=== PATIENT | male | born 1960 | race Caucasian/White ===

== ENCOUNTER → 2017-01-06 | Outpatient (CLI) | payer BC | END | disposition home or self-care (01) | LOC: LABWHC1 11:00 | PROVIDERS: ATTEND Surgery | DX: Z76.82 Awaiting organ transplant status (principal) | CPT/HCPCS: 36415 ==

== ENCOUNTER → 2017-01-25 | Outpatient (CLI) | payer BC ==
[2017-01-25 11:13] LABS: Prostate Specific Antigen 1.65 ng/mL (0.00-4.00)
[2017-01-25 11:25] LABS: Hemoglobin A1C 7.1 % (4.2-6.1)
== END | disposition home or self-care (01) ==
LOC: LABWHC1 08:17
PROVIDERS: ATTEND Surgery
DX: R94.4 Abnormal results of kidney function studies (principal); E78.4 Other hyperlipidemia; N40.0 Benign prostatic hyperplasia without lower urinary tract symptoms; E11.69 Type 2 diabetes mellitus with other specified complication; E03.4 Atrophy of thyroid (acquired)
CPT/HCPCS: 36415; 80061; 82565; 83036; 84153; 84443

== ENCOUNTER → 2017-02-08 | Outpatient (CLI) | payer BC | END | disposition home or self-care (01) | LOC: LABWHC1 09:19 | PROVIDERS: ATTEND Surgery | DX: Z48.22 Encounter for aftercare following kidney transplant (principal) | CPT/HCPCS: 36415 ==

== ENCOUNTER → 2017-03-08 | Outpatient (CLI) | payer BC ==
[2017-03-08 11:55] LABS: Anion Gap 13 mmol/L; Blood Urea Nitrogen 76 mg/dL (9-20); Carbon Dioxide 18 mmol/L (22-30); Chloride 111 mmol/L (98-107); Glucose 111 mg/dL (74-99); Non-African American GFR(MDRD) 16 (>60 ml/min/1.73 sqM); Potassium 5.4 mmol/L (3.5-5.1); Sodium 142 mmol/L (137-145)
== END ==
LOC: LABWHC1 11:19
PROVIDERS: ATTEND Internal Medicine Nephrology
DX: N18.4 Chronic kidney disease, stage 4 (severe) (principal)
CPT/HCPCS: 36415; 80048

== ENCOUNTER → 2017-04-19 | Outpatient (CLI) | payer BC ==
[2017-04-19 08:54] LABS: Basophils % (A) 1 %; CH 30.6; CHCM 35.6; Eosinophils # (A) 0.2 k/uL (0-0.7); Eosinophils % (A) 6 %; HCT 30.1 % (39.0-53.0); HDW 3.15; HGB 10.9 gm/dL (13.0-17.5); Luc # (Auto) 0.13; Luc % (Auto) 4; Lymphocytes # (A) 0.8 k/uL (1.0-4.8); Lymphocytes % (A) 22 %; MCH 31.4 pg (25.0-35.0); MCHC 36.4 g/dL (31.0-37.0); MCV 86.3 fL (80.0-100.0); Mean Platelet Volume 7.5; Monocytes # (A) 0.3 k/uL (0-1.0); Monocytes % (A) 8 %; Neutrophils # (A) 2.2 k/uL (1.3-7.7); Neutrophils % (A) 60 %; RBC 3.48 m/uL (4.30-5.90); WBC 3.7 k/uL (3.8-10.6); WBC (Perox) 3.72
[2017-04-19 08:57] LABS: Appearance,Urine Clear (Clear); Bacteria,Urine Rare /hpf; Bilirubin,Urine Negative (Negative); Glucose,Urine (UA) Trace (Negative); Ketones,Urine Negative (Negative); Leukocyte Esterase,Urine Negative (Negative); Nitrite,Urine Negative (Negative); Particle Count 640; Protein,Urine 2+ (Negative); RBC,Urine <1 /hpf (0-5); Specific Gravity,Urine 1.009 (1.001-1.035); UA Billing (MACRO vs. MICRO) MICRO; Urobilinogen,Urine <2.0 mg/dL (<2.0); WBC,Urine 1 /hpf (0-5)
[2017-04-19 09:44] LABS: Calcium 9.2 mg/dL (8.4-10.2); Phosphorous 4.5 mg/dL (2.5-4.5); Potassium 4.8 mmol/L (3.5-5.1); Uric Acid 7.5 mg/dL (3.5-8.5)
[2017-04-19 09:53] LABS: % Iron Saturation 28.1 % (20-50)
== END | disposition home or self-care (01) ==
LOC: LABWHC1 08:33
PROVIDERS: ATTEND Internal Medicine Nephrology
DX: D64.9 Anemia, unspecified (principal); N18.4 Chronic kidney disease, stage 4 (severe); E55.9 Vitamin D deficiency, unspecified; E21.3 Hyperparathyroidism, unspecified; M10.9 Gout, unspecified; N39.0 Urinary tract infection, site not specified
CPT/HCPCS: 36415; 80048; 81001; 82306; 82728; 83540; 83550; 83735; 83970; 84100; 84550; 85025

== ENCOUNTER → 2017-06-20 | Outpatient (CLI) | payer BC ==
[2017-06-20 10:28] LABS: Basophils % (A) 1 %; CHCM 36.5; Eosinophils # (A) 0.2 k/uL (0-0.7); Eosinophils % (A) 4 %; HCT 32.5 % (39.0-53.0); HDW 3.08; HGB 11.5 gm/dL (13.0-17.5); Luc # (Auto) 0.12; Luc % (Auto) 3; Lymphocytes # (A) 0.8 k/uL (1.0-4.8); Lymphocytes % (A) 18 %; MCH 31.1 pg (25.0-35.0); MCHC 35.3 g/dL (31.0-37.0); MCV 88.1 fL (80.0-100.0); Mean Platelet Volume 8.6; Monocytes # (A) 0.2 k/uL (0-1.0); Monocytes % (A) 5 %; Neutrophils # (A) 3.1 k/uL (1.3-7.7); Neutrophils % (A) 69 %; RBC 3.69 m/uL (4.30-5.90); RDW 14.9 % (11.5-15.5); WBC 4.5 k/uL (3.8-10.6); WBC (Perox) 4.64
[2017-06-20 10:40] LABS: Appearance,Urine Clear (Clear); Bilirubin,Urine Negative (Negative); Glucose,Urine (UA) Negative (Negative); Ketones,Urine Negative (Negative); Leukocyte Esterase,Urine Negative (Negative); Nitrite,Urine Negative (Negative); PH, Urine 5.5 (5.0-8.0); Particle Count 457; Protein,Urine 1+ (Negative); Specific Gravity,Urine 1.006 (1.001-1.035); UA Billing (MACRO vs. MICRO) MICRO; Urobilinogen,Urine <2.0 mg/dL (<2.0); WBC,Urine <1 /hpf (0-5)
[2017-06-20 12:09] LABS: Calcium 9.4 mg/dL (8.4-10.2); Magnesium 1.6 mg/dL (1.6-2.3); Potassium 5.7 mmol/L (3.5-5.1); Uric Acid 7.6 mg/dL (3.5-8.5)
[2017-06-20 12:22] LABS: % Iron Saturation 31.1 % (20-50)
[2017-06-20 14:23] LABS: Hemoglobin A1C 7.8 % (4.2-6.1)
== END | disposition home or self-care (01) ==
LOC: LABWHC1 09:55
PROVIDERS: ATTEND Internal Medicine
DX: N18.4 Chronic kidney disease, stage 4 (severe) (principal); M10.9 Gout, unspecified; N39.0 Urinary tract infection, site not specified; E78.4 Other hyperlipidemia; E11.69 Type 2 diabetes mellitus with other specified complication; R53.83 Other fatigue; E87.8 Other disorders of electrolyte and fluid balance, not elsewhere classified
CPT/HCPCS: 36415; 80048; 80061; 81001; 82306; 83036; 83540; 83550; 83735; 83970; 84100; 84443; 84550; 85025

== ENCOUNTER → 2017-07-08 | Outpatient (CLI) | payer BC ==
--- NOTE | 2017-07-08 13:25 | US ---
EXAMINATION TYPE: US abdomen comp/pelvis limited DATE OF EXAM: 07/08/2017 COMPARISON: NONE CLINICAL HISTORY: N18.4 Chronic kidney disease stage 4. EXAM MEASUREMENTS: Liver Length: 15.6 cm Gallbladder Wall: 0.4 cm CBD: 0.4 cm Spleen: 14.0 cm Right Kidney: 8.8 x 3.7 x 3.3 cm Left Kidney: 12.0 x 5.5 x 5.3 cm Large body habitus, extensive overlying bowel gas. Pancreas: Obscured by bowel gas Liver: left lobe obscured by bowel gas Gallbladder:JASON sign, cholelithiases Evidence for sonographic Roblero's sign: No CBD: wnl Spleen: enlarged Right Kidney: atrophied, cyst measuring 1.4 x 1.5 x 1.2cm, inferior pole obscure by bowel gas Left Kidney: cyst measuring 1.0 x 0.7 x 1.1cm Upper IVC: wnl Abd Aorta: portions obscured by overlying bowel gas Bladder: wall measures 5mm The liver is homogenous. The intrahepatic portion of the IVC and proximal abdominal aorta are within normal limits. There is evidence of cholelithiasis. Common bile duct is unremarkable. The visualize d portions of the pancreas are homogenous. The spleen is unremarkable. IMPRESSION: 1. There is evidence of cholelithiasis. 2. Renal cysts. 3. Atrophic changes right kidney.
== END | disposition home or self-care (01) ==
LOC: RADUSWWP 12:08
PROVIDERS: ATTEND Internal Medicine Nephrology
DX: N28.1 Cyst of kidney, acquired (principal); N26.1 Atrophy of kidney (terminal); N18.4 Chronic kidney disease, stage 4 (severe)
CPT/HCPCS: 76700; 76857

== ENCOUNTER 2017-10-29 18:52 | Inpatient (IN) | payer BC, MEDICARE ==
[2017-10-29] MEDS ORDERED: SODIUM CHLORIDE 0.9% 1,000 ML IV STA (19:13)
--- NOTE | 2017-10-29 19:16 | ED ---
General Adult HPI - General Chief complaint: Recheck/Abnormal Lab/Rx Stated complaint: catheter problem/infection Time Seen by Provider: 10/29/17 19:06 Source: patient, RN notes reviewed Mode of arrival: ambulatory Limitations: no limitations - History of Present Illness Initial comments: 57-year-old male who presents emergency room today with chief complaint of infection to peritoneal dialysis catheter. Patient does admit that he had a catheter placed on 10/06/2017. States he follow back up to surgery today was advised coming here to the emergency room for admission. He states that the catheter does need to be removed. Patient does not that is currently on Keflex. He states that he noticed redness across the lower abdomen starting 3 days ago. Patient doesn't some pain locally. he does admit to some drainage locally to the incision site and around the tubing. Patient denies any other complaints or symptoms. Patient denies any recent fever, chills, shortness of breath, chest pain, back pain, nausea or vomiting, numbness or tingling, dysuria or hematuria, constipation or diarrhea, headaches or visual changes, or any other complaints. - Related Data Home Medications Medication Instructions Recorded Confirmed Aspirin 81 mg PO DAILY 03/01/14 10/29/17 Gemfibrozil [Lopid] 600 mg PO BID 03/01/14 10/29/17 Iron 45 mg PO DAILY 03/01/14 10/29/17 amLODIPine [Norvasc] 10 mg PO W/SUPPER 03/01/14 10/29/17 Atorvastatin [Lipitor] 40 mg PO HS 02/06/16 10/29/17 Cholecalciferol [Vitamin D3] 2,000 unit PO DAILY 02/06/16 10/29/17 Clotrimazole Cream [Clotrim 1 applic TOPICAL DIRECTED PRN 02/06/16 10/29/17 Antifungal Cream] Levothyroxine Sodium [Synthroid] 125 mcg PO W/SUPPER 02/06/16 10/29/17 cloNIDine HCL [Catapres] 0.1 mg PO BID 02/06/16 10/29/17 Allopurinol [Zyloprim] 1 tab PO DAILY 09/22/17 10/29/17 Furosemide [Lasix] 1 tab PO TID 09/22/17 10/29/17 Insulin Lispro [humaLOG Kwikpen] See Protocol SQ DAILY 09/22/17 10/29/17 Sodium Bicarbonate Tab 1 tab PO TID 09/22/17 10/29/17 Hydrocodone/Acetaminophen [[place] 1 - 2 tab PO Q4HR PRN 10/29/17 10/29/17 5-325] Allergies Allergy/AdvReac Type Severity Reaction Status Date / Time No Known Allergies Allergy Verified 10/29/17 19:31 Review of Systems ROS Statement: Those systems with pertinent positive or pertinent negative responses have been documented in the HPI. ROS Other: All systems not noted in ROS Statement are negative. Past Medical History Past Medical History: Diabetes Mellitus, GERD/Reflux, Hyperlipidemia, Hypertension, Renal Disease, Sleep Apnea/CPAP/BIPAP, Thyroid Disorder Additional Past Medical History / Comment(s): varicose veins, fatty liver, states one kidney not functioning properly, rash that comes and goes, History of Any Multi-Drug Resistant Organisms: None Reported Past Surgical History: Orthopedic Surgery, Tonsillectomy Additional Past Surgical History / Comment(s): ORIF- left hip, ancelmo shoulder rotator cuff, uvula removed Past Anesthesia/Blood Transfusion Reactions: No Reported Reaction Past Psychological History: No Psychological Hx Reported Smoking Status: Never smoker Past Alcohol Use History: None Reported Past Drug Use History: None Reported - Past Family History Father Family Medical History: Cancer, Deep Vein Thrombosis (DVT) General Exam - General Exam Comments Initial Comments: General: The patient is awake and alert, in no distress, and does not appear acutely ill. Eye: Pupils are equal, round and reactive to light, extra-ocular movements are intact. No nystagmus. There is normal conjunctiva bilaterally. No signs of icterus. Ears, nose, mouth and throat: There are moist mucous membranes and no oral lesions. Neck: The neck is supple, there is no tenderness or JVD. Cardiovascular: There is a regular rate and rhythm. No murmur, rub or gallop is appreciated. Respiratory: Lungs are clear to auscultation, respirations are non-labored, breath sounds are equal. No wheezes, stridor, rales, or rhonchi. Gastrointestinal: There is redness to the lower abdomen. There is some drainage purulent in color around the incision site and tubing. Lower abdomen area of Firmness that is locally tender. Musculoskeletal: Normal ROM, no tenderness. Strength 5/5. Sensation intact. Pulses equal bilaterally 2+. Neurological: A&O x 3. CN II-XII intact, There are no obvious motor or sensory deficits. Coordination appears grossly intact. Speech is normal. Psychiatric: Cooperative, appropriate mood & affect, normal judgment. Limitations: no limitations Course Vital Signs 10/29/17 19:02 Temperature 98.7 F Pulse Rate 93 Respiratory 17 Rate Blood Pressure 141/70 O2 Sat by Pulse 97 Oximetry Medical Decision Making - Medical Decision Making Case discussed with attending Dr Peraza who discussed case with Dr Guerrero who will admit the patient with consults to Dr Pineda, Dr Harrell, and Dr Uriostegui. Patient will be started on antibiotic of Rocephin and vancomycin. Patient is aware the plan - Lab Data Result diagrams: 10/29/17 19:30 10/29/17 19:30 Lab Results 10/29/17 10/29/17 10/29/17 Range/Units 19:30 19:30 19:30 WBC 7.3 (3.8-10.6) k/uL RBC 3.52 L (4.30-5.90) m/uL Hgb 10.3 L (13.0-17.5) gm/dL Hct 30.0 L (39.0-53.0) % MCV 85.2 (80.0-100.0) fL MCH 29.3 (25.0-35.0) pg MCHC 34.4 (31.0-37.0) g/dL RDW 13.7 (11.5-15.5) % Plt Count 221 (150-450) k/uL Neutrophils % 79 % Lymphocytes % 9 % Monocytes % 7 % Eosinophils % 4 % Basophils % 1 % Neutrophils # 5.7 (1.3-7.7) k/uL Lymphocytes # 0.6 L (1.0-4.8) k/uL Monocytes # 0.5 (0-1.0) k/uL Eosinophils # 0.3 (0-0.7) k/uL Basophils # 0.1 (0-0.2) k/uL PT (9.0-12.0) sec INR (<1.2) APTT (22.0-30.0) sec Sodium 137 (137-145) mmol/L Potassium 3.5 (3.5-5.1) mmol/L Chloride 95 L (98-107) mmol/L Carbon Dioxide 25 (22-30) mmol/L Anion Gap 17 mmol/L BUN 95 H* (9-20) mg/dL Creatinine 4.52 H (0.66-1.25) mg/dL Est GFR (MDRD) Af Amer 16 (>60 ml/min/1.73 sqM) Est GFR (MDRD) Non-Af 14 (>60 ml/min/1.73 sqM) Glucose 265 H (74-99) mg/dL Plasma Lactic Acid Johnny 1.0 (0.7-2.0) mmol/L Calcium 9.4 (8.4-10.2) mg/dL Total Bilirubin 0.3 (0.2-1.3) mg/dL AST 13 L (17-59) U/L ALT 25 (21-72) U/L Alkaline Phosphatase 85 (38-126) U/L Total Protein 6.2 L (6.3-8.2) g/dL Albumin 3.8 (3.5-5.0) g/dL 10/29/17 Range/Units 19:30 WBC (3.8-10.6) k/uL RBC (4.30-5.90) m/uL Hgb (13.0-17.5) gm/dL Hct (39.0-53.0) % MCV (80.0-100.0) fL MCH (25.0-35.0) pg MCHC (31.0-37.0) g/dL RDW (11.5-15.5) % Plt Count (150-450) k/uL Neutrophils % % Lymphocytes % % Monocytes % % Eosinophils % % Basophils % % Neutrophils # (1.3-7.7) k/uL Lymphocytes # (1.0-4.8) k/uL Monocytes # (0-1.0) k/uL Eosinophils # (0-0.7) k/uL Basophils # (0-0.2) k/uL PT 9.9 (9.0-12.0) sec INR 1.0 (<1.2) APTT 22.8 (22.0-30.0) sec Sodium (137-145) mmol/L Potassium (3.5-5.1) mmol/L Chloride (98-107) mmol/L Carbon Dioxide (22-30) mmol/L Anion Gap mmol/L BUN (9-20) mg/dL Creatinine (0.66-1.25) mg/dL Est GFR (MDRD) Af Amer (>60 ml/min/1.73 sqM) Est GFR (MDRD) Non-Af (>60 ml/min/1.73 sqM) Glucose (74-99) mg/dL Plasma Lactic Acid Johnny (0.7-2.0) mmol/L Calcium (8.4-10.2) mg/dL Total Bilirubin (0.2-1.3) mg/dL AST (17-59) U/L ALT (21-72) U/L Alkaline Phosphatase (38-126) U/L Total Protein (6.3-8.2) g/dL Albumin (3.5-5.0) g/dL Disposition Clinical Impression: Abdominal wall cellulitis, Postoperative wound infection Disposition: ADMITTED IP TO THIS [facility] Condition: Stable Referrals: Manoj Flores MD [Primary Care Provider] - 1-2 days Time of Disposition: 19:36
[2017-10-29] MEDS ORDERED: VANCOMYCIN IV PER PHARMACY 1 EACH MISC MISCELLANE PRN (19:32)
[2017-10-29] MEDS ORDERED: cefTRIAXone IN SWFI 1,000 MG/10 ML SYRINGE IVP STA (19:32)
[2017-10-29] MEDS ORDERED: VANCOMYCIN 1,000 MG in SODIUM CHLORIDE 0.9% 250 ML IVPB STA (19:32)
[2017-10-29] MEDS ORDERED: VANCOMYCIN 2,000 MG in SODIUM CHLORIDE 0.9% 500 ML IVPB ONE (19:45)
[2017-10-29 19:49] LABS: Basophils # (A) 0.1 k/uL (0-0.2); Basophils % (A) 1 %; Eosinophils # (A) 0.3 k/uL (0-0.7); Eosinophils % (A) 4 %; HGB 10.3 gm/dL (13.0-17.5); Lymphocytes # (A) 0.6 k/uL (1.0-4.8); Lymphocytes % (A) 9 %; MCH 29.3 pg (25.0-35.0); MCHC 34.4 g/dL (31.0-37.0); MCV 85.2 fL (80.0-100.0); Mean Platelet Volume 7.7; Monocytes # (A) 0.5 k/uL (0-1.0); Monocytes % (A) 7 %; Neutrophils # (A) 5.7 k/uL (1.3-7.7); Neutrophils % (A) 79 %; Platelet Count 221 k/uL (150-450); RBC 3.52 m/uL (4.30-5.90); RDW 13.7 % (11.5-15.5); WBC 7.3 k/uL (3.8-10.6)
[2017-10-29 20:03] LABS: Partial Thromboplastin Time 22.8 sec (22.0-30.0); Prothrombin Time 9.9 sec (9.0-12.0)
[2017-10-29 20:05] LABS: Albumin 3.8 g/dL (3.5-5.0); Calcium 9.4 mg/dL (8.4-10.2); Potassium 3.5 mmol/L (3.5-5.1); Total Bilirubin 0.3 mg/dL (0.2-1.3); Total Protein 6.2 g/dL (6.3-8.2)
[2017-10-29] MEDS ORDERED: NALOXONE 0.4 MG/ML 1 ML VIAL IV PRN (20:09)
[2017-10-29] MEDS ORDERED: ONDANSETRON 4 MG/2 ML VIAL IVP PRN (20:09)
[2017-10-29 20:17] LABS: Appearance,Urine Clear (Clear); Bilirubin,Urine Negative (Negative); Blood,Urine Small (Negative); Color,Urine Light Yellow; Glucose,Urine (UA) 2+ (Negative); Ketones,Urine Negative (Negative); Leukocyte Esterase,Urine Negative (Negative); Mucus,Urine Rare /hpf; Nitrite,Urine Negative (Negative); PH, Urine 5.5 (5.0-8.0); Protein,Urine 1+ (Negative); RBC,Urine 1 /hpf (0-5); Urobilinogen,Urine <2.0 mg/dL (<2.0); WBC,Urine 2 /hpf (0-5)
[2017-10-29 21:58] VITALS: BMI 34.2
[2017-10-29 22:04] LABS: Glucose,Whole Blood 272 mg/dL (75-99)
[2017-10-29] MEDS ORDERED: INSULIN ASPART 100 UNIT/ML 1 ML 10 ML VIAL SQ ONE (23:25)
[2017-10-29] MEDS: ATORVASTATIN 40 MG TAB PO SCH (23:43)
[2017-10-29] MEDS: amLODIPine 10 MG TAB PO SCH (23:43)
[2017-10-29] MEDS: cloNIDine HCL 0.1 MG TAB PO SCH (23:43)
[2017-10-29] MEDS: SODIUM CHLORIDE 0.9% 1,000 ML IV SCH (23:51)
[2017-10-29] MEDS: ACETAMINOPHEN TAB 325 MG TAB PO PRN (23:54)
[2017-10-30 07:33] LABS: Glucose,Whole Blood 182 mg/dL (75-99)
--- NOTE | 2017-10-30 08:20 | P.CONS ---
History of Present Illness - History of Present Illness Chief complaint Pain and erythema and swelling of the abdominal wall. History of present illness The patient is a 57-year-old gentleman who has chronic kidney disease and underwent peritoneal dialysis catheter placement on 10/06/2017. Apparently last week he had some chills. When patient was at the dialysis center 4 days ago it was found that he had some erythema near the catheter apparently and was placed on Keflex. Symptoms continued to progress with increasing erythema and discomfort. Patient was told to come to the emergency room yesterday and has been admitted under surgery Dr. Guerrero and I have been consulted for medicine. The patient this morning states he feels somewhat better. Past medical history Patient does have chronic kidney disease. This has likely been related to hypertensive nephrosclerosis along with diabetic nephropathy apparently type II since he has been about 42 years old. 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 History of hyperlipidemia Hypothyroidism Obesity History of sleep apnea. No history of myocardial infarction or stroke. Past surgical history Patient also had an elective cholecystectomy last month. He has had previous left eye surgery. He has had right rotator cuff surgery in 2013 and left rotator cuff surgery in 2005 Previous fissurectomy and sphincterotomy Left hip surgery with screw placement. Previous tonsillectomy with removal of uvula and soft palate. No known medical ALLERGIES Home medications Atorvastatin 40 mg at at bedtime Clonidine 0.1 mg twice a day Amlodipine 10 mg with supper Sodium bicarb 1 tablet 3 times a day Synthroid 125 g with supper Iron, 45 mg daily Insulin per Accu-Cheks daily [place] 5-325 one to 2 every 4 hours when necessary pain Lopid 600 mg twice a day Lasix up to 3 times daily. Clotrimazole antifungal cream applied as needed Vitamin D3 2000 units daily Aspirin 81 mg daily Allopurinol 100 mg, 1 daily Review of systems Basically as in the history of present illness. Patient denies any unusual headaches. No visual disturbances. No cough or phlegm production. Denies chest pain or shortness of breath. No nausea or vomiting. Denies any urinary or bowel symptoms at this time. No unusual edema. Family history positive for diabetes apparently with siblings and his mother Thyroid disease also Father with lung cancer Social history No history of smoking or illicit drug usage. Lives locally with his . Physical examination This morning temperature 97.5 with a pulse of 93 and respirations 16. Blood pressure 141/80 and he is 95% saturated on room air. Head and neck exam unremarkable. Extraocular movements intact. Neck supple. No adenopathy, thyromegaly or bruits detected. Lungs were clear to auscultation. Heart tones were regular without murmurs or rubs appreciated. Abdomen with erythema across the lower abdomen, worse around the site of the peritoneal catheter on the right lower region. There is some swelling of the abdominal wall and tenderness noted. No unusual distal leg edema. Neurologically he is alert and oriented. No cranial nerve deficits. No focal weakness noted. Laboratory White count 7.3 with hemoglobin 10.3 and MCV of 85. platelet count of 221 INR 1.0 Sodium 137 with a potassium of 3.5. CO2 content 25. BUN 95 with a creatinine 4.52 a GFR of 14. Initial blood sugar of 265, down to 182. Lactic acid level 1.0 Calcium 9.4, liver function tests were generally unremarkable with a albumin of 3.8. Urinalysis showed negative leukocyte esterase. And only 2 white cells present. Impressions 1. Cellulitis of the abdominal wall after placement of a peritoneal dialysis catheter. Not responding to outpatient antibiotics. 2. Chronic kidney disease stage V also apparently on the transplant list 3. Hypertension 4. Type 2 diabetes 5. Hyperlipidemia 6. Hypothyroidism 7. Obesity 8. Sleep apnea 9. Past surgical history as stated above. Plan Antibiotics in the form of Rocephin and vancomycin have been started. Home medications to be continued. Consultations with infectious disease have been placed. Surgery will evaluate today. He will be continued on Accu-Cheks and coverage. Medications for hypertension and his thyroid to be continued. Further recommendations pending clinical response and results of above. Discussed with patient and nursing staff this morning. Past Medical History Past Medical History: Diabetes Mellitus, GERD/Reflux, Hyperlipidemia, Hypertension, Renal Disease, Sleep Apnea/CPAP/BIPAP, Thyroid Disorder Additional Past Medical History / Comment(s): varicose veins, fatty liver, states one kidney not functioning properly, rash that comes and goes, History of Any Multi-Drug Resistant Organisms: None Reported Past Surgical History: Orthopedic Surgery, Tonsillectomy Additional Past Surgical History / Comment(s): ORIF- left hip, ancelmo shoulder rotator cuff, uvula removed Past Anesthesia/Blood Transfusion Reactions: No Reported Reaction Past Psychological History: No Psychological Hx Reported Smoking Status: Never smoker Past Alcohol Use History: None Reported Past Drug Use History: None Reported - Past Family History Father Family Medical History: Cancer, Deep Vein Thrombosis (DVT) Medications and Allergies Home Medications Medication Instructions Recorded Confirmed Type Aspirin 81 mg PO DAILY 03/01/14 10/29/17 History Gemfibrozil [Lopid] 600 mg PO BID 03/01/14 10/29/17 History Iron 45 mg PO DAILY 03/01/14 10/29/17 History amLODIPine [Norvasc] 10 mg PO W/SUPPER 03/01/14 10/29/17 History Atorvastatin [Lipitor] 40 mg PO HS 02/06/16 10/29/17 History Cholecalciferol [Vitamin D3] 2,000 unit PO DAILY 02/06/16 10/29/17 History Clotrimazole Cream [Clotrim 1 applic TOPICAL DIRECTED PRN 02/06/16 10/29/17 History Antifungal Cream] Levothyroxine Sodium [Synthroid] 125 mcg PO W/SUPPER 02/06/16 10/29/17 History cloNIDine HCL [Catapres] 0.1 mg PO BID 02/06/16 10/29/17 History Allopurinol [Zyloprim] 1 tab PO DAILY 09/22/17 10/29/17 History Furosemide [Lasix] 1 tab PO TID 09/22/17 10/29/17 History Insulin Lispro [humaLOG Kwikpen] See Protocol SQ DAILY 09/22/17 10/29/17 History Sodium Bicarbonate Tab 1 tab PO TID 09/22/17 10/29/17 History Hydrocodone/Acetaminophen [[place] 1 - 2 tab PO Q4HR PRN 10/29/17 10/29/17 History 5-325] Allergies Allergy/AdvReac Type Severity Reaction Status Date / Time No Known Allergies Allergy Verified 10/29/17 19:31 Physical Exam Vitals: Vital Signs Temp Pulse Pulse Resp BP BP Pulse Ox 10/30/17 07:00 97.5 F L 93 16 141/80 95 10/29/17 21:45 99.1 F 93 18 161/77 95 10/29/17 21:23 99.1 F 93 18 164/78 94 L 10/29/17 19:02 98.7 F 93 17 141/70 97 Intake and Output 10/29/17 10/30/17 10/30/17 22:59 06:59 14:59 Other: # Voids 1 Weight 102 kg Results CBC & Chem 7: 10/29/17 19:30 10/29/17 19:30 Labs: Abnormal Lab Results - Last 24 Hours (Table) 10/29/17 10/29/17 10/29/17 Range/Units 19:30 19:30 19:50 RBC 3.52 L (4.30-5.90) m/uL Hgb 10.3 L (13.0-17.5) gm/dL Hct 30.0 L (39.0-53.0) % Lymphocytes # 0.6 L (1.0-4.8) k/uL Chloride 95 L (98-107) mmol/L BUN 95 H* (9-20) mg/dL Creatinine 4.52 H (0.66-1.25) mg/dL Glucose 265 H (74-99) mg/dL POC Glucose (mg/dL) (75-99) mg/dL AST 13 L (17-59) U/L Total Protein 6.2 L (6.3-8.2) g/dL Urine Protein 1+ H (Negative) Urine Glucose (UA) 2+ H (Negative) Urine Blood Small H (Negative) Urine Mucus Rare H (None) /hpf 10/29/17 10/30/17 Range/Units 22:01 06:59 RBC (4.30-5.90) m/uL Hgb (13.0-17.5) gm/dL Hct (39.0-53.0) % Lymphocytes # (1.0-4.8) k/uL Chloride (98-107) mmol/L BUN (9-20) mg/dL Creatinine (0.66-1.25) mg/dL Glucose (74-99) mg/dL POC Glucose (mg/dL) 272 H 182 H (75-99) mg/dL AST (17-59) U/L Total Protein (6.3-8.2) g/dL Urine Protein (Negative) Urine Glucose (UA) (Negative) Urine Blood (Negative) Urine Mucus (None) /hpf Microbiology - Last 24 Hours (Table) 10/29/17 19:50 Gram Stain - Preliminary Abdomen Wound Culture - Preliminary
[2017-10-30 09:26] LABS: Basophils % (A) 1 %; Eosinophils # (A) 0.3 k/uL (0-0.7); Eosinophils % (A) 5 %; HCT 29.1 % (39.0-53.0); Lymphocytes # (A) 0.7 k/uL (1.0-4.8); Lymphocytes % (A) 13 %; MCH 29.3 pg (25.0-35.0); MCHC 34.3 g/dL (31.0-37.0); MCV 85.4 fL (80.0-100.0); Mean Platelet Volume 7.6; Monocytes # (A) 0.4 k/uL (0-1.0); Monocytes % (A) 8 %; Neutrophils % (A) 72 %; Platelet Count 190 k/uL (150-450); RBC 3.41 m/uL (4.30-5.90); RDW 12.8 % (11.5-15.5); WBC 5.5 k/uL (3.8-10.6)
[2017-10-30 09:44] LABS: Albumin 3.3 g/dL (3.5-5.0); Calcium 9.1 mg/dL (8.4-10.2); Potassium 3.6 mmol/L (3.5-5.1); Total Bilirubin 0.2 mg/dL (0.2-1.3); Total Protein 5.6 g/dL (6.3-8.2)
[2017-10-30] MEDS: INSULIN ASPART 100 UNIT/ML 1 ML 10 ML VIAL SQ SCH ×4 (09:46→23:03)
[2017-10-30] MEDS: cefTRIAXone IN SWFI 1,000 MG/10 ML SYRINGE IVP SCH (09:47)
[2017-10-30] MEDS: cloNIDine HCL 0.1 MG TAB PO SCH ×2 (10:22→21:03)
[2017-10-30] MEDS ORDERED: IV FLUID CONTINUATION 1,000 ML IV ONE (11:40)
[2017-10-30 11:49] LABS: Glucose,Whole Blood 186 mg/dL (75-99)
[2017-10-30] MEDS ORDERED: VANCOMYCIN 2,000 MG in SODIUM CHLORIDE 0.9% 500 ML IVPB ONE (12:00)
--- NOTE | 2017-10-30 12:02 | P.CONS ---
History of Present Illness - Reason for Consult Consult date: 10/30/17 Abdominal wall cellulitis - History of Present Illness This is a 57-year-old male patient gives history that on September 22 he underwent cholecystectomy with Dr. Guerrero and following that on October 06 he had a CAPD catheter placed. 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 He has had diabetes for more than 20 years. His last hemoglobin A1c was 9.2 done last week as an outpatient. He does have an appointment with Dr. Vickie Siddiqi on November 10. Patient states that he has been going to the dialysis Center to learn how to do CAPD and on Friday he was therefore training and he noticed there was increased redness and swelling. He was sent to [facility] an ultrasound was done which he reports as negative. Patient was also placed on Keflex and initially the redness seemed to be a little bit better but she he continued to have hardness and swelling to the area. He denies having any nausea or vomiting. He did have 2 loose stools yesterday. Patient states the redness continued to worsen and then he developed drainage from around the catheter and felt fevers and chills but temperature was never over 100. Patient does make urine and denies any dysuria, flank pain. He denies any lower extremity edema. Patient was found to be afebrile with a white count of 7.3. BUN 95 and creatinine 4.52. Wound culture was obtained and in process with gram-positive cocci. Blood cultures as received. Patient was started on Rocephin and vancomycin and admitted to the hospital in the care of Dr. Guerrero. Review of Systems All systems: negative Constitutional: Reports anorexia, Reports chills, Reports fatigue, Reports fever , Reports poor appetite Eyes: denies blurred vision, denies pain Ears, nose, mouth and throat: Denies dental pain, Denies headache, Denies mouth pain, Denies sore throat Cardiovascular: Denies chest pain, Denies decreased exercise tolerance, Denies dyspnea on exertion, Denies edema, Denies leg edema, Denies lightheadedness, Denies shortness of breath, Denies syncope Respiratory: Reports cough, Denies cough with sputum, Denies dyspnea, Denies excessive sputum, Denies hemoptysis, Denies home oxygen, Denies wheezing Gastrointestinal: Reports abdominal pain, Denies diarrhea, Denies nausea, Denies vomiting Genitourinary: Denies dysuria Musculoskeletal: Denies myalgias Integumentary: Reports wounds, Denies pruritus, Denies rash Neurological: Denies numbness, Denies weakness Psychiatric: Denies anxiety, Denies depression Endocrine: Denies fatigue, Denies weight change Past Medical History Past Medical History: Diabetes Mellitus, GERD/Reflux, Hyperlipidemia, Hypertension, Renal Disease, Sleep Apnea/CPAP/BIPAP, Thyroid Disorder Additional Past Medical History / Comment(s): varicose veins, fatty liver, states one kidney not functioning properly, rash that comes and goes, end-stage renal disease started on CAPD History of Any Multi-Drug Resistant Organisms: None Reported Past Surgical History: Cholecystectomy, Orthopedic Surgery, Tonsillectomy Additional Past Surgical History / Comment(s): ORIF- left hip, ancelmo shoulder rotator cuff, uvula removed, CAPD catheter placement Past Anesthesia/Blood Transfusion Reactions: No Reported Reaction Past Psychological History: No Psychological Hx Reported Smoking Status: Never smoker Past Alcohol Use History: None Reported Additional Past Alcohol Use History / Comment(s): She is a lifelong nonsmoker. He denies any medical marijuana, marijuana, street drug or alcohol use. He lives at home with his , son and granddaughter. There is a cat in the home. He denies any service. 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 Past Drug Use History: None Reported - Past Family History Father Family Medical History: Cancer, Deep Vein Thrombosis (DVT) Medications and Allergies Home Medications Medication Instructions Recorded Confirmed Type Aspirin 81 mg PO DAILY 03/01/14 10/29/17 History Gemfibrozil [Lopid] 600 mg PO BID 03/01/14 10/29/17 History Iron 45 mg PO DAILY 03/01/14 10/29/17 History amLODIPine [Norvasc] 10 mg PO W/SUPPER 03/01/14 10/29/17 History Atorvastatin [Lipitor] 40 mg PO HS 02/06/16 10/29/17 History Cholecalciferol [Vitamin D3] 2,000 unit PO DAILY 02/06/16 10/29/17 History Clotrimazole Cream [Clotrim 1 applic TOPICAL DIRECTED PRN 02/06/16 10/29/17 History Antifungal Cream] Levothyroxine Sodium [Synthroid] 125 mcg PO W/SUPPER 02/06/16 10/29/17 History cloNIDine HCL [Catapres] 0.1 mg PO BID 02/06/16 10/29/17 History Allopurinol [Zyloprim] 1 tab PO DAILY 09/22/17 10/29/17 History Furosemide [Lasix] 1 tab PO TID 09/22/17 10/29/17 History Insulin Lispro [humaLOG Kwikpen] See Protocol SQ DAILY 09/22/17 10/29/17 History Sodium Bicarbonate Tab 1 tab PO TID 09/22/17 10/29/17 History Hydrocodone/Acetaminophen [[place] 1 - 2 tab PO Q4HR PRN 10/29/17 10/29/17 History 5-325] Allergies Allergy/AdvReac Type Severity Reaction Status Date / Time No Known Allergies Allergy Verified 10/29/17 19:31 Physical Exam Vitals: Vital Signs Temp Pulse Pulse Resp BP BP Pulse Ox 10/30/17 07:00 97.5 F L 93 16 141/80 95 10/29/17 21:45 99.1 F 93 18 161/77 95 10/29/17 21:23 99.1 F 93 18 164/78 94 L 10/29/17 19:02 98.7 F 93 17 141/70 97 Intake and Output 10/29/17 10/30/17 10/30/17 22:59 06:59 14:59 Other: # Voids 1 Weight 102 kg Gen: This is a 57-year-old obese male. He is sitting up in bed and appears to be in no acute distress. HEENT: Head is atraumatic, normocephalic. Pupils equal, round. Sclerae is anicteric. Conjunctiva pink. Mucous members of the mouth are somewhat dry. Dentition is in fair order. No thrush noted. NECK: Short and thick. Supple. No JVD. No lymphadenopathy. No thyromegaly. LUNGS: Clear to auscultation. No wheezes or rhonchi. No intercostal retractions. HEART: Irregular rate and rhythm. No murmur. ABDOMEN: Soft. Bowel sounds are present. There is redness, edema across lower abdomen. CAPD catheter right of umbilicus with puncture wound between the CAPD catheter and umbilicus that is draining serosanguineous fluid. Minimal pressure exerted to express significant drainage. EXTREMITIES: No pedal edema. No calf tenderness. Dorsalis pedis +2 bilaterally. NEUROLOGICAL: Patient is awake, alert and oriented x3. Cranial nerves 2 through 12 are grossly intact. Results CBC & Chem 7: 10/30/17 08:56 10/30/17 08:56 Labs: Abnormal Lab Results - Last 24 Hours (Table) 10/29/17 10/29/17 10/29/17 Range/Units 19:30 19:30 19:50 RBC 3.52 L (4.30-5.90) m/uL Hgb 10.3 L (13.0-17.5) gm/dL Hct 30.0 L (39.0-53.0) % Lymphocytes # 0.6 L (1.0-4.8) k/uL Chloride 95 L (98-107) mmol/L BUN 95 H* (9-20) mg/dL Creatinine 4.52 H (0.66-1.25) mg/dL Glucose 265 H (74-99) mg/dL POC Glucose (mg/dL) (75-99) mg/dL AST 13 L (17-59) U/L Total Protein 6.2 L (6.3-8.2) g/dL Urine Protein 1+ H (Negative) Urine Glucose (UA) 2+ H (Negative) Urine Blood Small H (Negative) Urine Mucus Rare H (None) /hpf 10/29/17 10/30/17 Range/Units 22:01 06:59 RBC (4.30-5.90) m/uL Hgb (13.0-17.5) gm/dL Hct (39.0-53.0) % Lymphocytes # (1.0-4.8) k/uL Chloride (98-107) mmol/L BUN (9-20) mg/dL Creatinine (0.66-1.25) mg/dL Glucose (74-99) mg/dL POC Glucose (mg/dL) 272 H 182 H (75-99) mg/dL AST (17-59) U/L Total Protein (6.3-8.2) g/dL Urine Protein (Negative) Urine Glucose (UA) (Negative) Urine Blood (Negative) Urine Mucus (None) /hpf Microbiology - Last 24 Hours (Table) 10/29/17 19:50 Gram Stain - Preliminary Abdomen Wound Culture - Preliminary Assessment and Plan Plan: This is a 57-year-old male who presents to the hospital with CAPD catheter infection and cellulitis. Patient is currently on Rocephin and vancomycin which will be continued. Initial wound culture is showing gram- positive cocci and blood cultures status received. Await further evaluation by Dr. Guerrero. Patient is noted to have uncontrolled diabetes but fortunately has an appointment with Dr. Siddiqi on November 10 and hopefully blood sugars will improve. Continue supportive care. Further recommendations as patient progresses. The above dictated assessment and findings were discussed with Dr. Pineda. The impression and plan of care have been directed as dictated. Katya Gardner nurse practitioner acting as scribe for Dr. Pineda.
--- NOTE | 2017-10-30 12:23 | P.GSHP ---
History of Present Illness H&P Date: 10/30/17 Chief Complaint: Peritoneal dialysis catheter infection Patient seen in the office yesterday please refer to that office note for details regarding that encounter. He was sent to the hospital for admission. He was started on IV antibiotics. He did have drainage of purulent fluid from the incision site after he was seen in the office yesterday. Still with some drainage around the catheter exit site as well. T-max 99.5. White blood cell count is 5.5. Pain is somewhat improved. Erythema slightly improved. He has been seen by infectious disease and nephrology this morning. Gram stain showing gram-positive cocci. Past Medical History Past Medical History: Diabetes Mellitus, GERD/Reflux, Hyperlipidemia, Hypertension, Renal Disease, Sleep Apnea/CPAP/BIPAP, Thyroid Disorder Additional Past Medical History / Comment(s): varicose veins, fatty liver, states one kidney not functioning properly, rash that comes and goes, end-stage renal disease started on CAPD History of Any Multi-Drug Resistant Organisms: None Reported Past Surgical History: Cholecystectomy, Orthopedic Surgery, Tonsillectomy Additional Past Surgical History / Comment(s): ORIF- left hip, ancelmo shoulder rotator cuff, uvula removed, CAPD catheter placement Past Anesthesia/Blood Transfusion Reactions: No Reported Reaction Past Psychological History: No Psychological Hx Reported Smoking Status: Never smoker Past Alcohol Use History: None Reported Additional Past Alcohol Use History / Comment(s): She is a lifelong nonsmoker. He denies any medical marijuana, marijuana, street drug or alcohol use. He lives at home with his , son and granddaughter. There is a cat in the home. He denies any service. 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 Past Drug Use History: None Reported - Past Family History Father Family Medical History: Cancer, Deep Vein Thrombosis (DVT) Medications and Allergies Home Medications Medication Instructions Recorded Confirmed Type Aspirin 81 mg PO DAILY 03/01/14 10/29/17 History Gemfibrozil [Lopid] 600 mg PO BID 03/01/14 10/29/17 History Iron 45 mg PO DAILY 03/01/14 10/29/17 History amLODIPine [Norvasc] 10 mg PO W/SUPPER 03/01/14 10/29/17 History Atorvastatin [Lipitor] 40 mg PO HS 02/06/16 10/29/17 History Cholecalciferol [Vitamin D3] 2,000 unit PO DAILY 02/06/16 10/29/17 History Clotrimazole Cream [Clotrim 1 applic TOPICAL DIRECTED PRN 02/06/16 10/29/17 History Antifungal Cream] Levothyroxine Sodium [Synthroid] 125 mcg PO W/SUPPER 02/06/16 10/29/17 History cloNIDine HCL [Catapres] 0.1 mg PO BID 02/06/16 10/29/17 History Allopurinol [Zyloprim] 1 tab PO DAILY 09/22/17 10/29/17 History Furosemide [Lasix] 1 tab PO TID 09/22/17 10/29/17 History Insulin Lispro [humaLOG Kwikpen] See Protocol SQ DAILY 09/22/17 10/29/17 History Sodium Bicarbonate Tab 1 tab PO TID 09/22/17 10/29/17 History Hydrocodone/Acetaminophen [[place] 1 - 2 tab PO Q4HR PRN 10/29/17 10/29/17 History 5-325] Allergies Allergy/AdvReac Type Severity Reaction Status Date / Time No Known Allergies Allergy Verified 10/29/17 19:31 Surgical - Exam Vital Signs Temp Pulse Resp BP Pulse Ox 98.7 F 93 17 141/70 97 10/29/17 19:02 10/29/17 19:02 10/29/17 19:02 10/29/17 19:02 10/29/17 19:02 Physical exam: General: Well-developed, well-nourished HEENT: Normocephalic, sclerae nonicteric Abdomen: Erythema involving the right mid abdomen, slightly improved from yesterday, induration and warmth persist, tenderness persists, small opening at the superior aspect of his incision with no active drainage currently Extremities: No edema Neuro: Alert and oriented Results - Labs 10/30/17 08:56 10/30/17 08:56 Abnormal Lab Results - Last 24 Hours (Table) 10/29/17 10/29/17 10/29/17 Range/Units 19:30 19:30 19:50 RBC 3.52 L (4.30-5.90) m/uL Hgb 10.3 L (13.0-17.5) gm/dL Hct 30.0 L (39.0-53.0) % Lymphocytes # 0.6 L (1.0-4.8) k/uL Chloride 95 L (98-107) mmol/L BUN 95 H* (9-20) mg/dL Creatinine 4.52 H (0.66-1.25) mg/dL Glucose 265 H (74-99) mg/dL POC Glucose (mg/dL) (75-99) mg/dL AST 13 L (17-59) U/L Total Protein 6.2 L (6.3-8.2) g/dL Albumin (3.5-5.0) g/dL Urine Protein 1+ H (Negative) Urine Glucose (UA) 2+ H (Negative) Urine Blood Small H (Negative) Urine Mucus Rare H (None) /[facility] 10/29/17 10/30/17 10/30/17 Range/Units 22:01 06:59 08:56 RBC 3.41 L (4.30-5.90) m/uL Hgb 10.0 L (13.0-17.5) gm/dL Hct 29.1 L (39.0-53.0) % Lymphocytes # 0.7 L (1.0-4.8) k/uL Chloride (98-107) mmol/L BUN (9-20) mg/dL Creatinine (0.66-1.25) mg/dL Glucose (74-99) mg/dL POC Glucose (mg/dL) 272 H 182 H (75-99) mg/dL AST (17-59) U/L Total Protein (6.3-8.2) g/dL Albumin (3.5-5.0) g/dL Urine Protein (Negative) Urine Glucose (UA) (Negative) Urine Blood (Negative) Urine Mucus (None) /[facility] 10/30/17 10/30/17 Range/Units 08:56 11:47 RBC (4.30-5.90) m/uL Hgb (13.0-17.5) gm/dL Hct (39.0-53.0) % Lymphocytes # (1.0-4.8) k/uL Chloride (98-107) mmol/L BUN 86 H* (9-20) mg/dL Creatinine 3.95 H (0.66-1.25) mg/dL Glucose 180 H (74-99) mg/dL POC Glucose (mg/dL) 186 H (75-99) mg/dL AST 13 L (17-59) U/L Total Protein 5.6 L (6.3-8.2) g/dL Albumin 3.3 L (3.5-5.0) g/dL Urine Protein (Negative) Urine Glucose (UA) (Negative) Urine Blood (Negative) Urine Mucus (None) /hpf Microbiology - Last 24 Hours (Table) 10/29/17 19:50 Gram Stain - Preliminary Abdomen Wound Culture - Preliminary Diabetes panel 10/29/17 10/30/17 Range/Units 19:30 08:56 Sodium 137 141 (137-145) mmol/L Potassium 3.5 3.6 (3.5-5.1) mmol/L Chloride 95 L 103 (98-107) mmol/L Carbon Dioxide 25 24 (22-30) mmol/L BUN 95 H* 86 H* (9-20) mg/dL Creatinine 4.52 H 3.95 H (0.66-1.25) mg/dL Glucose 265 H 180 H (74-99) mg/dL Calcium 9.4 9.1 (8.4-10.2) mg/dL AST 13 L 13 L (17-59) U/L ALT 25 27 (21-72) U/L Alkaline Phosphatase 85 76 (38-126) U/L Total Protein 6.2 L 5.6 L (6.3-8.2) g/dL Albumin 3.8 3.3 L (3.5-5.0) g/dL Calcium panel 10/29/17 10/30/17 Range/Units 19:30 08:56 Calcium 9.4 9.1 (8.4-10.2) mg/dL Albumin 3.8 3.3 L (3.5-5.0) g/dL Pituitary panel 10/29/17 10/30/17 Range/Units 19:30 08:56 Sodium 137 141 (137-145) mmol/L Potassium 3.5 3.6 (3.5-5.1) mmol/L Chloride 95 L 103 (98-107) mmol/L Carbon Dioxide 25 24 (22-30) mmol/L BUN 95 H* 86 H* (9-20) mg/dL Creatinine 4.52 H 3.95 H (0.66-1.25) mg/dL Glucose 265 H 180 H (74-99) mg/dL Calcium 9.4 9.1 (8.4-10.2) mg/dL Adrenal panel 10/29/17 10/30/17 Range/Units 19:30 08:56 Sodium 137 141 (137-145) mmol/L Potassium 3.5 3.6 (3.5-5.1) mmol/L Chloride 95 L 103 (98-107) mmol/L Carbon Dioxide 25 24 (22-30) mmol/L BUN 95 H* 86 H* (9-20) mg/dL Creatinine 4.52 H 3.95 H (0.66-1.25) mg/dL Glucose 265 H 180 H (74-99) mg/dL Calcium 9.4 9.1 (8.4-10.2) mg/dL Total Bilirubin 0.3 0.2 (0.2-1.3) mg/dL AST 13 L 13 L (17-59) U/L ALT 25 27 (21-72) U/L Alkaline Phosphatase 85 76 (38-126) U/L Total Protein 6.2 L 5.6 L (6.3-8.2) g/dL Albumin 3.8 3.3 L (3.5-5.0) g/dL Assessment and Plan (1) Abdominal wall cellulitis Narrative/Plan: Will proceed with removal of the infected dialysis catheter. Continue broad- spectrum antibiotics. Risks of bleeding, infection, bone formation were discussed. He understands and wishes to proceed. I did make a phone call to nephrology to discuss this further and left a message on the voicemail. Current Visit: Yes Status: Acute Code(s): L03.311 - CELLULITIS OF ABDOMINAL WALL SNOMED Code(s): 37576312
[2017-10-30] MEDS ORDERED: fentaNYL (PF) 50 MCG/ML 2 ML AMP ONE (12:26)
[2017-10-30] MEDS ORDERED: MIDAZOLAM 2 MG/2 ML VIAL ONE (12:26)
[2017-10-30] MEDS ORDERED: PROPOFOL 10 MG/ML 20 ML VIAL IV ONE (12:26)
[2017-10-30] MEDS ORDERED: BUPIVACAINE (PF) 0.25% 30 ML VIAL SQ ONE (12:51)
--- NOTE | 2017-10-30 13:11 | P.OP ---
Date of Procedure: 10/30/17 Procedure(s) Performed: PREOPERATIVE DIAGNOSIS: Infected PD cath POSTOPERATIVE DIAGNOSIS: Same PROCEDURE: PD cath removal SURGEON: Cesar EBL: 2 mL ANESTHESIA: Sedation and local COMPLICATIONS: None OPERATIVE PROCEDURE: Patient was placed in the supine position. The abdomen was prepped and draped in usual sterile fashion. The previous paramedian incision was re-incised after localizing the skin. The subcutaneous tissues were divided using blunt dissection. Purulence was identified around the catheter extending down to the level of the fascia. I was able to remove the suture at the level of the fascia holding the catheter in place without difficulty. The catheter was then removed without difficulty. The wound was irrigated with saline. No further purulence was seen at that time. I did take a deep culture during the procedure. The incision was packed with curling moistened with saline and the catheter exit site was packed with a 1/2 inch iodophor gauze. Sterile dressings were applied. DISPOSITION: Stable to recovery room
[2017-10-30] MEDS: HYDROmorphone 2 MG/ML 1 ML SYRINGE IVP PRN ×2 (13:48→16:05)
--- NOTE | 2017-10-30 14:58 | CONS ---
CONSULTATION REASON FOR CONSULTATION: Renal failure. HISTORY OF PRESENT ILLNESS: The patient is a 67-year-old male with history of CKD stage IV to V secondary to diabetic nephropathy and nephrosclerosis. The patient is status post PD catheter placement by Dr. Guerrero. He was admitted to the hospital and is noticed to have significant edema in his abdomen 2 days ago as outpatient. He was started on Keflex and was scheduled to see Dr. Guerrero as outpatient yesterday. The patient was eventually admitted as there was evidence of pus from the exit site. An ultrasound done showed a collection at the exit site. There was no other abscesses or any other collections noted on the ultrasound. I discussed with Dr. Guerrero this morning and plan is to remove the PD catheter. The patient is maintained on antibiotics. He states the redness and pain has improved. However, he continues to have significant drainage from the exit site. The patient denied any fevers or chills. PAST MEDICAL HISTORY: CKD stage 5, type 2 diabetes, hypertension, hyperlipidemia, hypothyroidism, obstructive sleep apnea and gout. PAST SURGICAL HISTORY: Recent PD catheter placement. MEDICATIONS OUTPATIENT: Include amlodipine, clonidine, Allopurinol, Coreg, sodium bicarb, Lasix, Vitamin D, Synthroid, iron, Gemfibrozil, and aspirin, atorvastatin. PAST SURGICAL HISTORY: Left hip surgery, left hip and shoulder surgery, cholecystectomy. EXAMINATION: Patient is currently comfortable, awake. He is not in any acute distress. Blood pressure is 120/75, heart rate 87 per minute. He is afebrile. Examination of the heart S1, S2. Examination of the lungs bilateral breath sounds are heard. Abdomen is soft, nontender. ABDOMEN: Soft. No tenderness noted near the exit site and drainage noted from the exit site as well. Erythema was noted which seems to have decreased from 3 days ago. Examination of lower extremity shows no evidence of edema. PURIFICATION DIRECTOR exam is grossly intact. LAB: Shows sodium 141, potassium 3.6, hemoglobin 10.0. UA shows 1+ protein, glucose 2+, . ASSESSMENT: 1. Chronic kidney disease NKF Stage IV to V with the vague urinary symptoms as outpatient and therefore patient was started on dialysis. 2. Previous cellulitis and abscess formation near the exit site, maintained on antibiotics. The PD catheter will be discontinued. 3. Acute kidney injury secondary to infection, currently improved. 4. Chronic kidney disease, mineral bone disorder. 5. Hypertension currently controlled. 6. Diabetes maintained on insulin. PLAN: We will continue to avoid nephrotoxic agents. Continue current medications. Continue the antibiotics and we will be assessed regarding modality for renal replacement therapy down the road, we will need his abdomen a break and hopefully once he heals, we can plan for another PD catheter insertion versus hemodialysis. At this time, patient does not need urgent renal replacement therapy. I will discuss this further with him tomorrow. Thank you for this consultation. We will continue to follow the patient with you during his hospitalization. [id number] / IJN: [id number] /
[2017-10-30 16:24] LABS: Hemoglobin A1C 9.4 % (4.0-6.0)
[2017-10-30] MEDS: SODIUM CHLORIDE 0.9% 1,000 ML IV SCH (17:09)
[2017-10-30 17:10] LABS: Glucose,Whole Blood 161 mg/dL (75-99)
[2017-10-30] MEDS: amLODIPine 10 MG TAB PO SCH (17:39)
[2017-10-30] MEDS: ATORVASTATIN 40 MG TAB PO SCH (21:03)
[2017-10-30] MEDS: SENNOSIDES-DOCUSATE SODIUM 1 EACH TAB PO PRN (21:41)
[2017-10-30] MEDS: HYDROcodone/APAP 5-325MG 1 EACH TAB PO PRN (21:44)
[2017-10-30 23:00] LABS: Glucose,Whole Blood 319 mg/dL (75-99)
--- NOTE | 2017-10-30 23:27 | P.CON ---
Consult Note - . Consult date: 10/30/17 Assessment/Plan:: This is a 57-year-old male patient gives history that on September 22 he underwent cholecystectomy with Dr. Guerrero and following that on October 06 he had a CAPD catheter placed. 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 He has had diabetes for more than 20 years. His last hemoglobin A1c was 9.2 done last week as an outpatient. He does have an appointment with Dr. Vickie Siddiqi on November 10. Patient states that he has been going to the dialysis Center to learn how to do CAPD and on Friday he was therefore training and he noticed there was increased redness and swelling. He was sent to [facility] an ultrasound was done which he reports as negative. Patient was also placed on Keflex and initially the redness seemed to be a little bit better but she he continued to have hardness and swelling to the area. He denies having any nausea or vomiting. He did have 2 loose stools yesterday. Patient states the redness continued to worsen and then he developed drainage from around the catheter and felt fevers and chills but temperature was never over 100. Patient does make urine and denies any dysuria, flank pain. He denies any lower extremity edema. Patient was found to be afebrile with a white count of 7.3. BUN 95 and creatinine 4.52. Wound culture was obtained and in process with gram-positive cocci. Blood cultures as received. Patient was started on Rocephin and vancomycin and admitted to the hospital in the care of Dr. Guerrero. Please see the consult note is dictated by nurse practitioner Mrs. Katya Gardner. Patient to the operating today for incision and drainage of the significant abscess and likely removal of the CAPD catheter. The patient relates to his technique of caring for the catheter at home. He needs to discuss this protocol with the relay operator and the dialysis center. Unclear if he will need to transition to hemodialysis or we'll be able to have treatment for significant infection and then again have attempt for CAPD in the future. The evaluation, assessment and plan is dictated by nurse practitioner Mrs. Ktaya Gardner.
[2017-10-31] MEDS: SODIUM CHLORIDE 0.9% 1,000 ML IV SCH ×2 (05:33→17:27)
--- NOTE | 2017-10-31 07:21 | P.PN ---
Progress Note - Text The patient is a 57-year-old gentleman who has chronic kidney disease and last month had a peritoneal dialysis catheter placed. The patient presented to yesterday with the abdominal wall pain and swelling and erythema consistent with cellulitis. Apparently there was also some drainage around the catheter. The patient was admitted by surgery Dr. Guerrero and had the peritoneal catheter removed yesterday. The patient also has been seen by infectious disease Dr. Pineda and nephrology Dr. Uriostegui. This morning he is resting. Vital signs reveal temperature of 99.5 with a pulse around the 100 and respirations 18. Blood pressure was 151/81 and he was 94% saturated on room air. Discussed with nursing staff at bedside. Labs pending although blood sugar last evening was up to 319. Impressions and plans A wound culture from the showing presumptive staph aureus. Negative blood culture from that time. Cultures from the catheter tip are pending. Continue the present antibiotics as per infectious disease with vancomycin and ceftriaxone. Further recommendations pending final results and further clinical response. Continue with Accu-Cheks and coverage
[2017-10-31 07:34] LABS: Glucose,Whole Blood 190 mg/dL (75-99)
[2017-10-31] MEDS: INSULIN ASPART 100 UNIT/ML 1 ML 10 ML VIAL SQ SCH ×4 (07:54→21:49)
[2017-10-31] MEDS: cloNIDine HCL 0.1 MG TAB PO SCH ×2 (07:54→21:53)
[2017-10-31] MEDS: cefTRIAXone IN SWFI 1,000 MG/10 ML SYRINGE IVP SCH (07:54)
[2017-10-31 08:46] LABS: Calcium 9.1 mg/dL (8.4-10.2); Potassium 3.8 mmol/L (3.5-5.1)
[2017-10-31 12:39] LABS: Glucose,Whole Blood 278 mg/dL (75-99)
[2017-10-31] MEDS ORDERED: HYDROmorphone 0.5 MG/0.5 ML SYRINGE IVP PRN (16:13)
[2017-10-31] MEDS: amLODIPine 10 MG TAB PO SCH (17:26)
[2017-10-31 17:29] LABS: Glucose,Whole Blood 321 mg/dL (75-99)
[2017-10-31] MEDS: HYDROcodone/APAP 5-325MG 1 EACH TAB PO PRN (17:29)
--- NOTE | 2017-10-31 17:41 | PN ---
PROGRESS NOTE Patient is seen for followup for CKD, stage 5. Patient was admitted to the hospital with cellulitis and infection of his abdomen and cellulitis and exit site infection after placement of PD catheter. The PD catheter was removed yesterday. Fluid culture is growing gram-positive cocci resembling Staph. At this time he is stable from his renal function standpoint. Serum creatinine was 4.5 on initial admission. It is at 3.4 now. There is no evidence of volume overload, severe hyperkalemia, or acidosis, and the plan is to continue to monitor without renal replacement therapy for now. EXAMINATION: Blood pressure is 146/78, heart rate 83 per minute. He is afebrile. Examination of the heart S1, S2. Examination of the lungs bilateral breath sounds are heard. ABDOMEN: Soft. The exit site is currently dressed. The edema seems to have decreased. The tenderness is still present. Examination of lower extremities still shows no evidence of edema. LABS SHOW: Sodium 143, potassium 3.8, chloride 107, BUN 65, serum creatinine 3.43. ASSESSMENT: 1. 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 We will continue to monitor renal function for now. Decrease IV fluids. 2. Severe cellulitis and exit site infection status post removal of PD catheter which was placed on October 06. The fluid culture is growing presumptive Staph aureus. The patient is being followed by ID. He had received 1 dose of vancomycin. Currently, he remains on vancomycin, pharmacy to dose. 3. Hypertension, currently controlled. 4. Type 2 diabetes, maintained on insulin. 5. Metabolic acidosis. Maintained on oral sodium bicarb as outpatient, currently stable without sodium bicarb. PLAN: Decrease IV fluids. Continue antibiotics. No need for renal replacement therapy at this time. Patient will be closely followed as outpatient. MMODL / IJN: [id number] /
--- NOTE | 2017-10-31 18:11 | P.PN ---
Subjective Progress Note Date: 10/31/17 Principal diagnosis: Infected peritoneal dialysis catheter Patient says his pain is improved. No dressing change has been performed thus far. T-max 99.5. Creatinine today 3.43. Making good urine. Objective - Vital Signs Vital signs: Vital Signs Temp 99.0 F 10/31/17 15:00 Pulse 87 10/31/17 15:00 Resp 17 10/31/17 15:00 BP 170/82 10/31/17 15:00 Pulse Ox 96 10/31/17 15:00 Intake & Output 10/30/17 10/31/17 10/31/17 18:59 06:59 18:59 Intake Total 250 240 Output Total 5 Balance 245 240 Weight 102 kg Intake: IV 250 Oral 240 Output: Estimated Blood Loss 5 Other: # Voids 2 2 2 # Bowel Movements 0 - Exam Abdomen: Soft, nondistended, mild tenderness, erythema decreased, wound clean - Labs CBC & Chem 7: 10/30/17 08:56 10/31/17 07:59 Labs: Abnormal Lab Results - Last 24 Hours (Table) 10/30/17 10/30/17 10/31/17 Range/Units 08:56 22:57 07:21 BUN (9-20) mg/dL Creatinine (0.66-1.25) mg/dL Glucose (74-99) mg/dL POC Glucose (mg/dL) 319 H 190 H (75-99) mg/dL Hemoglobin A1c 9.4 H (4.0-6.0) % 10/31/17 10/31/17 10/31/17 Range/Units 07:59 12:33 17:09 BUN 65 H (9-20) mg/dL Creatinine 3.43 H (0.66-1.25) mg/dL Glucose 202 H (74-99) mg/dL POC Glucose (mg/dL) 278 H 321 H (75-99) mg/dL Hemoglobin A1c (4.0-6.0) % Microbiology - Last 24 Hours (Table) 10/29/17 19:50 Gram Stain - Final Abdomen Wound Culture - Final Staphylococcus aureus 10/30/17 12:57 Gram Stain - Preliminary Catheter Tip Wound Culture - Preliminary 10/30/17 12:57 Anaerobic Culture - Preliminary Catheter Tip 10/29/17 19:30 Blood Culture - Preliminary Blood No Growth after 24 hours Assessment and Plan (1) Abdominal wall cellulitis Narrative/Plan: (Dressing changes this evening after showering. Monitor urine output. Repeat labs tomorrow. Continue IV antibiotics. Possible discharge tomorrow or Friday with outpatient wound care. Current Visit: Yes Status: Acute Code(s): L03.311 - CELLULITIS OF ABDOMINAL WALL SNOMED Code(s): 71478241
[2017-10-31] MEDS: SENNOSIDES-DOCUSATE SODIUM 1 EACH TAB PO PRN (18:47)
[2017-10-31 20:48] LABS: Glucose,Whole Blood 262 mg/dL (75-99)
[2017-10-31] MEDS ORDERED: INSULIN DETEMIR 100 UNIT/ML 10 ML VIAL SQ SCH (21:00)
[2017-10-31] MEDS: ATORVASTATIN 40 MG TAB PO SCH (21:53)
[2017-10-31] MEDS: ACETAMINOPHEN TAB 325 MG TAB PO PRN (22:00)
--- NOTE | 2017-10-31 22:47 | P.PN ---
Subjective Progress Note Date: 10/31/17 Principal diagnosis: Abdominal wall abscess This is a 57-year-old male patient gives history that on September 22 he underwent cholecystectomy with Dr. Guerrero and following that on October 06 he had a CAPD catheter placed. 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 He has had diabetes for more than 20 years. His last hemoglobin A1c was 9.2 done last week as an outpatient. He does have an appointment with Dr. Vickie Siddiqi on November 10. Patient states that he has been going to the dialysis Center to learn how to do CAPD and on Friday he was therefore training and he noticed there was increased redness and swelling. He was sent to [facility] an ultrasound was done which he reports as negative. Patient was also placed on Keflex and initially the redness seemed to be a little bit better but she he continued to have hardness and swelling to the area. He denies having any nausea or vomiting. He did have 2 loose stools yesterday. Patient states the redness continued to worsen and then he developed drainage from around the catheter and felt fevers and chills but temperature was never over 100. Patient does make urine and denies any dysuria, flank pain. He denies any lower extremity edema. Patient was found to be afebrile with a white count of 7.3. BUN 95 and creatinine 4.52. Wound culture was obtained and in process with gram-positive cocci. Blood cultures as received. Patient was started on Rocephin and vancomycin and cultures are now showing evidence of staph aureus. Objective - Vital Signs Vital signs: Vital Signs Temp 99.0 F 10/31/17 15:00 Pulse 87 10/31/17 15:00 Resp 17 10/31/17 15:00 BP 170/82 10/31/17 15:00 Pulse Ox 96 10/31/17 15:00 Intake & Output 10/31/17 10/31/17 11/01/17 06:59 18:59 06:59 Intake Total 240 Balance 240 Weight 102 kg Intake: Oral 240 Other: # Voids 2 2 1 # Bowel Movements 0 - Exam Gen: This is a 57-year-old obese male. He is sitting up in bed and appears to be in no acute distress. HEENT: Head is atraumatic, normocephalic. Pupils equal, round. Sclerae is anicteric. Conjunctiva pink. Mucous members of the mouth are somewhat dry. Dentition is in fair order. No thrush noted. NECK: Short and thick. Supple. No JVD. No lymphadenopathy. No thyromegaly. LUNGS: Clear to auscultation. No wheezes or rhonchi. No intercostal retractions. HEART: Irregular rate and rhythm. No murmur. ABDOMEN: Soft. Bowel sounds are present. There is redness, edema across lower abdomen. CAPD catheter right of umbilicus with puncture wound between the CAPD catheter has been removed in the abscess has been drained. It is packed with Aquacel Silver. Large moderately bloody serous drainage at this time. The redness of the abdominal wall is improved. It is less tender. EXTREMITIES: No pedal edema. No calf tenderness. Dorsalis pedis +2 bilaterally. NEUROLOGICAL: Patient is awake, alert and oriented x3. - Labs CBC & Chem 7: 10/30/17 08:56 10/31/17 07:59 Labs: Abnormal Lab Results - Last 24 Hours (Table) 10/30/17 10/30/17 10/31/17 Range/Units 08:56 22:57 07:21 BUN (9-20) mg/dL Creatinine (0.66-1.25) mg/dL Glucose (74-99) mg/dL POC Glucose (mg/dL) 319 H 190 H (75-99) mg/dL Hemoglobin A1c 9.4 H (4.0-6.0) % 10/31/17 10/31/17 10/31/17 Range/Units 07:59 12:33 17:09 BUN 65 H (9-20) mg/dL Creatinine 3.43 H (0.66-1.25) mg/dL Glucose 202 H (74-99) mg/dL POC Glucose (mg/dL) 278 H 321 H (75-99) mg/dL Hemoglobin A1c (4.0-6.0) % 10/31/17 Range/Units 20:46 BUN (9-20) mg/dL Creatinine (0.66-1.25) mg/dL Glucose (74-99) mg/dL POC Glucose (mg/dL) 262 H (75-99) mg/dL Hemoglobin A1c (4.0-6.0) % Microbiology - Last 24 Hours (Table) 10/29/17 19:30 Blood Culture - Preliminary Blood No Growth after 48 hours 10/30/17 12:57 Gram Stain - Preliminary Catheter Tip Wound Culture - Preliminary Presumptive Staph aureus 10/29/17 19:50 Gram Stain - Final Abdomen Wound Culture - Final Staphylococcus aureus 10/30/17 12:57 Anaerobic Culture - Preliminary Catheter Tip Laboratory Results WBC 5.5 k/uL (3.8-10.6) 10/30/17 08:56 RBC 3.41 m/uL (4.30-5.90) L 10/30/17 08:56 Hgb 10.0 gm/dL (13.0-17.5) L 10/30/17 08:56 Hct 29.1 % (39.0-53.0) L 10/30/17 08:56 MCV 85.4 fL (80.0-100.0) 10/30/17 08:56 MCH 29.3 pg (25.0-35.0) 10/30/17 08:56 MCHC 34.3 g/dL (31.0-37.0) 10/30/17 08:56 RDW 12.8 % (11.5-15.5) 10/30/17 08:56 Plt Count 190 k/uL (150-450) 10/30/17 08:56 Neutrophils % 72 % 10/30/17 08:56 Lymphocytes % 13 % 10/30/17 08:56 Monocytes % 8 % 10/30/17 08:56 Eosinophils % 5 % 10/30/17 08:56 Basophils % 1 % 10/30/17 08:56 Neutrophils # 4.0 k/uL (1.3-7.7) 10/30/17 08:56 Lymphocytes # 0.7 k/uL (1.0-4.8) L 10/30/17 08:56 Monocytes # 0.4 k/uL (0-1.0) 10/30/17 08:56 Eosinophils # 0.3 k/uL (0-0.7) 10/30/17 08:56 Basophils # 0.0 k/uL (0-0.2) 10/30/17 08:56 PT 9.9 sec (9.0-12.0) 10/29/17 19:30 INR 1.0 (<1.2) 10/29/17 19:30 APTT 22.8 sec (22.0-30.0) 10/29/17 19:30 Sodium 143 mmol/L (137-145) 10/31/17 07:59 Potassium 3.8 mmol/L (3.5-5.1) 10/31/17 07:59 Chloride 107 mmol/L (98-107) 10/31/17 07:59 Carbon Dioxide 22 mmol/L (22-30) 10/31/17 07:59 Anion Gap 14 mmol/L 10/31/17 07:59 BUN 65 mg/dL (9-20) H 10/31/17 07:59 Creatinine 3.43 mg/dL (0.66-1.25) H 10/31/17 07:59 Est GFR (MDRD) Af Amer 23 (>60 ml/min/1.73 sqM) 10/31/17 07:59 Est GFR (MDRD) Non-Af 19 (>60 ml/min/1.73 sqM) 10/31/17 07:59 Glucose 202 mg/dL (74-99) H 10/31/17 07:59 POC Glucose (mg/dL) 262 mg/dL (75-99) H 10/31/17 20:46 POC Glu [employer] Viola Kyle 10/31/17 20:[address] Glu mg/dL 223 10/30/17 08:56 Hemoglobin A1c 9.4 % (4.0-6.0) H 10/30/17 08:56 Plasma Lactic Acid Johnny 1.0 mmol/L (0.7-2.0) 10/29/17 19:30 Calcium 9.1 mg/dL (8.4-10.2) 10/31/17 07:59 Total Bilirubin 0.2 mg/dL (0.2-1.3) 10/30/17 08:56 AST 13 U/L (17-59) L 10/30/17 08:56 ALT 27 U/L (21-72) 10/30/17 08:56 Alkaline Phosphatase 76 U/L (38-126) 10/30/17 08:56 Total Protein 5.6 g/dL (6.3-8.2) L 10/30/17 08:56 Albumin 3.3 g/dL (3.5-5.0) L 10/30/17 08:56 Urine Color Light Yellow 10/29/17 19:50 Urine Appearance Clear (Clear) 10/29/17 19:50 Urine pH 5.5 (5.0-8.0) 10/29/17 19:50 Ur Specific [place] 1.010 (1.001-1.035) 10/29/17 19:50 Urine Protein 1+ (Negative) H 10/29/17 19:50 Urine Glucose (UA) 2+ (Negative) H 10/29/17 19:50 Urine Ketones Negative (Negative) 10/29/17 19:50 Urine Blood Small (Negative) H 10/29/17 19:50 Urine Nitrite Negative (Negative) 10/29/17 19:50 Urine Bilirubin Negative (Negative) 10/29/17 19:50 Urine Urobilinogen <2.0 mg/dL (<2.0) 10/29/17 19:50 Ur Leukocyte Esterase Negative (Negative) 10/29/17 19:50 Urine RBC 1 /hpf (0-5) 10/29/17 19:50 Urine WBC 2 /hpf (0-5) 10/29/17 19:50 Urine Mucus Rare /hpf (None) H 10/29/17 19:50 Microbiology 10/29/17 19:30 Blood Blood Culture - Preliminary No Growth after 48 hours 10/30/17 12:57 Catheter Tip Gram Stain - Preliminary 10/30/17 12:57 Catheter Tip Wound Culture - Preliminary Presumptive Staph aureus 10/29/17 19:50 Abdomen Gram Stain - Final 10/29/17 19:50 Abdomen Wound Culture - Final Staphylococcus aureus 10/30/17 12:57 Catheter Tip Anaerobic Culture - Preliminary Assessment and Plan (1) End-stage renal disease on peritoneal dialysis Current Visit: Yes Status: Acute Code(s): N18.6 - END STAGE RENAL DISEASE; Z99.2 - DEPENDENCE ON RENAL DIALYSIS SNOMED Code(s): 46155605 (2) Abdominal wall abscess at site of surgical wound Narrative/Plan: 57-year-old male presents to Hospital with significant pain and swelling of his abdominal wall. He is status post the CAPD catheter placement. He will discuss with the brass pourer the care of the site. The patient developed a significant abscess is is now been incised and drained in the CAPD catheter is been removed. Culture this time is showing evidence of MSSA. He is doing relatively well. He will follow the brass pourer as far as the plan for dialysis. There is a potential for transitioning to a oral cephalosporin to complete the treatment for the MSSA infection given there is evidence of negative blood cultures. Patient is feeling better. Eating quite well. We'll need to have a dialysis plan in place at his discharge. Current Visit: Yes Status: Acute Code(s): T81.4XXA - INFECTION FOLLOWING A PROCEDURE, INITIAL ENCOUNTER SNOMED Code(s): 36155066
[2017-11-01 07:33] LABS: Glucose,Whole Blood 177 mg/dL (75-99)
[2017-11-01] MEDS: cloNIDine HCL 0.1 MG TAB PO SCH (07:46)
[2017-11-01] MEDS: cefTRIAXone IN SWFI 1,000 MG/10 ML SYRINGE IVP SCH (07:46)
[2017-11-01] MEDS: INSULIN ASPART 100 UNIT/ML 1 ML 10 ML VIAL SQ SCH ×2 (07:46→12:54)
[2017-11-01 07:54] VITALS: BP 146/84; PULSE 77; RESP 18; TEMP 98
[2017-11-01 08:28] LABS: Calcium 8.9 mg/dL (8.4-10.2); Potassium 4.1 mmol/L (3.5-5.1)
[2017-11-01 08:33] LABS: Vancomycin,Random 13.3 ug/mL
--- NOTE | 2017-11-01 11:25 | P.PN ---
Subjective Progress Note Date: 11/01/17 Principal diagnosis: This is a 57-year-old diabetic with CK stage V who had the CAPD catheter placed in September. After completing training, he started to do is on dialysis and had exit site infection. He was brought and the PD catheter has been taken out. He is feeling much better. He has a large dressing on the own. No chest pain shortness of breath good appetite no fever chills no abdominal pain He is able to walk and eat and has no significant complaints at all. There is no history of peritonitis. This is an exit site infection for which the PD catheter has been taken out. His creatinine is very stable and has no symptoms of uremia and therefore the no need for renal replacement therapy urgently. Objective - Vital Signs Vital signs: Vital Signs Temp 98.0 F 11/01/17 07:00 Pulse 77 11/01/17 07:00 Resp 18 11/01/17 07:00 BP 146/84 11/01/17 07:00 Pulse Ox 97 11/01/17 07:00 Intake & Output 10/31/17 11/01/17 11/01/17 18:59 06:59 18:59 Intake Total 240 120 Balance 240 120 Weight 102 kg Intake: Oral 240 120 Other: # Voids 2 2 # Bowel Movements 0 0 Exams and awake alert oriented comfortable HEENT exam no JVP neck is supple no facial asymmetry Lungs are clear to auscultation percussion good air entry bilaterally. Heart sounds are unremarkable no murmur rub gallop Abdomen soft nontender there's a large dressing on his CAPD catheter removal site. Extremity exam was no edema Neurologically awake alert oriented. No asterixis. - Labs CBC & Chem 7: 10/30/17 08:56 11/01/17 07:43 Labs: Abnormal Lab Results - Last 24 Hours (Table) 10/31/17 10/31/17 10/31/17 Range/Units 12:33 17:09 20:46 Chloride (98-107) mmol/L BUN (9-20) mg/dL Creatinine (0.66-1.25) mg/dL Glucose (74-99) mg/dL POC Glucose (mg/dL) 278 H 321 H 262 H (75-99) mg/dL 11/01/17 11/01/17 Range/Units 07:12 07:43 Chloride 109 H (98-107) mmol/L BUN 52 H (9-20) mg/dL Creatinine 3.20 H (0.66-1.25) mg/dL Glucose 172 H (74-99) mg/dL POC Glucose (mg/dL) 177 H (75-99) mg/dL Microbiology - Last 24 Hours (Table) 10/29/17 19:30 Blood Culture - Preliminary Blood No Growth after 48 hours 10/30/17 12:57 Gram Stain - Preliminary Catheter Tip Wound Culture - Preliminary Presumptive Staph aureus 10/29/17 19:50 Gram Stain - Final Abdomen Wound Culture - Final Staphylococcus aureus Assessment and Plan Assessment: 1. Chronic kidney cysts disease stage V diabetic nephropathy. Stable off off dialysis. Patient was on CAPD for a few days in September 2017 last month had exit site infection in the catheter has been removed 10/30/2017 2 days ago. 2. Diabetic nephropathy stage V. Creatinine is 3.2. Normal electrolytes with bicarb 22 slightly low. 3. Exit site infection status post removal of peritoneal dialysis catheter. Recommendation. . Patient can be discharged to be followed up closely in the office. He'll need some antibiotics to cover his exit site infection. There is no indication for urgent dialysis
--- NOTE | 2017-11-01 11:44 | P.DS ---
Providers Date of admission: 10/29/17 20:10 Expected date of discharge: 11/01/17 Attending physician: Jasson Guerrero Consults: 10/29/17 20:09 Consult Physician Stat Consulting Provider: Melvin Pineda Consult Reason/Comments: Abdominal wall cellulitis Do you want consulting provider notified?: Yes Consult Physician Stat Consulting Provider: Manoj Flores Consult Reason/Comments: Abdominal wall cellulitis Do you want consulting provider notified?: Yes 10/29/17 20:12 Consult Physician Stat Consulting Provider: Kristel Uriostegui Consult Reason/Comments: Peritoneal dialysis Do you want consulting provider notified?: Yes Primary care physician: Manoj Flores - Discharge Diagnosis(es) (1) Abdominal wall cellulitis Patient was admitted 2 days ago with an infected dialysis catheter. This was removed at that time. Postoperatively the patient has done well. Renal function has been stable. Wounds had been dressed and appear to be improving. Abdominal wall cellulitis and tenderness improving as well. He is anxious to go home. Outpatient evaluation by nephrology is advised. Home care will be arranged. Plan discharge today. Patient will follow-up with me in 1 week. Current Visit: Yes Status: Acute Patient Condition at Discharge: Stable Plan - Discharge Summary Discharge Rx Participant: Yes New Discharge Prescriptions: No Action Iron 45 mg PO DAILY Gemfibrozil [Lopid] 600 mg PO BID Aspirin 81 mg PO DAILY amLODIPine [Norvasc] 10 mg PO W/SUPPER cloNIDine HCL [Catapres] 0.1 mg PO BID Levothyroxine Sodium [Synthroid] 125 mcg PO W/SUPPER Cholecalciferol [Vitamin D3] 2,000 unit PO DAILY Atorvastatin [Lipitor] 40 mg PO HS Clotrimazole Cream [Clotrim Antifungal Cream] 1 applic TOPICAL DIRECTED PRN PRN Reason: Rash Sodium Bicarbonate Tab 1 tab PO TID Furosemide [Lasix] 1 tab PO TID Allopurinol [Zyloprim] 1 tab PO DAILY Insulin Lispro [humaLOG Kwikpen] See Protocol SQ DAILY Hydrocodone/Acetaminophen [[place] 5-325] 1 - 2 tab PO Q4HR PRN PRN Reason: pain Discharge Medication List Aspirin 81 mg PO DAILY 03/01/14 [History] Gemfibrozil [Lopid] 600 mg PO BID 03/01/14 [History] Iron 45 mg PO DAILY 03/01/14 [History] amLODIPine [Norvasc] 10 mg PO W/SUPPER 03/01/14 [History] Atorvastatin [Lipitor] 40 mg PO HS 02/06/16 [History] Cholecalciferol [Vitamin D3] 2,000 unit PO DAILY 02/06/16 [History] Clotrimazole Cream [Clotrim Antifungal Cream] 1 applic TOPICAL DIRECTED PRN 02/06/16 [History] Levothyroxine Sodium [Synthroid] 125 mcg PO W/SUPPER 02/06/16 [History] cloNIDine HCL [Catapres] 0.1 mg PO BID 02/06/16 [History] Allopurinol [Zyloprim] 1 tab PO DAILY 09/22/17 [History] Furosemide [Lasix] 1 tab PO TID 09/22/17 [History] Insulin Lispro [humaLOG Kwikpen] See Protocol SQ DAILY 09/22/17 [History] Sodium Bicarbonate Tab 1 tab PO TID 09/22/17 [History] Hydrocodone/Acetaminophen [[place] 5-325] 1 - 2 tab PO Q4HR PRN 10/29/17 [History] Follow up Appointment(s)/Referral(s): [facility], [NON-STAFF] - Manoj Flores MD [Primary Care Provider] - 1-2 days Jasson Guerrero MD [Medical Doctor] - 1 Week
[2017-11-01] MEDS: SODIUM CHLORIDE 0.9% 1,000 ML IV SCH (12:04)
--- NOTE | 2017-11-01 12:51 | P.PN ---
Progress Note - Text The patient is a 57-year-old gentleman who has chronic kidney disease and developed a infection of his newly placed peritoneal dialysis catheter. Patient has been on antibiotics here and the catheter has been removed and his abdominal wall cellulitis has been improving. This morning is sitting up at the side of the bed eating his lunch. His is present. Vital signs reveals temperature 98.0 with a pulse of 77 respirations 18. Blood pressure 146/84 and he is 97% saturated on room air. Lung and heart exam was clear and regular. Abdominal wall erythema has markedly improved. Wound cultures did grow out a staph aureus which appears to be sensitive. Impressions and plans We did discuss with the patient and regarding blood sugar control. He does have an appointment soon with a living nurse and will continue on his present insulin and medications upon discharge. If he needs any assistance with this he is to call our office next week. Also keep his regularly scheduled appointments.
[2017-11-01 12:58] LABS: Glucose,Whole Blood 210 mg/dL (75-99)
--- NOTE | 2017-11-01 21:17 | P.PN ---
Subjective Progress Note Date: 11/01/17 Principal diagnosis: Abdominal wall abscess This is a 57-year-old male patient gives history that on September 22 he underwent cholecystectomy with Dr. Guerrero and following that on October 06 he had a CAPD catheter placed. 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 He has had diabetes for more than 20 years. His last hemoglobin A1c was 9.2 done last week as an outpatient. He does have an appointment with Dr. Vickie Siddiqi on November 10. Patient states that he has been going to the dialysis Center to learn how to do CAPD and on Friday he was therefore training and he noticed there was increased redness and swelling. He was sent to [facility] an ultrasound was done which he reports as negative. Patient was also placed on Keflex and initially the redness seemed to be a little bit better but she he continued to have hardness and swelling to the area. He denies having any nausea or vomiting. He did have 2 loose stools yesterday. Patient states the redness continued to worsen and then he developed drainage from around the catheter and felt fevers and chills but temperature was never over 100. Patient does make urine and denies any dysuria, flank pain. He denies any lower extremity edema. Patient was found to be afebrile with a white count of 7.3. BUN 95 and creatinine 4.52. Wound culture was obtained and in process with gram-positive cocci. Blood cultures remain negative. Patient was started on Rocephin and vancomycin cultures finalized with MSSA and the vancomycin was discontinued. Objective - Vital Signs Vital signs: Vital Signs Temp 98.0 F 11/01/17 07:00 Pulse 77 11/01/17 07:00 Resp 18 11/01/17 07:00 BP 146/84 11/01/17 07:00 Pulse Ox 97 11/01/17 07:00 Intake & Output 11/01/17 11/01/17 11/02/17 06:59 18:59 06:59 Intake Total 360 Balance 360 Intake: Oral 360 Other: # Voids 2 2 # Bowel Movements 0 - Exam Gen: This is a 57-year-old obese male. He is sitting up in bed and appears to be in no acute distress. HEENT: Head is atraumatic, normocephalic. Pupils equal, round. Sclerae is anicteric. Conjunctiva pink. Mucous members of the mouth are somewhat dry. Dentition is in fair order. No thrush noted. NECK: Short and thick. Supple. No JVD. No lymphadenopathy. No thyromegaly. LUNGS: Clear to auscultation. No wheezes or rhonchi. No intercostal retractions. HEART: Irregular rate and rhythm. No murmur. ABDOMEN: Soft. Bowel sounds are present. There is redness, edema across lower abdomen. CAPD catheter right of umbilicus with puncture wound between the CAPD catheter has been removed in the abscess has been drained. It is packed with Aquacel Silver. Large moderately bloody serous drainage at this time. The redness of the abdominal wall is improved. It is less tender. EXTREMITIES: No pedal edema. No calf tenderness. Dorsalis pedis +2 bilaterally. NEUROLOGICAL: Patient is awake, alert and oriented x3. - Labs CBC & Chem 7: 10/30/17 08:56 11/01/17 07:43 Labs: Abnormal Lab Results - Last 24 Hours (Table) 11/01/17 11/01/17 11/01/17 Range/Units 07:12 07:43 12:46 Chloride 109 H (98-107) mmol/L BUN 52 H (9-20) mg/dL Creatinine 3.20 H (0.66-1.25) mg/dL Glucose 172 H (74-99) mg/dL POC Glucose (mg/dL) 177 H 210 H (75-99) mg/dL Microbiology - Last 24 Hours (Table) 10/29/17 19:30 Blood Culture - Preliminary Blood No Growth after 48 hours 10/30/17 12:57 Gram Stain - Preliminary Catheter Tip Wound Culture - Preliminary Presumptive Staph aureus 10/29/17 19:50 Gram Stain - Final Abdomen Wound Culture - Final Staphylococcus aureus Laboratory Results WBC 5.5 k/uL (3.8-10.6) 10/30/17 08:56 RBC 3.41 m/uL (4.30-5.90) L 10/30/17 08:56 Hgb 10.0 gm/dL (13.0-17.5) L 10/30/17 08:56 Hct 29.1 % (39.0-53.0) L 10/30/17 08:56 MCV 85.4 fL (80.0-100.0) 10/30/17 08:56 MCH 29.3 pg (25.0-35.0) 10/30/17 08:56 MCHC 34.3 g/dL (31.0-37.0) 10/30/17 08:56 RDW 12.8 % (11.5-15.5) 10/30/17 08:56 Plt Count 190 k/uL (150-450) 10/30/17 08:56 Neutrophils % 72 % 10/30/17 08:56 Lymphocytes % 13 % 10/30/17 08:56 Monocytes % 8 % 10/30/17 08:56 Eosinophils % 5 % 10/30/17 08:56 Basophils % 1 % 10/30/17 08:56 Neutrophils # 4.0 k/uL (1.3-7.7) 10/30/17 08:56 Lymphocytes # 0.7 k/uL (1.0-4.8) L 10/30/17 08:56 Monocytes # 0.4 k/uL (0-1.0) 10/30/17 08:56 Eosinophils # 0.3 k/uL (0-0.7) 10/30/17 08:56 Basophils # 0.0 k/uL (0-0.2) 10/30/17 08:56 PT 9.9 sec (9.0-12.0) 10/29/17 19:30 INR 1.0 (<1.2) 10/29/17 19:30 APTT 22.8 sec (22.0-30.0) 10/29/17 19:30 Sodium 142 mmol/L (137-145) 11/01/17 07:43 Potassium 4.1 mmol/L (3.5-5.1) 11/01/17 07:43 Chloride 109 mmol/L (98-107) H 11/01/17 07:43 Carbon Dioxide 22 mmol/L (22-30) 11/01/17 07:43 Anion Gap 11 mmol/L 11/01/17 07:43 BUN 52 mg/dL (9-20) H 11/01/17 07:43 Creatinine 3.20 mg/dL (0.66-1.25) H 11/01/17 07:43 Est GFR (MDRD) Af Amer 25 (>60 ml/min/1.73 sqM) 11/01/17 07:43 Est GFR (MDRD) Non-Af 20 (>60 ml/min/1.73 sqM) 11/01/17 07:43 Glucose 172 mg/dL (74-99) H 11/01/17 07:43 POC Glucose (mg/dL) 210 mg/dL (75-99) H 11/01/17 12:46 POC Glu Car Carder ID Yoalnda Duong 11/01/17 12:[address] Glu mg/dL 223 10/30/17 08:56 Hemoglobin A1c 9.4 % (4.0-6.0) H 10/30/17 08:56 Plasma Lactic Acid Johnny 1.0 mmol/L (0.7-2.0) 10/29/17 19:30 Calcium 8.9 mg/dL (8.4-10.2) 11/01/17 07:43 Total Bilirubin 0.2 mg/dL (0.2-1.3) 10/30/17 08:56 AST 13 U/L (17-59) L 10/30/17 08:56 ALT 27 U/L (21-72) 10/30/17 08:56 Alkaline Phosphatase 76 U/L (38-126) 10/30/17 08:56 Total Protein 5.6 g/dL (6.3-8.2) L 10/30/17 08:56 Albumin 3.3 g/dL (3.5-5.0) L 10/30/17 08:56 Urine Color Light Yellow 10/29/17 19:50 Urine Appearance Clear (Clear) 10/29/17 19:50 Urine pH 5.5 (5.0-8.0) 10/29/17 19:50 Ur Specific [place] 1.010 (1.001-1.035) 10/29/17 19:50 Urine Protein 1+ (Negative) H 10/29/17 19:50 Urine Glucose (UA) 2+ (Negative) H 10/29/17 19:50 Urine Ketones Negative (Negative) 10/29/17 19:50 Urine Blood Small (Negative) H 10/29/17 19:50 Urine Nitrite Negative (Negative) 10/29/17 19:50 Urine Bilirubin Negative (Negative) 10/29/17 19:50 Urine Urobilinogen <2.0 mg/dL (<2.0) 10/29/17 19:50 Ur Leukocyte Esterase Negative (Negative) 10/29/17 19:50 Urine RBC 1 /hpf (0-5) 10/29/17 19:50 Urine WBC 2 /hpf (0-5) 10/29/17 19:50 Urine Mucus Rare /hpf (None) H 10/29/17 19:50 Random Vancomycin 13.3 ug/mL 11/01/17 07:43 Microbiology 10/29/17 19:30 Blood Blood Culture - Preliminary No Growth after 48 hours 10/30/17 12:57 Catheter Tip Gram Stain - Preliminary 10/30/17 12:57 Catheter Tip Wound Culture - Preliminary Presumptive Staph aureus 10/29/17 19:50 Abdomen Gram Stain - Final 10/29/17 19:50 Abdomen Wound Culture - Final Staphylococcus aureus 10/30/17 12:57 Catheter Tip Anaerobic Culture - Preliminary Assessment and Plan (1) End-stage renal disease on peritoneal dialysis Status: Acute Code(s): N18.6 - END STAGE RENAL DISEASE; Z99.2 - DEPENDENCE ON RENAL DIALYSIS SNOMED Code(s): 60798776 (2) Abdominal wall abscess at site of surgical wound Narrative/Plan: 57-year-old male presents to Hospital with significant pain and swelling of his abdominal wall. He is status post the CAPD catheter placement. He will discuss with the replanting machine operator the care of the site. The patient developed a significant abscess is is now been incised and drained in the CAPD catheter is been removed. Culture this time is showing evidence of MSSA. He is doing relatively well. He will follow the replanting machine operator as far as the plan for dialysis. Patient is feeling better. Eating quite well. It is time he is improving and is ready for discharge to home. Blood cultures are negative. Wound culture only with MSSA. Evidence of any peritoneal infection. Constantly oral Duricef 500 mg daily is sent to his pharmacy. He will follow up with the dialysis center to determine what his next best plans are. He'll follow with the surgeon and happy to see him in the outpatient clinic if needed. Status: Acute Code(s): T81.4XXA - INFECTION FOLLOWING A PROCEDURE, INITIAL ENCOUNTER SNOMED Code(s): 25820679
== END 2017-11-01 14:59 | disposition home health service (06) | DRG 981 ==
LOC: EC 18:52 → 4MS4W 20:10
PROVIDERS: ADMIT Surgery; ATTEND Surgery
PROC: 0WPG03Z Removal of Infusion Device from Peritoneal Cavity, Open Approach (ICD-10-PCS; principal; 2017-10-30 11:10)
DX: T85.71XA Infection and inflammatory reaction due to peritoneal dialysis catheter, initial encounter (principal); N18.6 End stage renal disease; Z76.82 Awaiting organ transplant status; N17.9 Acute kidney failure, unspecified; E11.21 Type 2 diabetes mellitus with diabetic nephropathy; I12.0 Hypertensive chronic kidney disease with stage 5 chronic kidney disease or end stage renal disease; E87.2 Acidosis; L03.311 Cellulitis of abdominal wall; L02.211 Cutaneous abscess of abdominal wall; E03.9 Hypothyroidism, unspecified; E11.22 Type 2 diabetes mellitus with diabetic chronic kidney disease; E66.9 Obesity, unspecified; E78.5 Hyperlipidemia, unspecified; G47.30 Sleep apnea, unspecified; K21.9 Gastro-esophageal reflux disease without esophagitis; K76.0 Fatty (change of) liver, not elsewhere classified; M10.9 Gout, unspecified; M89.9 Disorder of bone, unspecified; N28.1 Cyst of kidney, acquired; Y83.8 Other surgical procedures as the cause of abnormal reaction of the patient, or of later complication, without mention of misadventure at the time of the procedure; Z79.4 Long term (current) use of insulin; Z79.82 Long term (current) use of aspirin; Z79.899 Other long term (current) drug therapy; Z80.1 Family history of malignant neoplasm of trachea, bronchus and lung; Z83.3 Family history of diabetes mellitus; Z99.2 Dependence on renal dialysis; B95.7 Other staphylococcus as the cause of diseases classified elsewhere
CPT/HCPCS: 36415; 80048; 80053; 80202; 81001; 83036; 83605; 85025; 85610; 85730; 87040; 87070; 87075; 87077; 87186; 87205; 96365; 96366; 96375; 99284

== ENCOUNTER → 2018-01-05 | Outpatient (CLI) | payer BC, MEDICARE ==
[2018-01-05 10:31] LABS: Basophils % (A) 1 %; Eosinophils # (A) 0.2 k/uL (0-0.7); Eosinophils % (A) 4 %; HCT 35.9 % (39.0-53.0); HGB 12.7 gm/dL (13.0-17.5); Lymphocytes # (A) 0.9 k/uL (1.0-4.8); Lymphocytes % (A) 17 %; MCH 29.5 pg (25.0-35.0); MCHC 35.3 g/dL (31.0-37.0); MCV 83.4 fL (80.0-100.0); Mean Platelet Volume 7.5; Monocytes # (A) 0.3 k/uL (0-1.0); Monocytes % (A) 5 %; Neutrophils # (A) 3.6 k/uL (1.3-7.7); Neutrophils % (A) 71 %; Platelet Count 151 k/uL (150-450); RBC 4.31 m/uL (4.30-5.90); RDW 13.5 % (11.5-15.5); WBC 5.2 k/uL (3.8-10.6)
[2018-01-05 10:48] LABS: Albumin 4.4 g/dL (3.5-5.0); Bilirubin, Delta 0.4 mg/dL (0.0-0.2); Calcium 10.1 mg/dL (8.4-10.2); Magnesium 2.1 mg/dL (1.6-2.3); Phosphorus 5.6 mg/dL (2.5-4.5); Potassium 4.1 mmol/L (3.5-5.1); Total Bilirubin 0.4 mg/dL (0.2-1.3); Total Protein 7.1 g/dL (6.3-8.2); Uric Acid 10.2 mg/dL (3.5-8.5)
[2018-01-05 11:15] LABS: Prostate Specific Antigen 2.82 ng/mL (0.00-4.00)
[2018-01-05 16:00] LABS: Parathyroid Hormone Intact 169.6 pg/mL (14.0-72.0)
[2018-01-05 16:33] LABS: HIV AB P24 Non-Reactive (Non-Reactive); HIV P24 AG Non-Reactive (Non-Reactive)
[2018-01-05 16:47] LABS: Hemoglobin A1C 7.9 % (4.0-6.0)
[2018-01-05 16:49] LABS: Hepatitis B Core IgM Non-Reactive (Non-Reactive); Hepatitis B Surface AB- Quant 3.5 mIU/mL; Hepatitis C IgG Antibody Non-Reactive (Non-Reactive)
[2018-01-06 14:03] LABS: Hepatits C Virus RNA Not detected (Not detected); Hepatits C Virus RNA, Quant <12 IU/mL (<12); LOG HCV IU/mL <1.08 (<1.08)
== END | disposition home or self-care (01) ==
LOC: LABWHC1 09:17
PROVIDERS: ATTEND Internal Medicine
DX: K71.6 Toxic liver disease with hepatitis, not elsewhere classified (principal); B17.10 Acute hepatitis C without hepatic coma; Z11.4 Encounter for screening for human immunodeficiency virus [HIV]; Z11.3 Encounter for screening for infections with a predominantly sexual mode of transmission; Z11.59 Encounter for screening for other viral diseases; E80.7 Disorder of bilirubin metabolism, unspecified; R68.89 Other general symptoms and signs; E11.65 Type 2 diabetes mellitus with hyperglycemia; D53.9 Nutritional anemia, unspecified; N41.9 Inflammatory disease of prostate, unspecified; Z20.1 Contact with and (suspected) exposure to tuberculosis; Z13.6 Encounter for screening for cardiovascular disorders; R53.83 Other fatigue; E11.69 Type 2 diabetes mellitus with other specified complication; E78.4 Other hyperlipidemia; N40.0 Benign prostatic hyperplasia without lower urinary tract symptoms; E78.00 Pure hypercholesterolemia, unspecified
CPT/HCPCS: 36415; 80053; 80061; 82248; 82728; 82977; 83036; 83540; 83550; 83615; 83735; 83970; 84100; 84153; 84443; 84550; 85025; 86480; 86704; 86705; 86706; 86780; 86803; 87340; 87390; 87522; 93005

== ENCOUNTER → 2018-02-07 | Outpatient (CLI) | payer BC, MEDICARE ==
[2018-02-07 09:45] LABS: HCT 30.7 % (39.0-53.0); HGB 10.7 gm/dL (13.0-17.5); MCV 82.8 fL (80.0-100.0); Mean Platelet Volume 8.3; Platelet Count 123 k/uL (150-450); RDW 13.9 % (11.5-15.5)
[2018-02-07 10:14] LABS: Calcium 9.3 mg/dL (8.4-10.2); Magnesium 2.2 mg/dL (1.6-2.3); Total Bilirubin 0.4 mg/dL (0.2-1.3); Total Protein 6.3 g/dL (6.3-8.2); Uric Acid 7.8 mg/dL (3.5-8.5)
[2018-02-07 16:58] LABS: Iron Saturation 23.34 (15.00-50.00)
[2018-02-07 17:06] LABS: Vitamin D 25 Hydroxy 27.9 ng/mL (30.0-100.0)
[2018-02-07 18:00] LABS: Parathyroid Hormone Intact 180.5 pg/mL (14.0-72.0)
== END | disposition home or self-care (01) ==
LOC: LABWHC1 08:39
PROVIDERS: ATTEND Nurse Practitioner Family
DX: D64.9 Anemia, unspecified (principal); E21.3 Hyperparathyroidism, unspecified; E55.9 Vitamin D deficiency, unspecified; M10.9 Gout, unspecified; N18.5 Chronic kidney disease, stage 5
CPT/HCPCS: 36415; 80053; 82306; 82728; 83540; 83550; 83735; 83970; 84100; 84550; 85027

== ENCOUNTER → 2018-03-14 | Outpatient (CLI) | payer BC, MEDICARE ==
[2018-03-14 10:44] LABS: Albumin 4.5 g/dL (3.5-5.0); Calcium 9.6 mg/dL (8.4-10.2); Magnesium 2.2 mg/dL (1.6-2.3); Phosphorus 5.3 mg/dL (2.5-4.5); Potassium 4.2 mmol/L (3.5-5.1); Total Bilirubin 0.5 mg/dL (0.2-1.3); Total Protein 6.7 g/dL (6.3-8.2); Uric Acid 7.2 mg/dL (3.5-8.5)
[2018-03-14 16:29] LABS: Iron Saturation 28.32 (15.00-50.00)
[2018-03-14 16:39] LABS: Vitamin D 25 Hydroxy 26.2 ng/mL (30.0-100.0)
== END | disposition home or self-care (01) ==
LOC: LABWHC1 10:03
PROVIDERS: ATTEND Nurse Practitioner Family
DX: N18.5 Chronic kidney disease, stage 5 (principal); D64.9 Anemia, unspecified; E21.3 Hyperparathyroidism, unspecified; E55.9 Vitamin D deficiency, unspecified; M10.9 Gout, unspecified
CPT/HCPCS: 36415; 80053; 82306; 82728; 83540; 83550; 83735; 83970; 84100; 84550

== ENCOUNTER → 2018-04-06 | Outpatient (CLI) | payer BC, MEDICARE | END | disposition home or self-care (01) | LOC: LABWHC1 14:57 | PROVIDERS: ATTEND Surgery | DX: Z76.82 Awaiting organ transplant status (principal) | CPT/HCPCS: 36415 ==

== ENCOUNTER → 2018-04-23 | Outpatient (CLI) | payer BC, MEDICARE ==
--- NOTE | 2018-04-23 10:25 | US ---
EXAMINATION TYPE: US kidneys/renal and bladder DATE OF EXAM: 04/23/2018 COMPARISON: 07/08/2017 CLINICAL HISTORY: 58-year-old male N28.1 evaluate renal cysts. Chronic kidney disease, evaluate isra l cysts TECHNIQUE: Multiple sonographic images of the kidneys and bladder are obtained. FINDINGS: EXAM MEASUREMENTS: Right Kidney: 8.5 x 4.9 x 4.5 cm Left Kidney: 10.5 x 5.2 x 4.8 cm Right Kidney: No hydronephrosis. The kidney is small/atrophic with a cyst in the midpole = 1.4 x 1.0 x 1.2 cm Left Kidney: No hydronephrosis. There are 2 small cysts mid 1) 1.0 x 0.7 x 0.9 cm and 2) 0.8 x 0.6 x 0.8 cm/ hypoechoic area anterior to left kidney not seen previously Bladder: wnl Bilateral Jets seen: No IMPRESSION: 1. No hydronephrosis. Atrophic right kidney. 2. Stable 1.4 cm cyst mid right kidney. 3. Stable small 1 cm cortical cyst mid left kidney. A second hypoechoic area along the cortex just be low measures 8 mm and is new. A new small cortical cyst is favored. 6 month follow-up can reassess.
--- NOTE | 2018-04-23 10:42 | XR ---
EXAMINATION TYPE: XR chest 2V DATE OF EXAM: 04/23/2018 COMPARISON: Prior chest x-ray 02/18/2014 HISTORY: Preop for kidney transplant TECHNIQUE: Frontal and lateral views of the chest are obtained. FINDINGS: There is no focal air space opacity, pleural effusion, or pneumothorax seen. The cardiac silhouette size is within normal limits. The osseous structures are intact. IMPRESSION: No acute cardiopulmonary process.
== END | disposition home or self-care (01) ==
LOC: RADUSWWP 08:51
PROVIDERS: ATTEND Surgery
DX: N26.1 Atrophy of kidney (terminal) (principal); N28.1 Cyst of kidney, acquired; R93.422 Abnormal radiologic findings on diagnostic imaging of left kidney; R91.8 Other nonspecific abnormal finding of lung field
CPT/HCPCS: 71046; 76770

== ENCOUNTER → 2018-05-09 | Outpatient (CLI) | payer BC, MEDICARE ==
[2018-05-09 10:20] LABS: Basophils % (A) 1 %; Eosinophils # (A) 0.1 k/uL (0-0.7); Eosinophils % (A) 3 %; HCT 30.9 % (39.0-53.0); HGB 10.6 gm/dL (13.0-17.5); Lymphocytes # (A) 0.7 k/uL (1.0-4.8); Lymphocytes % (A) 18 %; MCHC 34.5 g/dL (31.0-37.0); Mean Platelet Volume 7.4; Monocytes # (A) 0.3 k/uL (0-1.0); Monocytes % (A) 9 %; Neutrophils # (A) 2.6 k/uL (1.3-7.7); Neutrophils % (A) 66 %; Platelet Count 155 k/uL (150-450); RBC 3.55 m/uL (4.30-5.90); RDW 13.5 % (11.5-15.5); WBC 3.9 k/uL (3.8-10.6)
[2018-05-09 10:22] LABS: Appearance,Urine Clear (Clear); Bacteria,Urine Rare /hpf; Bilirubin,Urine Negative (Negative); Blood,Urine Trace (Negative); Color,Urine Light Yellow; Glucose,Urine (UA) Negative (Negative); Ketones,Urine Negative (Negative); Leukocyte Esterase,Urine Negative (Negative); Mucus,Urine Rare /hpf; Nitrite,Urine Negative (Negative); PH, Urine 5.5 (5.0-8.0); Protein,Urine 1+ (Negative); Specific Gravity,Urine 1.012 (1.001-1.035); Urobilinogen,Urine <2.0 mg/dL (<2.0); WBC,Urine 1 /hpf (0-5)
[2018-05-09 10:41] LABS: Albumin 4.6 g/dL (3.5-5.0); Calcium 9.7 mg/dL (8.4-10.2); Magnesium 2.2 mg/dL (1.6-2.3); Phosphorus 6.3 mg/dL (2.5-4.5); Potassium 4.4 mmol/L (3.5-5.1); Uric Acid 7.8 mg/dL (3.5-8.5)
[2018-05-09 17:23] LABS: Iron Saturation 28.57 (15.00-50.00)
[2018-05-09 17:31] LABS: Vitamin D 25 Hydroxy 34.6 ng/mL (30.0-100.0)
[2018-05-09 17:48] LABS: Parathyroid Hormone Intact 204.1 pg/mL (14.0-72.0)
== END | disposition home or self-care (01) ==
LOC: LABWHC1 09:23
PROVIDERS: ATTEND Internal Medicine Nephrology
DX: N18.5 Chronic kidney disease, stage 5 (principal); D63.1 Anemia in chronic kidney disease; E55.9 Vitamin D deficiency, unspecified; M10.9 Gout, unspecified; N39.0 Urinary tract infection, site not specified
CPT/HCPCS: 36415; 80048; 81001; 82040; 82306; 82728; 83540; 83550; 83735; 83970; 84100; 84550; 85025

== ENCOUNTER → 2018-05-25 | Outpatient (CLI) | payer BC, MEDICARE ==
[2018-05-25 19:54] LABS: Hemoglobin A1C 7.4 % (4.0-6.0)
== END | disposition home or self-care (01) ==
LOC: LABWHC1 09:31
PROVIDERS: ATTEND Internal Medicine Nephrology
DX: E11.65 Type 2 diabetes mellitus with hyperglycemia (principal); D63.1 Anemia in chronic kidney disease
CPT/HCPCS: 36415; 82272; 83036

== ENCOUNTER → 2018-10-10 | Outpatient (CLI) | payer BC, MEDICARE ==
[2018-10-10 20:22] LABS: Hemoglobin A1C 7.4 % (4.0-6.0)
== END | disposition home or self-care (01) ==
LOC: LABWHC1 09:07
PROVIDERS: ATTEND Internal Medicine
DX: E11.65 Type 2 diabetes mellitus with hyperglycemia (principal)
CPT/HCPCS: 36415; 83036

== ENCOUNTER → 2019-02-09 | Outpatient (CLI) | payer BC, MEDICARE ==
[2019-02-09 17:03] LABS: Anisocytosis Slight; Basophils % (A) 1 %; Eosinophils # (A) 0.1 k/uL (0-0.7); Eosinophils % (A) 3 %; HCT 30.1 % (39.0-53.0); HGB 10.5 gm/dL (13.0-17.5); Lymphocytes # (A) 0.8 k/uL (1.0-4.8); Lymphocytes % (A) 26 %; MCH 32.7 pg (25.0-35.0); MCHC 34.9 g/dL (31.0-37.0); MCV 93.6 fL (80.0-100.0); Mean Platelet Volume 7.8; Monocytes # (A) 0.3 k/uL (0-1.0); Monocytes % (A) 8 %; Neutrophils # (A) 1.9 k/uL (1.3-7.7); Neutrophils % (A) 58 %; Platelet Count 160 k/uL (150-450); RBC 3.21 m/uL (4.30-5.90); RDW 16.9 % (11.5-15.5); WBC 3.2 k/uL (3.8-10.6)
[2019-02-10 00:27] LABS: ALT 26 U/L (10-49); AST 26 U/L (14-35); Albumin/Globulin Ratio 2.56 (1.60-3.17); Alkaline Phosphatase 89 U/L (41-126); Calcium 9.7 mg/dL (8.7-10.3); Carbon Dioxide 31.8 mmol/L (21.6-31.8); Chloride 99 mmol/L (96-109); Cholesterol 120 mg/dL (0-200); GGT <15 U/L (0-73); Globulin 1.8 g/dL (1.6-3.3); Glucose 84 mg/dL (70-110); LDH 284 U/L (120-246); Potassium 3.9 mmol/L (3.5-5.5); Sodium 141 mmol/L (135-145); Total Bilirubin 0.5 mg/dL (0.3-1.2); Total Protein 6.4 g/dL (6.2-8.2)
[2019-02-10 01:53] LABS: HIV 1 AB Non-Reactive (Non-Reactive); HIV AB P24 Non-Reactive (Non-Reactive); HIV P24 AG Non-Reactive (Non-Reactive)
[2019-02-10 01:54] LABS: Hepatitis B Core IgM Non-Reactive (Non-Reactive); Hepatitis C IgG Antibody Non-Reactive (Non-Reactive)
[2019-02-10 15:33] LABS: Hemoglobin A1C 6.2 % (4.0-6.0)
[2019-02-11 14:47] LABS: Hepatits C Virus RNA Not detected (Not detected); Hepatits C Virus RNA, Quant <12 IU/mL (<12); LOG HCV IU/mL <1.08 (<1.08)
== END | disposition home or self-care (01) ==
LOC: LABWHC1 15:39
PROVIDERS: ATTEND Surgery
DX: N40.0 Benign prostatic hyperplasia without lower urinary tract symptoms (principal); K71.6 Toxic liver disease with hepatitis, not elsewhere classified; B17.10 Acute hepatitis C without hepatic coma; E80.7 Disorder of bilirubin metabolism, unspecified; R68.89 Other general symptoms and signs; E11.65 Type 2 diabetes mellitus with hyperglycemia; D53.9 Nutritional anemia, unspecified; N41.9 Inflammatory disease of prostate, unspecified; E78.00 Pure hypercholesterolemia, unspecified; B27.90 Infectious mononucleosis, unspecified without complication; Z11.1 Encounter for screening for respiratory tuberculosis; Z11.4 Encounter for screening for human immunodeficiency virus [HIV]; Z11.3 Encounter for screening for infections with a predominantly sexual mode of transmission; Z11.59 Encounter for screening for other viral diseases
CPT/HCPCS: 36415; 80053; 82248; 82465; 82977; 83036; 83615; 84153; 85025; 86480; 86704; 86705; 86706; 86780; 86803; 87340; 87390; 87522

== ENCOUNTER → 2019-06-05 | Outpatient (CLI) | payer BC, MEDICARE ==
[2019-06-05 16:46] LABS: LDL Cholesterol,Calculated 60.6 mg/dL (0.0-131.0); VLDL Calculation 38.4 mg/dL (5.00-40.00)
[2019-06-05 18:28] LABS: Hemoglobin A1C 6.2 % (4.0-6.0)
== END | disposition home or self-care (01) ==
LOC: LABWHC1 09:33
PROVIDERS: ATTEND Internal Medicine
DX: E11.65 Type 2 diabetes mellitus with hyperglycemia (principal)
CPT/HCPCS: 36415; 80061; 82043; 82570; 83036

== ENCOUNTER → 2019-07-20 | Outpatient (CLI) | payer BC, MEDICARE ==
--- NOTE | 2019-07-20 11:58 | CT ---
EXAMINATION TYPE: CT abdomen wo/w con DATE OF EXAM: 07/20/2019 COMPARISON: None HISTORY: Kidney mass CT DLP: 1703 mGycm CONTRAST: CT scan of the abdomen is performed with Oral Contrast and without and with IV Contrast, patient inje cted with 100 ml mL of Isovue 300. FINDINGS: LUNG BASES-: No visible nodule. No infiltrate. LIVER/GB: Cholecystectomy clips noted. No space occupying hepatic lesion. Biliary tree is of brody l caliber. PANCREAS: No inflammation. No distinct mass. SPLEEN: No splenic enlargement. No lesion seen. ADRENALS: No nodule. No thickening. KIDNEYS/BLADDER: Atrophic change of the right kidney. No solid renal mass identified. No hydronephros is or nephrolithiasis. BOWEL: Normal appendix. Normal bowel caliber. No inflammation. LYMPH NODES: No greater than 1cm abdominal or pelvic lymph nodes are appreciated. AORTA: No significant abnormality. OSSEOUS STRUCTURES: No significant abnormality is seen. OTHER: No significant additional abnormality is seen. IMPRESSION: 1. Atrophic change right kidney. No solid or cystic renal mass identified at this time.
== END | disposition home or self-care (01) ==
LOC: RADCTMAIN 09:30
PROVIDERS: ATTEND Urology
DX: N26.1 Atrophy of kidney (terminal) (principal); D41.01 Neoplasm of uncertain behavior of right kidney
CPT/HCPCS: 82565; 84520; 74170; 36415; Q9967

== ENCOUNTER → 2019-10-02 | Outpatient (CLI) | payer BC, MEDICARE | END | disposition home or self-care (01) | LOC: LABWHC1 10:51 | PROVIDERS: ATTEND Internal Medicine | DX: E11.65 Type 2 diabetes mellitus with hyperglycemia (principal) | CPT/HCPCS: 36415; 83036 ==

== ENCOUNTER → 2020-08-22 | Outpatient (CLI) | payer BC, MEDICARE | END | disposition home or self-care (01) | LOC: LABWHC1 09:56 | PROVIDERS: ATTEND Internal Medicine | DX: E11.65 Type 2 diabetes mellitus with hyperglycemia (principal) | CPT/HCPCS: 36415; 83036 ==

== ENCOUNTER 2022-11-04 13:34 | Inpatient (IN) | payer MEDICARE, BC ==
--- NOTE | 2022-11-04 15:17 | ED ---
Chest Pain HPI - General Source: patient, RN notes reviewed Mode of arrival: wheelchair <Yvonne Chapin - Last Filed: 11/04/22 15:20> <Ace Ingram - Last Filed: 11/04/22 22:51> - General Chief Complaint: Chest Pain Stated Complaint: chest heaviness Time Seen by Provider: 11/04/22 15:13 - History of Present Illness Initial Comments: Patient is a 62-year-old male who presents to the emergency department with a chief complaint of chest pain. Patient reports heaviness over his entire chest which began last night. Patient woke up with worsening of pain this morning. States the heaviness is making it hard for him to breathe. Patient also reports dry cough for the past couple days. No fever, chills, nausea, vomiting. No alcohol use. No tobacco history. Patient has extensive cardiac history. He follows with Dr. Pond. Had echocardiogram in September for possible surgical clearance. Patient is also a ESRD patient on hemodialysis /. He does have a transplanted kidney which patient states has not been functioning properly. Patient in process of getting back on transplant list. (Yvonne Chapin) This is a 62-year-old male with a significant past medical history including end-stage renal disease on dialysis Friday, and Friday, previous kidney transplant and high blood pressure presents emergency department for worsening shortness of breath. The patient stated he is become increasingly weak and short of breath but without any acute chest pain reported to me. The patient did state that he was on an extra dialysis treatment over the last 2 weeks and stated they continued shortness of breath and fluid on his legs. The patient stated that it was starting to get worse yesterday but became acutely worse today at noon. The patient denied any other acute pain or distress however at this time. The patient was resting in bed comfortably. (Ace Ingram) - Related Data Home Medications Medication Instructions Recorded Confirmed Aspirin 81 mg PO DAILY 03/01/14 11/04/22 Levothyroxine Sodium [Synthroid] 125 mcg PO DAILY 02/06/16 11/04/22 Atorvastatin Calcium 20 mg PO HS 11/04/22 11/04/22 B Complex W-C No.20/Folic Acid 1 mg PO DAILY 11/04/22 11/04/22 [Renal Caps Softgel] Calcium Carbonate [Tums] 500 mg PO DAILY 11/04/22 11/04/22 Cholecalciferol [Vitamin D3 (25 50 mcg PO DAILY 11/04/22 11/04/22 Mcg = 1000 Iu)] Furosemide [Lasix] 80 mg PO BID 11/04/22 11/04/22 Insulin Aspart [NovoLOG Flexpen] See Protocol SQ AC-BRKFST 11/04/22 11/04/22 Insulin Aspart [NovoLOG Flexpen] See Protocol SQ AC-LUNCH 11/04/22 11/04/22 Insulin Aspart [NovoLOG Flexpen] See Protocol SQ AC-SUPPER 11/04/22 11/04/22 Insulin Glargine,Hum.rec.anlog 50 unit SQ HS 11/04/22 11/04/22 [Toujeo Solostar] Pantoprazole [Protonix] 40 mg PO DAILY 11/04/22 11/04/22 Tamsulosin HCl [Flomax] 0.4 mg PO HS 11/04/22 11/04/22 carvediloL [Coreg] 25 mg PO BID 11/04/22 11/04/22 predniSONE See Taper PO DIRECTED 11/04/22 11/04/22 Allergies Allergy/AdvReac Type Severity Reaction Status Date / Time No Known Allergies Allergy Verified 11/04/22 18:07 Review of Systems ROS Other: All systems not noted in ROS Statement are negative. <Yvonne Chapin - Last Filed: 11/04/22 15:20> ROS Other: All systems not noted in ROS Statement are negative. <Ace Ingram - Last Filed: 11/04/22 22:51> ROS Statement: Those systems with pertinent positive or pertinent negative responses have been documented in the HPI. EKG Findings - EKG Comments: EKG Findings:: An EKG was obtained and was interpreted by myself. EKG showed a rate of 90, DC interval 171, QRS duration of 124 and QTC of 440. This EKG showed a normal sinus rhythm with no ST segment elevation or depression noted. <Ace Ingram - Last Filed: 11/04/22 22:51> Past Medical History Past Medical History: Diabetes Mellitus, GERD/Reflux, Hyperlipidemia, Hypertension, Renal Disease, Sleep Apnea/CPAP/BIPAP, Thyroid Disorder Additional Past Medical History / Comment(s): varicose veins, fatty liver, states one kidney not functioning properly, rash that comes and goes, end-stage renal disease started on CAPD History of Any Multi-Drug Resistant Organisms: MRSA Date of last positivie culture/infection: 10/30/17 MDRO Source:: CATH TIP Past Surgical History: Cholecystectomy, Orthopedic Surgery, Tonsillectomy Additional Past Surgical History / Comment(s): ORIF- left hip, ancelmo shoulder rotator cuff, uvula removed, CAPD catheter placement. kidney transplant Aug 2020 Past Anesthesia/Blood Transfusion Reactions: No Reported Reaction Past Psychological History: No Psychological Hx Reported Smoking Status: Never smoker, Second hand smoke exposure Past Alcohol Use History: None Reported Past Drug Use History: None Reported - Past Family History Father Family Medical History: Cancer, Deep Vein Thrombosis (DVT) <Yvonne Chapin - Last Filed: 11/04/22 15:20> General Exam Limitations: no limitations General appearance: alert, in no apparent distress Head exam: Present: atraumatic, normocephalic, normal inspection Eye exam: Present: normal appearance, PERRL Pupils: Present: normal accommodation ENT exam: Present: normal exam, normal oropharynx, mucous membranes moist Neck exam: Present: normal inspection, full ROM Respiratory exam: Present: normal lung sounds bilaterally Cardiovascular Exam: Present: regular rate, normal rhythm, normal heart sounds GI/Abdominal exam: Present: soft, tenderness (Mild tenderness to palpation on the right side of the abdomen consistent with previous abdominal pain secondary to previous kidney transplant), normal bowel sounds Extremities exam: Present: normal inspection, full ROM, pedal edema Back exam: Present: normal inspection, full ROM Neurological exam: Present: alert, oriented X3, CN II-XII intact Psychiatric exam: Present: normal affect, normal mood Skin exam: Present: warm, dry <Ace Ingram - Last Filed: 11/04/22 22:51> Course Vital Signs 11/04/22 11/04/22 11/04/22 14:39 16:15 16:43 Temperature 98.3 F Pulse Rate 89 90 Pulse Rate [ 91 Ambulatory Care Nurse ] Respiratory 18 20 Rate Blood Pressure 159/82 147/85 O2 Sat by Pulse 98 98 Oximetry 11/04/22 11/04/22 11/04/22 18:12 20:10 21:35 Temperature Pulse Rate 90 85 89 Pulse Rate [ Ambulatory Care Nurse ] Respiratory 18 18 18 Rate Blood Pressure 168/91 162/86 156/85 O2 Sat by Pulse 98 100 100 Oximetry Chest Pain MDM <NatalyAce contreras - Last Filed: 11/04/22 22:51> - MDM Was pt. sent in by a medical professional or institution (, ERIC, AERONAUTICAL DESIGN ENGINEER, urgent care, hospital, or fpc...) When possible be specific @ -No Did you speak to anyone other than the patient for history (EMS, parent, family, police, friend...)? What history was obtained from this source @ -Yes, patient's Did you review nursing and triage notes (agree or disagree)? Why? @ -I reviewed and agree with nursing and triage notes Were old charts reviewed (outside hosp., previous admission, EMS record, old EKG, old radiological studies, urgent care reports/EKG's, fpc records)? Report findings @ -No old charts were reviewed Differential Diagnosis (chest pain, altered mental status, abdominal pain women, abdominal pain men, vaginal bleeding, weakness, fever, dyspnea, syncope, headache, dizziness, GI bleed, back pain, seizure, CVA, palpatations, mental health)? @ -Acute fluid overload, pneumonia, ACS EKG interpreted by me (3pts min.). @ -As above X-rays interpreted by me (1pt min.). @ -Chest x-ray was obtained and was interpreted by myself showing prominent perihilar interstitial lung markings which can be seen with pulmonary edema vers us atypical viral pneumonia. Due to the patient's history of end-stage renal disease on dialysis, the patient was likely fluid overload and not having pneumonia actively occurring. CT interpreted by me (1pt min.). @ -None done U/S interpreted by me (1pt. min.). @ -None done What testing was considered but not performed or refused? (CT, X-rays, U/S, labs)? Why? @ -CTA of the chest was considered as the patient had significant elevated d- dimer however due to the patient's end-stage renal disease on dialysis and a cause of the patient's shortness of breath, the patient will not undergo CT at this time but will be deferred to the admitting service for possible VQ scan to rule out PE. What meds were considered but not given or refused? Why? @ -None Did you discuss the management of the patient with other professionals (pro fessionals i.e. , PA, AERONAUTICAL DESIGN ENGINEER, lab, RT, psych nurse, hospital social worker, research consultant, teacher, combat systems officer, case sealer)? Give summary @ -Yes, on-call entry level truck driver, Dr. Uriostegui, was contacted and did agree to have the patient undergo dialysis this afternoon. The patient was also admitted to the admitting medicine physician and he was also contacted and evaluated the patient at the bedside. Was smoking cessation discussed for >3mins.? @ -No Was critical care preformed (if so, how long)? @ -No Were there social determinants of health that impacted care today? How? (Homelessness, low income, unemployed, alcoholism, drug addiction, transportation, low edu. Level, literacy, decrease access to med. care, care home, rehab)? @ -No Was there de-escalation of care discussed even if they declined (Discuss DNR or withdrawal of care, Hospice)? DNR status @ -No What co-morbidities impacted this encounter? (DM, HTN, Smoking, COPD, CAD, Cancer, CVA, ARF, Chemo, Hep., AIDS, mental health diagnosis, sleep apnea, morbid obesity)? @ -End-stage renal disease on dialysis, hypertension, previous kidney transplant Was patient admitted / discharged? Hospital course, mention meds given and rou te, prescriptions, significant lab abnormalities, going to OR and other pertinent info. @ -The patient was seen and evaluated in emergency department. Physical exam, the patient was resting in bed with out shortness of breath but without any acute distress. Vital signs were stable. Laboratory workup was obtained and had significance of potassium of 7.2. Creatinine was significantly elevated as well of 8.82. The rest of the patient's laboratory workup was within normal limits however the patient had significant elevation of the proBNP of 28,400. The patient was likely suffering from fluid overload as a cause of the patient's shortness of breath. The patient's potassium was decreased with insulin and D50 per the request of the entry level truck driver, Dr. Uriostegui. The patient did have dialysis ordered for this afternoon per the entry level truck driver and the patient was told of this plan. The patient will be admitted in stable condition. The patient's primary care physician, Dr. Nicholson was also contacted and accepted the patient for admission. The patient and his were agreeable to this and was admitted in stable condition. Undiagnosed new problem with uncertain prognosis? @ -No Drug Therapy requiring intensive monitoring for toxicity (Heparin, Nitro, Insulin, Cardizem)? @ -No Were any procedures done? @ -No Diagnosis/symptom? @ -End-stage renal disease on dialysis with fluid overload Acute, or Chronic, or Acute on Chronic? @ -Acute on chronic Uncomplicated (without systemic symptoms) or Complicated (systemic symptoms)? @ -Complicated Side effects of treatment? @ -No Exacerbation, Progression, or Severe Exacerbation? @ -Exacerbation Poses a threat to life or bodily function? How? (Chest pain, [place], [place], pneumonia, PE, COPD, DKA, ARF, appy, cholecystitis, CVA, Diverticulitis, Homicidal, Suicidal, threat to staff... and all critical care pts) @ -Yes, fluid overload causing shortness of breath Diagnosis/symptom? @ -Hyperkalemia Acute, or Chronic, or Acute on Chronic? @ -Acute Uncomplicated (without systemic symptoms) or Complicated (systemic symptoms)? @ -Uncomplicated Side effects of treatment? @ -none Exacerbation, Progression, or Severe Exacerbation] @ -no Poses a threat to life or bodily function? @ -Yes, hyperkalemia could worsen and cause cardiac arrhythmia. (Ace Ingram) Disposition <Yvonne Chapin - Last Filed: 11/04/22 15:20> Time of Disposition: 17:45 Decision to Admit Reason: Admit from EC Decision Date: 11/04/22 Decision Time: 17:45 <Ace Ingram - Last Filed: 11/04/22 22:51> Clinical Impression: ESRD (end stage renal disease), Fluid overload, Hemodialysis patient, Hyperkalemia Disposition: ADMITTED IP TO THIS [facility] Condition: Stable
[2022-11-04 15:23] LABS: Anisocytosis Slight; Basophils % (A) 0 %; Eosinophils # (A) 0.1 k/uL (0-0.7); Eosinophils % (A) 1 %; HCT 29.9 % (39.0-53.0); HGB 9.4 gm/dL (13.0-17.5); Lymphocytes # (A) 0.2 k/uL (1.0-4.8); Lymphocytes % (A) 3 %; MCH 29.3 pg (25.0-35.0); MCHC 31.6 g/dL (31.0-37.0); MCV 92.7 fL (80.0-100.0); Monocytes # (A) 0.2 k/uL (0-1.0); Monocytes % (A) 4 %; Neutrophils # (A) 5.6 k/uL (1.3-7.7); Neutrophils % (A) 92 %; Platelet Count 89 k/uL (150-450); RBC 3.23 m/uL (4.30-5.90); RDW 17.3 % (11.5-15.5); WBC 6.1 k/uL (3.8-10.6)
[2022-11-04 15:31] LABS: Albumin 3.7 g/dL (3.5-5.0); Total Bilirubin 0.7 mg/dL (0.2-1.3); Total Protein 5.7 g/dL (6.3-8.2)
[2022-11-04 15:49] LABS: Calcium 5.8 mg/dL (8.4-10.2); Potassium 7.2 mmol/L (3.5-5.1)
--- NOTE | 2022-11-04 15:56 | XR ---
EXAMINATION TYPE: XR chest 2V DATE OF EXAM: 11/04/2022 3:52 PM COMPARISON: Chest radiographs from 04/23/2018. TECHNIQUE: XR chest 2V Frontal and lateral views of the chest. CLINICAL INDICATION:Male, 62 years old with history of chest heavy; FINDINGS: Lungs/Pleura: There is no evidence of pleural effusion, focal consolidation, or pneumothorax. Promin ent interstitial perihilar lung markings. Heart/mediastinum: Cardiomediastinal silhouette is unremarkable. Musculoskeletal: No acute osseous pathology. Other: Cholecystectomy clips are upper quadrant. IMPRESSION: Prominent perihilar interstitial lung markings which can be seen with pulmonary edema versus atypical viral pneumonia.
[2022-11-04] MEDS ORDERED: INSULIN REGULAR 100 UNIT/ML VIAL (IV) IV ONE (18:10)
[2022-11-04] MEDS ORDERED: DEXTROSE 50% SYRINGE 50 ML IVP STA (18:10)
[2022-11-04] MEDS ORDERED: NALOXONE 0.4 MG/ML 1 ML VIAL IV PRN (18:17)
[2022-11-04 18:57] LABS: Glucose,Whole Blood 198 mg/dL (70-110)
[2022-11-04 19:15] LABS: Partial Thromboplastin Time 22.7 sec (22.0-30.0); Prothrombin Time 10.6 sec (9.0-12.0)
[2022-11-05 06:04] LABS: Glucose,Whole Blood 84 mg/dL (70-110)
[2022-11-05 07:03] LABS: Anisocytosis Slight; Basophils % (A) 0 %; Eosinophils # (A) 0.1 k/uL (0-0.7); Eosinophils % (A) 3 %; HCT 27.6 % (39.0-53.0); HGB 8.8 gm/dL (13.0-17.5); Lymphocytes # (A) 0.4 k/uL (1.0-4.8); Lymphocytes % (A) 9 %; MCH 29.9 pg (25.0-35.0); MCV 93.3 fL (80.0-100.0); Mean Platelet Volume 7.6; Monocytes # (A) 0.3 k/uL (0-1.0); Monocytes % (A) 9 %; Neutrophils % (A) 77 %; RBC 2.96 m/uL (4.30-5.90); RDW 17.3 % (11.5-15.5); WBC 3.8 k/uL (3.8-10.6)
[2022-11-05 07:17] LABS: Albumin 3.3 g/dL (3.5-5.0); Potassium 5.3 mmol/L (3.5-5.1); Total Bilirubin 0.8 mg/dL (0.2-1.3); Total Protein 5.2 g/dL (6.3-8.2)
[2022-11-05 07:32] LABS: Calcium 6.1 mg/dL (8.4-10.2)
[2022-11-05 08:02] LABS: Platelet Count 75 k/uL (150-450)
--- NOTE | 2022-11-05 09:44 | CT ---
EXAMINATION TYPE: CT angio chest CT DLP: 618.8 mGycm, Automated exposure control for dose reduction was used. DATE OF EXAM: 11/05/2022 9:27 AM COMPARISON: Chest radiograph 11/04/2022. CLINICAL INDICATION:Male, 62 years old with history of CP, elevated ddimer; TECHNIQUE/CONTRAST: CTA scan of the thorax is performed without and with IV Contrast, patient injected with 100 ml mL of Isovue 370, pulmonary embolism protocol. MIP images are created and reviewed. FINDINGS: Pulmonary Artery: There is no evidence for a filling defect within the pulmonary vasculature to sugge st acute pulmonary embolism. The pulmonary artery is of normal size. Lungs/Pleura: Small bilateral pleural effusions with associated atelectasis. Patchy perihilar groundg lass opacities. No suspicious pulmonary nodule or mass. Airway: Large airways are patent. Heart: Heart is within normal limits for size. No pericardial effusion. Vasculature: No evidence of aortic aneurysm. Mediastinum: No gross evidence of adenopathy. Musculoskeletal: No acute osseous abnormalities. Multilevel degenerative disc disease. Soft Tissues: Unremarkable. Lower neck: No significant findings. Upper Abdomen: Post cholecystectomy. Atrophy of both kidneys with cysts identified in the left kidney .. IMPRESSION: 1. No evidence of pulmonary embolism. 2. Small bilateral pleural effusions with associated atelectasis. 3. Patchy perihilar groundglass opacities which may represent pulmonary edema versus atypical viral p neumonia.
--- NOTE | 2022-11-05 10:31 | P.CRDCN ---
History of Present Illness Consult date: 11/05/22 Consult reason: chest pain History of present illness: History of present illness: This is a 62-year-old female patient of Dr. Mares with past medical history of diabetes, hypertension, hyperlipidemia, end-stage renal disease status post kidney transplant on hemodialysis. Patient was last seen in the office on 09/04/2022 and was treated at that time for dizziness. Holter monitor revealed sinus rhythm with average heart rate of 98. No episodes of sustained ventricular or supraventricular tachyarrhythmias. No episodes of more than 2 second pauses. We have been asked to see the patient regarding chest pain. Patient states that he developed chest pain 2 nights ago on the right side of his chest in his ribs and one around to his back. It was worse with deep breathing. He denies having any lightheadedness or dizziness. No nausea and no diaphoresis. He does have a dry cough this on and off yesterday. He denies any fever or chills but states he had what seemed to be hot and cold flashes yesterday in the emergency center. He is feeling better today. EKG sinus rhythm with nonspecific T-wave inversion, heart rate 90 bpm WBC 3.8, hemoglobin 8.8, platelet count 75. D-dimer 5.68. Initial potassium 7.2 and repeat 5.3. BUN 95 and creatinine 6.84. Calcium 6.1. Troponin 0.064 and 0.080. Influenza A, influenza B, RSV and Covid 19 not detected. Chest x-ray reveals prominent perihilar interstitial lung markings which can be seen with pulmonary edema versus atypical viral pneumonia CTA of the chest revealed no evidence of pulmonary embolism. Small bilateral pleural effusions with associated atelectasis. Patchy perihilar groundglass opacities with May represent pulmonary edema versus atypical pneumonia Lexiscan stress test 04/2022 No reversible myocardial perfusion defects to suggest ischemia. EF 55% Review Of Systems: At the time of my evaluation: Constitutional: No fever, no chills. No weakness, fatigue or lethargy. EENT: No headache. No dizziness. Lungs: No shortness of breath, cough, no sputum production. No wheezing. Cardiovascular: Reports chest pain, no lower extremity edema. No palpitations. No paroxysmal nocturnal dyspnea. No orthopnea. No lightheadedness or dizziness. No syncopal episodes. Abdominal: No abdominal pain. No nausea, vomiting. No diarrhea. No constipation. No bloody or tarry stools. Genitourinary: No dysuria.. No urinary retention. Musculoskeletal: No myalgias. No muscle weakness, no frequent falls. No back pain. No neck pain. Integumentary: No wounds. No rash. No unusual bruising. Neurologic: No aphasia. No facial droop. No change in mentation. No head injury. No headache. Psychiatric: No depression. No anxiety. Endocrine: No abnormal blood sugars. Physical examination: Gen: This is a 62-year-old male, resting in bed and appears to be comfortable and in no acute distress VS: reviewed HEENT: Head is atraumatic, normocephalic. Pupils equal, round. Sclerae is anicteric. NECK: Supple. No JVD. No lymphadenopathy. No thyromegaly. LUNGS: Clear to auscultation. No wheezes or rhonchi. No intercostal retractions. HEART: Regular rate and rhythm. No murmur. ABDOMEN: Soft. Bowel sounds are present. No masses. No tenderness. EXTREMITIES: No pedal edema. No calf tenderness. NEUROLOGICAL: Patient is awake, alert and oriented x3. Cranial nerves 2 through 12 are grossly intact. Assessment: Chest pain with mildly elevated troponins Severe hyperkalemia Hypertension Hyperlipidemia Diabetes End-stage renal disease on hemodialysis Plan: Sed rate ordered to rule out pericarditis Obtain serial troponins Obtain 2-D echocardiogram and Doppler study to assess cardiac structure and function Further recommendations to follow based upon clinical course Thank you kindly for this consultation. Nurse practitioner note has been reviewed, I agree with documented findings and plan of care. Patient was seen and examined. Past Medical History Past Medical History: Diabetes Mellitus, GERD/Reflux, Hyperlipidemia, Hypertension, Renal Disease, Sleep Apnea/CPAP/BIPAP, Thyroid Disorder Additional Past Medical History / Comment(s): varicose veins, fatty liver, rash that comes and goes, end stage renal disease with previous kidney transplant in 2020- in the process of getting back on transplant list. History of Any Multi-Drug Resistant Organisms: MRSA Date of last positivie culture/infection: 10/30/17 MDRO Source:: CATH TIP Past Surgical History: Cholecystectomy, Orthopedic Surgery, Tonsillectomy Additional Past Surgical History / Comment(s): ORIF- left hip, ancelmo shoulder rotator cuff, uvula removed, CAPD catheter placement, hemodialysis fistula to left arm. kidney transplant Aug 2020 Past Anesthesia/Blood Transfusion Reactions: No Reported Reaction Past Psychological History: No Psychological Hx Reported Smoking Status: Never smoker, Second hand smoke exposure Past Alcohol Use History: None Reported Additional Past Alcohol Use History / Comment(s): pt is a lifelong nonsmoker. He denies any medical marijuana, marijuana, street drug or alcohol use. He lives at home with his , son and granddaughter. There is a cat in the home. He denies any service. Past Drug Use History: None Reported - Past Family History Father Family Medical History: Cancer, Deep Vein Thrombosis (DVT) Mother Family Medical History: Diabetes Mellitus Additional Family Medical History / Comment(s): heavy ETOH use Medications and Allergies Home Medications Medication Instructions Recorded Confirmed Type Aspirin 81 mg PO DAILY 03/01/14 11/04/22 History Levothyroxine Sodium [Synthroid] 125 mcg PO DAILY 02/06/16 11/04/22 History Atorvastatin Calcium 20 mg PO HS 11/04/22 11/04/22 History B Complex W-C No.20/Folic Acid 1 mg PO DAILY 11/04/22 11/04/22 History [Renal Caps Softgel] Calcium Carbonate [Tums] 500 mg PO DAILY 11/04/22 11/04/22 History Cholecalciferol [Vitamin D3 (25 50 mcg PO DAILY 11/04/22 11/04/22 History Mcg = 1000 Iu)] Furosemide [Lasix] 80 mg PO BID 11/04/22 11/04/22 History Insulin Aspart [NovoLOG Flexpen] See Protocol AC-BRKFST 11/04/22 11/04/22 History Insulin Aspart [NovoLOG Flexpen] See Protocol SQ AC-LUNCH 11/04/22 11/04/22 History Insulin Aspart [NovoLOG Flexpen] See Protocol AC-SUPPER 11/04/22 11/04/22 History Insulin Glargine,Hum.rec.anlog 50 unit SQ 11/04/22 11/04/22 History [Toujeo Solostar] Pantoprazole [Protonix] 40 mg PO DAILY 11/04/22 11/04/22 History Tamsulosin HCl [Flomax] 0.4 mg PO HS 11/04/22 11/04/22 History carvediloL [Coreg] 25 mg PO BID 11/04/22 11/04/22 History predniSONE See Taper PO DIRECTED 11/04/22 11/04/22 History Allergies Allergy/AdvReac Type Severity Reaction Status Date / Time No Known Allergies Allergy Verified 11/04/22 18:07 Physical Exam Vitals: Vital Signs Temp Pulse Pulse Pulse Resp BP BP 11/05/22 03:29 97.6 F 83 18 158/76 11/05/22 02:38 98.6 F 90 90 20 168/58 11/05/22 00:25 97.7 F 87 16 163/82 11/04/22 23:16 83 17 159/80 11/04/22 22:31 98.1 F 90 18 170/91 11/04/22 21:35 89 18 156/85 11/04/22 20:10 85 18 162/86 11/04/22 18:12 90 18 168/91 11/04/22 16:43 90 20 147/85 11/04/22 16:15 91 11/04/22 14:39 98.3 F 89 18 159/82 Pulse Ox 11/05/22 03:29 99 11/05/22 02:38 11/05/22 00:25 100 11/04/22 23:16 99 11/04/22 22:31 100 11/04/22 21:35 100 11/04/22 20:10 100 11/04/22 18:12 98 11/04/22 16:43 98 11/04/22 16:15 11/04/22 14:39 98 Intake and Output 11/04/22 11/05/22 11/05/22 22:59 06:59 14:59 Intake Total 300 Output Total 1700 Balance -1400 Intake: Hemodialysis 300 Output: Hemodialysis 1700 Other: Voiding Method Toilet Urinal # Voids 1 # Bowel Movements 1 Weight 104 kg Results 11/05/22 06:38 11/05/22 06:38 Cardiac Enzymes 11/04/22 11/04/22 Range/Units 14:53 14:53 AST 18 (17-59) U/L Troponin I 0.064 H* (0.000-0.034) ng/mL Coagulation 11/04/22 Range/Units 16:05 PT 10.6 (9.0-12.0) sec APTT 22.7 (22.0-30.0) sec CBC 11/04/22 Range/Units 14:53 WBC 6.1 (3.8-10.6) k/uL RBC 3.23 L (4.30-5.90) m/uL Hgb 9.4 L (13.0-17.5) gm/dL Hct 29.9 L (39.0-53.0) % Plt Count 89 L (150-450) k/uL Comprehensive Metabolic Panel 11/04/22 Range/Units 14:53 Sodium 137 (137-145) mmol/L Potassium 7.2 H* (3.5-5.1) mmol/L Chloride 100 (98-107) mmol/L Carbon Dioxide 23 (22-30) mmol/L BUN 122 H* (9-20) mg/dL Creatinine 8.82 H* (0.66-1.25) mg/dL Glucose 261 H (74-99) mg/dL Calcium 5.8 L* (8.4-10.2) mg/dL AST 18 (17-59) U/L ALT 22 (4-49) U/L Alkaline Phosphatase 56 (38-126) U/L Total Protein 5.7 L (6.3-8.2) g/dL Albumin 3.7 (3.5-5.0) g/dL Current Medications Generic Name Dose Route Start Last Admin Trade Name Freq PRN Reason Stop Dose Admin Naloxone HCl 0.2 mg 11/04/22 18:17 Naloxone 0.4 Mg/Ml 1 Ml Vial IV Q2M PRN Opioid Reversal Intake and Output 11/04/22 11/05/22 11/05/22 22:59 06:59 14:59 Intake Total 300 Output Total 1700 Balance -1400 Intake: Hemodialysis 300 Output: Hemodialysis 1700 Other: Voiding Method Toilet Urinal # Voids 1 # Bowel Movements 1 Weight 104 kg 11/04/22 14:53 11/04/22 14:53
--- NOTE | 2022-11-05 10:34 | P.HPIM ---
History of Present Illness H&P Date: 11/04/22 Michele Romero, is a 62-year-old male who presented to [facility] emergency room with a chief complaint of chest pain. He was evaluated in the emergency room vital examination on presentation revealed a temperature of 98.3 pulse 89 respiration 18 blood pressure 159/82 pulse ox 98% on room air Laboratory data revealed a white blood count of 6.1 hemoglobin 9.4 platelet count 89 sodium 137 potassium 7.2 chloride 100 CO2 23 BUN 122 creatinine 8.82 calcium was low at 5.8 troponin level pending Testing in the emergency room revealed chest x-ray done in the emergency room revealed prominent perihilar interstitial lung marking which can be seen with pulmonary edema versus atypical viral pneumonia. EKG is still pending Patient was admitted to medical floor for further evaluation and treatment. Patient has a known history of end-stage renal disease on hemodialysis, patient stated that in the last 2 weeks he has been having difficulties with fluid overload and electrolyte imbalance and he had to have an extra dialysis session every week over the last 2 weeks nephrology consultation was called in the emergency room and patient is scheduled to have hemodialysis tonight Past medical history is significant for history of diabetes mellitus type 2, history of hypertension, history of hyperlipidemia, history of hypothyroidism, history of obstructive sleep apnea, history of gout, and history of end-stage renal disease on hemodialysis, patient denies any previous history of coronary artery disease or myocardial infarction On review of systems patient is alert and oriented 3 in no apparent distress there is no fever or chills no headache or dizziness no cough he has complaint of chest pressure since yesterday on and off with shortness of breath and chest tightness, there is no nausea or vomiting no abdominal pain no diarrhea no blood in the stools no burning with urination no frequency or urgency and no hematuria. Past Medical History Past Medical History: Diabetes Mellitus, GERD/Reflux, Hyperlipidemia, Hypertension, Renal Disease, Sleep Apnea/CPAP/BIPAP, Thyroid Disorder Additional Past Medical History / Comment(s): varicose veins, fatty liver, states one kidney not functioning properly, rash that comes and goes, end-stage renal disease started on CAPD History of Any Multi-Drug Resistant Organisms: MRSA Date of last positivie culture/infection: 10/30/17 MDRO Source:: CATH TIP Past Surgical History: Cholecystectomy, Orthopedic Surgery, Tonsillectomy Additional Past Surgical History / Comment(s): ORIF- left hip, ancelmo shoulder rotator cuff, uvula removed, CAPD catheter placement. kidney transplant Aug 2020 Past Anesthesia/Blood Transfusion Reactions: No Reported Reaction Past Psychological History: No Psychological Hx Reported Smoking Status: Never smoker, Second hand smoke exposure Past Alcohol Use History: None Reported Past Drug Use History: None Reported - Past Family History Father Family Medical History: Cancer, Deep Vein Thrombosis (DVT) Medications and Allergies Home Medications Medication Instructions Recorded Confirmed Type Aspirin 81 mg PO DAILY 03/01/14 03/29/22 History Levothyroxine Sodium [Synthroid] 125 mcg PO W/SUPPER 02/06/16 03/29/22 History Atorvastatin Calcium 20 mg PO HS 11/04/22 11/04/22 History B Complex W-C No.20/Folic Acid 1 mg PO DAILY 11/04/22 11/04/22 History [Renal Caps Softgel] Calcium Carbonate [Tums] 500 mg PO DAILY 11/04/22 11/04/22 History Cholecalciferol [Vitamin D3 (25 50 mcg PO DAILY 11/04/22 11/04/22 History Mcg = 1000 Iu)] Furosemide [Lasix] 80 mg PO BID 11/04/22 11/04/22 History Insulin Aspart [NovoLOG Flexpen] See Protocol AC-BRKFST 11/04/22 11/04/22 History Insulin Aspart [NovoLOG Flexpen] See Protocol SQ AC-LUNCH 11/04/22 11/04/22 History Insulin Aspart [NovoLOG Flexpen] See Protocol SQ AC-SUPPER 11/04/22 11/04/22 History Insulin Glargine,Hum.rec.anlog 50 unit SQ 11/04/22 11/04/22 History [Toujeo Solostar] Pantoprazole [Protonix] 40 mg PO DAILY 11/04/22 11/04/22 History Tamsulosin HCl [Flomax] 0.4 mg PO HS 11/04/22 11/04/22 History carvediloL [Coreg] 25 mg PO BID 11/04/22 11/04/22 History predniSONE See Taper PO DIRECTED 11/04/22 11/04/22 History Allergies Allergy/AdvReac Type Severity Reaction Status Date / Time No Known Allergies Allergy Verified 11/04/22 18:07 Physical Exam Vitals: Vital Signs Temp Pulse Pulse Resp BP Pulse Ox 11/04/22 18:12 90 18 168/91 98 11/04/22 16:43 90 20 147/85 98 11/04/22 16:15 91 11/04/22 14:39 98.3 F 89 18 159/82 98 Intake and Output 11/04/22 11/04/22 11/04/22 06:59 14:59 22:59 Other: Weight 102.058 kg In general patient is alert and oriented x 3 in no distress HEENT head normocephalic and atraumatic Neck is supple no JVD no goiter no lymphadenopathy no carotid bruit Chest examination is clear to auscultation no crackles no wheezing Cardiac exam reveals regular heart sounds S1 and S2 no gallops no murmurs Abdomen is soft nontender no organomegaly with normal bowel sounds Extremity exam reveals no edema no cyanosis or clubbing Neurological examination reveals no gross focal deficits Results CBC & Chem 7: 11/04/22 14:53 11/04/22 14:53 Labs: Abnormal Lab Results - Last 24 Hours (Table) 11/04/22 11/04/22 Range/Units 14:53 14:53 RBC 3.23 L (4.30-5.90) m/uL Hgb 9.4 L (13.0-17.5) gm/dL Hct 29.9 L (39.0-53.0) % RDW 17.3 H (11.5-15.5) % Plt Count 89 L (150-450) k/uL Lymphocytes # 0.2 L (1.0-4.8) k/uL Potassium 7.2 H* (3.5-5.1) mmol/L BUN 122 H* (9-20) mg/dL Creatinine 8.82 H* (0.66-1.25) mg/dL Glucose 261 H (74-99) mg/dL Calcium 5.8 L* (8.4-10.2) mg/dL Total Protein 5.7 L (6.3-8.2) g/dL Assessment and Plan Plan: Chest pain and chest tightness that started 1 day prior to presentation on and o ff, will check EKG and check serial troponin, will consult cardiology Evidence of fluid overload, nephrology consultation requested, plan is to proceed with hemodialysis tonight Electrolytes imbalance with severe hyperkalemia potassium 7.2, patient received dextrose and regular insulin in the emergency room, and is scheduled for hemodialysis tonight Hypocalcemia calcium on presentation 5.8 Evidence of anemia was hemoglobin of 9.4 on presentation Underlying history of end-stage renal disease on hemodialysis Underlying history of hypertension Underlying history of hypothyroidism Underlying history of hyperlipidemia Underlying history of diabetes mellitus type 2 At this time patient will be admitted to telemetry floor Nephrology consultation requested and plan is for hemodialysis tonight In regards to chest pain Will check EKG and serial troponin levels and consult cardiology Home medications reviewed and reordered For DVT prophylaxis we will use subcu Lovenox Will follow during this admission for medical management Prognosis is guarded
[2022-11-05 11:33] LABS: Glucose,Whole Blood 85 mg/dL (70-110)
--- NOTE | 2022-11-05 12:18 | P.NPCON ---
History of Present Illness - Reason for Consult end stage renal disease - History of Present Illness Patient is a 62-year-old male with history of failed renal transplant, currently on hemodialysis on a Friday schedule. Patient is admitted to the hospital with complaints of shortness of breath. He did have some cough. No history of fever or chills or abdominal pain, nausea or vomiting. Chest x-ray showed evidence of pulmonary vascular congestion. Patient had 2 L of ultrafiltration last night and he is currently being dialyzed today as well. Potassium was noted to be 7.2, no EKG changes. Patient did have emergent hemodialysis treatment yesterday. No history of noncompliance with treatments. Patient does get cramps as outpatient with increase ultrafiltration. And I believe he has had an increase in his weight as outpatient and needs adjustment of his dry weight. Review of Systems As per HPI. Other systems negative Past Medical History Past Medical History: Diabetes Mellitus, GERD/Reflux, Hyperlipidemia, Hypertension, Renal Disease, Sleep Apnea/CPAP/BIPAP, Thyroid Disorder Additional Past Medical History / Comment(s): varicose veins, fatty liver, states one kidney not functioning properly, rash that comes and goes, end-stage renal disease started on CAPD History of Any Multi-Drug Resistant Organisms: MRSA Date of last positivie culture/infection: 10/30/17 MDRO Source:: CATH TIP Past Surgical History: Cholecystectomy, Orthopedic Surgery, Tonsillectomy Additional Past Surgical History / Comment(s): ORIF- left hip, ancelmo shoulder rotator cuff, uvula removed, CAPD catheter placement. kidney transplant Aug 2020 Past Anesthesia/Blood Transfusion Reactions: No Reported Reaction Past Psychological History: No Psychological Hx Reported Smoking Status: Never smoker, Second hand smoke exposure Past Alcohol Use History: None Reported Past Drug Use History: None Reported - Past Family History Father Family Medical History: Cancer, Deep Vein Thrombosis (DVT) Mother Family Medical History: Diabetes Mellitus Additional Family Medical History / Comment(s): heavy ETOH use Medications and Allergies Home Medications Medication Instructions Recorded Confirmed Type Aspirin 81 mg PO DAILY 03/01/14 11/04/22 History Levothyroxine Sodium [Synthroid] 125 mcg PO DAILY 02/06/16 11/04/22 History Atorvastatin Calcium 20 mg PO HS 11/04/22 11/04/22 History B Complex W-C No.20/Folic Acid 1 mg PO DAILY 11/04/22 11/04/22 History [Renal Caps Softgel] Calcium Carbonate [Tums] 500 mg PO DAILY 11/04/22 11/04/22 History Cholecalciferol [Vitamin D3 (25 50 mcg PO DAILY 11/04/22 11/04/22 History Mcg = 1000 Iu)] Furosemide [Lasix] 80 mg PO BID 11/04/22 11/04/22 History Insulin Aspart [NovoLOG Flexpen] See Protocol AC-BRKFST 11/04/22 11/04/22 History Insulin Aspart [NovoLOG Flexpen] See Protocol AC-LUNCH 11/04/22 11/04/22 History Insulin Aspart [NovoLOG Flexpen] See Protocol AC-SUPPER 11/04/22 11/04/22 History Insulin Glargine,Hum.rec.anlog 50 unit SQ 11/04/22 11/04/22 History [Toujeo Solostar] Pantoprazole [Protonix] 40 mg PO DAILY 11/04/22 11/04/22 History Tamsulosin HCl [Flomax] 0.4 mg PO HS 11/04/22 11/04/22 History carvediloL [Coreg] 25 mg PO BID 11/04/22 11/04/22 History predniSONE See Taper PO DIRECTED 11/04/22 11/04/22 History Allergies Allergy/AdvReac Type Severity Reaction Status Date / Time No Known Allergies Allergy Verified 11/04/22 18:07 Physical Exam Vitals: Vital Signs Temp Pulse Pulse Pulse Resp BP BP 11/05/22 08:45 97.9 F 87 18 152/75 11/05/22 03:29 97.6 F 83 18 158/76 11/05/22 02:38 98.6 F 90 90 20 168/58 11/05/22 00:25 97.7 F 87 16 163/82 11/04/22 23:16 83 17 159/80 11/04/22 22:31 98.1 F 90 18 170/91 11/04/22 21:35 89 18 156/85 11/04/22 20:10 85 18 162/86 11/04/22 18:12 90 18 168/91 11/04/22 16:43 90 20 147/85 11/04/22 16:15 91 11/04/22 14:39 98.3 F 89 18 159/82 Pulse Ox 11/05/22 08:45 95 11/05/22 03:29 99 11/05/22 02:38 11/05/22 00:25 100 11/04/22 23:16 99 11/04/22 22:31 100 11/04/22 21:35 100 11/04/22 20:10 100 11/04/22 18:12 98 11/04/22 16:43 98 11/04/22 16:15 11/04/22 14:39 98 Intake and Output 11/04/22 11/05/22 11/05/22 22:59 06:59 14:59 Intake Total 300 Output Total 1700 Balance -1400 Intake: Hemodialysis 300 Output: Hemodialysis 1700 Other: Voiding Method Toilet Toilet Urinal Urinal # Voids 1 # Bowel Movements 1 Weight 104 kg Awake, comfortable, no acute distress Examination of the heart S1 and S2 Examination of the lungs bilateral breath sounds are heard, basal crackles Abdomen is soft nontender Examination of lower extremity shows edema 1+ bilaterally IMAGING TECHNICIAN exam grossly intact Results - Lab Results Most recent lab results Calcium 6.1 mg/dL (8.4-10.2) L* 11/05/22 06:38 Magnesium 2.0 mg/dL (1.6-2.3) 11/04/22 14:53 11/05/22 06:38 11/05/22 06:38 Assessment and Plan Assessment: 1. End-stage renal disease on hemodialysis on a Friday schedule 2. Volume overload 3. CK D mineral bone disorder 4. History of failed renal transplant currently with poor urine output and weaned off of immunosuppressants except prednisone. 5. Hypocalcemia associated with CK D mineral bone disorder. Started on Tums with meals as a phosphate binder instead of Renvela. 6. History of hypothyroidism 7. Type 2 diabetes maintained on insulin 8. Hyperkalemia associated with end-stage renal disease status post hemodialysis yesterday. Blood sugar was 198 on initial admission 9. Anemia rule out GI bleed. Component of anemia of chronic disease as well. Plan: Hemodialysis today Adjust dry weight as outpatient Add Tums with meals as phosphate binder and hold Renvela Possible discharge by tomorrow Low potassium diet. Add Aranesp Check stool for occult blood
[2022-11-05] MEDS ORDERED: DARBEPOETIN ALFA 60 MCG/0.3 ML SYRINGE SQ SCH (12:30)
[2022-11-05] MEDS: LEVOTHYROXINE 125 MCG TAB PO SCH (13:57)
[2022-11-05] MEDS: ASPIRIN 81 MG PO SCH (13:57)
[2022-11-05] MEDS: predniSONE 5 MG TAB PO SCH (13:57)
[2022-11-05] MEDS: CALCIUM CARBONATE 500 MG CHEWABLE PO SCH ×2 (13:58→20:21)
[2022-11-05] MEDS: FUROSEMIDE 80 MG TAB PO SCH (15:38)
--- NOTE | 2022-11-05 15:41 | CA ---
Transthoracic Echo Report Name: Michele Romero Age: 62 Gender: M : 1960 Exam Date: 11/05/2022 10:51 Exam Location: [place] [facility] Ht (in): 69 Wt (lb): 229 Ordering Physician: Katya Gardner Attending/Referring Phys: [id number], Jj [employer] Technician Susanna Frederick RDCS Procedure CPT: Indications: LVF Cardiac Hx: Technical Quality: Contrast 1: Total Dose (mL): Contrast 2: Total Dose (mL): MEASUREMENTS (Male / Female) Normal Values 2D ECHO LV Diastolic Diameter PLAX 5.0 cm 4.2 - 5.9 / 3.9 - 5.3 cm LV Systolic Diameter PLAX 3.7 cm IVS Diastolic Thickness 1.2 cm 0.6 - 1.0 / 0.6 - 0.9 cm LVPW Diastolic Thickness 1.5 cm 0.6 - 1.0 / 0.6 - 0.9 cm LV Relative Wall Thickness 0.6 RV Internal Dim ED PLAX 3.1 cm M-MODE Aortic Root Diameter MM 3.2 cm LA Systolic Diameter MM 3.8 cm LA Ao Ratio MM 1.2 MV E Point Septal Separation 1.8 cm AV Cusp Separation MM 1.8 cm DOPPLER MV Area PHT 3.6 cm??? Mitral E Point Velocity 71.2 cm/s Mitral A Point Velocity 83.0 cm/s Mitral E to A Ratio 0.9 MV Deceleration Time 208.5 ms MV E' Velocity 4.3 cm/s Mitral E to MV E' Ratio 16.6 FINDINGS Left Ventricle Mildly increased septal wall thickness. Left ventricular cavity size normal. Left ventricular ejection fraction is estimated at 40-45%. Right Ventricle Normal right ventricular size and function. Right ventricular systolic pressure within normal limits. Right Atrium Normal right atrial size. Left Atrium Normal left atrial size. Mitral Valve Structurally normal mitral valve. Mild mitral regurgitation. Aortic Valve Trileaflet aortic valve. Tricuspid Valve Structurally normal tricuspid valve. Mild tricuspid regurgitation. Pulmonic Valve Pulmonic valve not well visualized. Pericardium Normal pericardium. Aorta Normal size aortic root and proximal ascending aorta. CONCLUSIONS Reduced LV systolic function and normal LV cavity size Previewed by: Dr. Silvestre Sousa MD (Electronically Signed) Final Date: 05 November 2022 15:40
[2022-11-05 16:29] LABS: Glucose,Whole Blood 220 mg/dL (70-110)
--- NOTE | 2022-11-05 17:50 | P.PN ---
Subjective Progress Note Date: 11/05/22 Michele Romero, is a 62-year-old male who presented to [facility] emergency room with a chief complaint of chest pain. He was evaluated in the emergency room vital examination on presentation revealed a temperature of 98.3 pulse 89 respiration 18 blood pressure 159/82 pulse ox 98% on room air Laboratory data revealed a white blood count of 6.1 hemoglobin 9.4 platelet count 89 sodium 137 potassium 7.2 chloride 100 CO2 23 BUN 122 creatinine 8.82 calcium was low at 5.8 troponin level pending Testing in the emergency room revealed chest x-ray done in the emergency room revealed prominent perihilar interstitial lung marking which can be seen with pulmonary edema versus atypical viral pneumonia. EKG is still pending Patient was admitted to medical floor for further evaluation and treatment. Patient has a known history of end-stage renal disease on hemodialysis, patient stated that in the last 2 weeks he has been having difficulties with fluid overload and electrolyte imbalance and he had to have an extra dialysis session every week over the last 2 weeks nephrology consultation was called in the emergency room and patient is scheduled to have hemodialysis tonight Past medical history is significant for history of diabetes mellitus type 2, history of hypertension, history of hyperlipidemia, history of hypothyroidism, history of obstructive sleep apnea, history of gout, and history of end-stage renal disease on hemodialysis, patient denies any previous history of coronary artery disease or myocardial infarction On review of systems patient is alert and oriented 3 in no apparent distress there is no fever or chills no headache or dizziness no cough he has complaint of chest pressure since yesterday on and off with shortness of breath and chest tightness, there is no nausea or vomiting no abdominal pain no diarrhea no blood in the stools no burning with urination no frequency or urgency and no hematuria. On 11/05/2022 patient was seen and examined on the medical floor he is alert and oriented 3 in no apparent distress, he reports significant improvement in his shortness of breath otherwise he denies any complaints there is no fever or chills no headache or dizziness no chest pain no no cough no nausea or vomiting no abdominal pain no diarrhea and no urinary symptoms Objective - Vital Signs Vital signs: Vital Signs Temp 97.9 F 11/05/22 08:45 Pulse 87 11/05/22 08:45 Resp 18 11/05/22 08:45 BP 152/75 11/05/22 08:45 Pulse Ox 95 11/05/22 08:45 FiO2 Intake & Output 11/04/22 11/05/22 11/05/22 18:59 06:59 18:59 Intake Total 300 Output Total 1700 Balance -1400 Weight 102.058 kg 104 kg Intake: Hemodialysis 300 Output: Hemodialysis 1700 Other: Voiding Method Toilet Toilet Urinal Urinal # Voids 1 # Bowel Movements 1 - Exam In general patient is alert and oriented x 3 in no distress HEENT head normocephalic and atraumatic Neck is supple no JVD no goiter no lymphadenopathy no carotid bruit Chest examination is clear to auscultation no crackles no wheezing Cardiac exam reveals regular heart sounds S1 and S2 no gallops no murmurs Abdomen is soft nontender no organomegaly with normal bowel sounds Extremity exam reveals no edema no cyanosis or clubbing Neurological examination reveals no gross focal deficits - Labs CBC & Chem 7: 11/05/22 06:38 11/05/22 06:38 Labs: Abnormal Lab Results - Last 24 Hours (Table) 11/04/22 11/04/22 11/04/22 Range/Units 14:53 14:53 14:53 RBC 3.23 L (4.30-5.90) m/uL Hgb 9.4 L (13.0-17.5) gm/dL Hct 29.9 L (39.0-53.0) % RDW 17.3 H (11.5-15.5) % Plt Count 89 L (150-450) k/uL Lymphocytes # 0.2 L (1.0-4.8) k/uL D-Dimer (<0.60) mg/L FEU Sodium (137-145) mmol/L Potassium 7.2 H* (3.5-5.1) mmol/L BUN 122 H* (9-20) mg/dL Creatinine 8.82 H* (0.66-1.25) mg/dL Glucose 261 H (74-99) mg/dL POC Glucose (mg/dL) (70-110) mg/dL Calcium 5.8 L* (8.4-10.2) mg/dL Troponin I 0.064 H* (0.000-0.034) ng/mL Total Protein 5.7 L (6.3-8.2) g/dL Albumin (3.5-5.0) g/dL 11/04/22 11/04/22 11/05/22 Range/Units 16:05 18:49 06:38 RBC 2.96 L (4.30-5.90) m/uL Hgb 8.8 L (13.0-17.5) gm/dL Hct 27.6 L (39.0-53.0) % RDW 17.3 H (11.5-15.5) % Plt Count 75 L (150-450) k/uL Lymphocytes # 0.4 L (1.0-4.8) k/uL D-Dimer 5.68 H (<0.60) mg/L FEU Sodium (137-145) mmol/L Potassium (3.5-5.1) mmol/L BUN (9-20) mg/dL Creatinine (0.66-1.25) mg/dL Glucose (74-99) mg/dL POC Glucose (mg/dL) 198 H (70-110) mg/dL Calcium (8.4-10.2) mg/dL Troponin I (0.000-0.034) ng/mL Total Protein (6.3-8.2) g/dL Albumin (3.5-5.0) g/dL 11/05/22 11/05/22 Range/Units 06:38 06:38 RBC (4.30-5.90) m/uL Hgb (13.0-17.5) gm/dL Hct (39.0-53.0) % RDW (11.5-15.5) % Plt Count (150-450) k/uL Lymphocytes # (1.0-4.8) k/uL D-Dimer (<0.60) mg/L FEU Sodium 135 L (137-145) mmol/L Potassium 5.3 H (3.5-5.1) mmol/L BUN 95 H (9-20) mg/dL Creatinine 6.84 H (0.66-1.25) mg/dL Glucose (74-99) mg/dL POC Glucose (mg/dL) (70-110) mg/dL Calcium 6.1 L* (8.4-10.2) mg/dL Troponin I 0.080 H* (0.000-0.034) ng/mL Total Protein 5.2 L (6.3-8.2) g/dL Albumin 3.3 L (3.5-5.0) g/dL Assessment and Plan Plan: Chest pain and chest tightness that started 1 day prior to presentation on and off, will check EKG and check serial troponin, will consult cardiology Evidence of fluid overload, nephrology consultation requested, plan is to proceed with hemodialysis tonight Electrolytes imbalance with severe hyperkalemia potassium 7.2, patient received dextrose and regular insulin in the emergency room, and is scheduled for hemodialysis tonight Hypocalcemia calcium on presentation 5.8 Evidence of anemia was hemoglobin of 9.4 on presentation Underlying history of end-stage renal disease on hemodialysis Underlying history of hypertension Underlying history of hypothyroidism Underlying history of hyperlipidemia Underlying history of diabetes mellitus type 2 At this time patient will be admitted to telemetry floor Nephrology consultation requested and plan is for hemodialysis tonight In regards to chest pain Will check EKG and serial troponin levels and consult cardiology Home medications reviewed and reordered For DVT prophylaxis we will use subcu Lovenox Will follow during this admission for medical management Prognosis is guarded
[2022-11-05] MEDS: carvediloL 12.5 MG TAB PO SCH (18:22)
[2022-11-05 20:06] LABS: Glucose,Whole Blood 253 mg/dL (70-110)
[2022-11-05] MEDS: ATORVASTATIN 20 MG TAB PO SCH (20:21)
[2022-11-05] MEDS: TAMSULOSIN 0.4 MG CAP.ER.24H PO SCH (20:21)
[2022-11-05] MEDS: INSULIN DETEMIR (LEVEMIR) 100 UNIT/ML SYR SQ SCH (20:21)
[2022-11-06] MEDS: carvediloL 12.5 MG TAB PO SCH ×2 (06:02→16:56)
[2022-11-06] MEDS: LEVOTHYROXINE 125 MCG TAB PO SCH (06:02)
[2022-11-06 06:04] LABS: Glucose,Whole Blood 87 mg/dL (70-110)
[2022-11-06 08:56] LABS: Anisocytosis Slight; Basophils % (A) 0 %; Eosinophils # (A) 0.1 k/uL (0-0.7); Eosinophils % (A) 1 %; HCT 29.6 % (39.0-53.0); HGB 9.4 gm/dL (13.0-17.5); Lymphocytes # (A) 0.3 k/uL (1.0-4.8); Lymphocytes % (A) 7 %; MCH 29.6 pg (25.0-35.0); MCHC 31.7 g/dL (31.0-37.0); MCV 93.3 fL (80.0-100.0); Mean Platelet Volume 7.8; Monocytes # (A) 0.3 k/uL (0-1.0); Monocytes % (A) 7 %; Neutrophils % (A) 82 %; RBC 3.17 m/uL (4.30-5.90); RDW 17.4 % (11.5-15.5); WBC 3.7 k/uL (3.8-10.6)
[2022-11-06] MEDS ORDERED: CALCIUM CARBONATE 500 MG CHEWABLE PO SCH (09:00)
[2022-11-06] MEDS: CALCIUM CARBONATE 500 MG CHEWABLE PO SCH ×2 (09:02→20:08)
[2022-11-06] MEDS: CHOLECALCIFEROL 25 MCG (1000 IU) TABLET PO SCH (09:02)
[2022-11-06] MEDS: FUROSEMIDE 80 MG TAB PO SCH ×2 (09:02→16:56)
[2022-11-06] MEDS: FOLIC ACID-VIT B COMPLEX-VIT C 1 CAP PO SCH (09:02)
[2022-11-06] MEDS: PANTOPRAZOLE 40 MG TABLET PO SCH (09:02)
[2022-11-06] MEDS: predniSONE 5 MG TAB PO SCH (09:03)
[2022-11-06] MEDS: ASPIRIN 81 MG PO SCH (09:03)
[2022-11-06 09:14] LABS: Platelet Count 74 k/uL (150-450)
[2022-11-06 09:26] LABS: Albumin 3.7 g/dL (3.5-5.0); Calcium 7.4 mg/dL (8.4-10.2); Potassium 4.9 mmol/L (3.5-5.1); Total Protein 5.8 g/dL (6.3-8.2)
[2022-11-06] MEDS ORDERED: ALPRAZolam 0.25 MG TAB PO PRN (10:17)
[2022-11-06] MEDS ORDERED: ATORVASTATIN 80 MG TAB PO STA (10:17)
[2022-11-06] MEDS ORDERED: ALPRAZolam 0.5 MG TAB PO PRN (10:17)
[2022-11-06] MEDS ORDERED: ASPIRIN 325 MG TAB PO STA (10:17)
[2022-11-06] MEDS ORDERED: NITROGLYCERIN SL TABS 0.4 MG TAB SUBLINGUAL PRN (10:17)
--- NOTE | 2022-11-06 10:19 | P.PN ---
Subjective Progress Note Date: 11/06/22 History of present illness: This is a 62-year-old female patient of Dr. Mares with past medical history of diabetes, hypertension, hyperlipidemia, end-stage renal disease status post kidney transplant on hemodialysis. Patient was last seen in the office on 09/04/2022 and was treated at that time for dizziness. Holter monitor revealed sinus rhythm with average heart rate of 98. No episodes of sustained ventricular or supraventricular tachyarrhythmias. No episodes of more than 2 second pauses. We have been asked to see the patient regarding chest pain. Patient states that he developed chest pain 2 nights ago on the right side of his chest in his ribs and one around to his back. It was worse with deep breathing. He denies having any lightheadedness or dizziness. No nausea and no diaphoresis. He does have a dry cough this on and off yesterday. He denies any fever or chills but states he had what seemed to be hot and cold flashes yesterday in the emergency center. He is feeling better today. EKG sinus rhythm with nonspecific T-wave inversion, heart rate 90 bpm WBC 3.8, hemoglobin 8.8, platelet count 75. D-dimer 5.68. Initial potassium 7.2 and repeat 5.3. BUN 95 and creatinine 6.84. Calcium 6.1. Troponin 0.064 and 0.080. Influenza A, influenza B, RSV and Covid 19 not detected. Chest x-ray reveals prominent perihilar interstitial lung markings which can be seen with pulmonary edema versus atypical viral pneumonia CTA of the chest revealed no evidence of pulmonary embolism. Small bilateral pleural effusions with associated atelectasis. Patchy perihilar groundglass opa cities with May represent pulmonary edema versus atypical pneumonia Lexiscan stress test 04/2022 No reversible myocardial perfusion defects to suggest ischemia. EF 55% Echocardiogram 12/26/2021 revealed EF of 50-55%, mild concentric left ventricular hypertrophy. Mild mitral regurgitation, mild tricuspid regurgitation, increased pulmonary artery systolic pressure. PAS P 39 mild meters per degree. 11/06 Patient denies having any chest pain or shortness of breath. He states he is feeling well overall. Echocardiogram came back with EF of 40-45%, mild mitral regurgitation, mild tricuspid regurgitation. Due to the change in that EF and abnormal troponins, case was discussed with Dr. Pond and patient will be scheduled for cardiac catheterization tomorrow. This has been discussed with the patient and he is in agreement. Patient's heart rate is in the 70s and 80s, blood pressure 144/72, pulse ox 90% on room air. property assessment monitor is sinus rhythm. Hemoglobin 9.4, WBC 3.7, platelet count 74. Sodium 135, potassium 4.9, BUN 66 and creatinine 6.26. Sed rate came back normal. Third troponin 0.077. Physical examination: Gen: This is a 62-year-old male, resting in bed and appears to be comfortable and in no acute distress VS: reviewed HEENT: Head is atraumatic, normocephalic. Pupils equal, round. Sclerae is anicteric. NECK: Supple. No JVD. No lymphadenopathy. No thyromegaly. LUNGS: Clear to auscultation. No wheezes or rhonchi. No intercostal retractions. HEART: Regular rate and rhythm. No murmur. ABDOMEN: Soft. Bowel sounds are present. No masses. No tenderness. EXTREMITIES: No pedal edema. No calf tenderness. NEUROLOGICAL: Patient is awake, alert and oriented x3. Cranial nerves 2 through 12 are grossly intact. Assessment: Chest pain with elevated troponins and decrease in EF, rule out coronary artery disease Severe hyperkalemia Hypertension Hyperlipidemia Diabetes End-stage renal disease on hemodialysis Pancytopenia Plan: Patient will be scheduled for cardiac catheterization tomorrow with Dr. Pond. Continue patient on aspirin, atorvastatin, Coreg, Lasix Further recommendations to follow based upon clinical course Nurse practitioner note has been reviewed, I agree with documented findings and plan of care. Patient was seen and examined. Objective - Vital Signs Vital signs: Vital Signs Temp 98.2 F 11/06/22 03:11 Pulse 79 11/06/22 03:11 Resp 16 11/06/22 03:11 BP 137/77 11/06/22 03:11 Pulse Ox 98 11/06/22 03:11 FiO2 Intake & Output 11/05/22 11/06/22 11/06/22 18:59 06:59 18:59 Intake Total 518 Output Total 3600 Balance -3082 Weight 96.5 kg Intake: Oral 118 Hemodialysis 400 Output: Hemodialysis 3600 Other: Voiding Method Toilet Toilet Urinal Urinal # Voids 1 1 - Labs CBC & Chem 7: 11/06/22 08:07 11/06/22 08:07 Labs: Abnormal Lab Results - Last 24 Hours (Table) 11/05/22 11/05/22 11/05/22 Range/Units 06:38 06:38 10:00 Plt Count 75 L (150-450) k/uL POC Glucose (mg/dL) (70-110) mg/dL Troponin I 0.080 H* 0.077 H* (0.000-0.034) ng/mL 11/05/22 11/05/22 Range/Units 16:28 20:04 Plt Count (150-450) k/uL POC Glucose (mg/dL) 220 H 253 H (70-110) mg/dL Troponin I (0.000-0.034) ng/mL
--- NOTE | 2022-11-06 11:07 | P.PN ---
Subjective Patient is seen for follow-up for end-stage renal disease. He was admitted with severe hyperkalemia and volume overload. Patient has had consecutive treatments and states he is feeling better. There are plans for cardiac catheterization tomorrow. Objective - Vital Signs Vital signs: Vital Signs Temp 98.3 F 11/06/22 08:00 Pulse 85 11/06/22 08:00 Resp 17 11/06/22 08:00 BP 144/72 11/06/22 08:00 Pulse Ox 98 11/06/22 03:11 FiO2 Intake & Output 11/05/22 11/06/22 11/06/22 18:59 06:59 18:59 Intake Total 518 Output Total 3600 Balance -3082 Weight 96.5 kg Intake: Oral 118 Hemodialysis 400 Output: Hemodialysis 3600 Other: Voiding Method Toilet Toilet Toilet Urinal Urinal Urinal # Voids 1 1 - Exam Patient is awake, comfortable, alert oriented 3. No acute distress Examination of the heart S1 and S2 Examination of the lungs bilateral breath sounds are heard Abdomen is soft nontender renal transplant is nontender Examination of the lower extremities shows no significant edema CAT OPERATOR exam grossly intact - Labs CBC & Chem 7: 11/06/22 08:07 11/06/22 08:07 Labs: Abnormal Lab Results - Last 24 Hours (Table) 11/05/22 11/05/22 11/06/22 Range/Units 16:28 20:04 08:07 WBC 3.7 L (3.8-10.6) k/uL RBC 3.17 L (4.30-5.90) m/uL Hgb 9.4 L (13.0-17.5) gm/dL Hct 29.6 L (39.0-53.0) % RDW 17.4 H (11.5-15.5) % Plt Count 74 L (150-450) k/uL Lymphocytes # 0.3 L (1.0-4.8) k/uL Sodium (137-145) mmol/L Chloride (98-107) mmol/L BUN (9-20) mg/dL Creatinine (0.66-1.25) mg/dL Glucose (74-99) mg/dL POC Glucose (mg/dL) 220 H 253 H (70-110) mg/dL Calcium (8.4-10.2) mg/dL Total Protein (6.3-8.2) g/dL 11/06/22 Range/Units 08:07 WBC (3.8-10.6) k/uL RBC (4.30-5.90) m/uL Hgb (13.0-17.5) gm/dL Hct (39.0-53.0) % RDW (11.5-15.5) % Plt Count (150-450) k/uL Lymphocytes # (1.0-4.8) k/uL Sodium 135 L (137-145) mmol/L Chloride 95 L (98-107) mmol/L BUN 66 H (9-20) mg/dL Creatinine 6.26 H (0.66-1.25) mg/dL Glucose 156 H (74-99) mg/dL POC Glucose (mg/dL) (70-110) mg/dL Calcium 7.4 L (8.4-10.2) mg/dL Total Protein 5.8 L (6.3-8.2) g/dL Assessment and Plan Assessment: 1. End-stage renal disease on hemodialysis on a Friday schedule 2. Volume overload 3. CK D mineral bone disorder 4. History of failed renal transplant currently with poor urine output and weaned off of immunosuppressants except prednisone. 5. Hypocalcemia associated with CK D mineral bone disorder. Started on Tums with meals as a phosphate binder instead of Renvela. 6. History of hypothyroidism 7. Type 2 diabetes maintained on insulin 8. Hyperkalemia associated with end-stage renal disease status post hemodialysis yesterday. Blood sugar was 198 on initial admission 9. Anemia rule out GI bleed. Component of anemia of chronic disease as well. Plan: Hemodialysis in a.m. after cardiac catheterization
[2022-11-06 11:45] LABS: Glucose,Whole Blood 161 mg/dL (70-110)
--- NOTE | 2022-11-06 11:50 | P.PN ---
Subjective Progress Note Date: 11/06/22 Michele Romero, is a 62-year-old male who presented to [facility] emergency room with a chief complaint of chest pain. He was evaluated in the emergency room vital examination on presentation revealed a temperature of 98.3 pulse 89 respiration 18 blood pressure 159/82 pulse ox 98% on room air Laboratory data revealed a white blood count of 6.1 hemoglobin 9.4 platelet count 89 sodium 137 potassium 7.2 chloride 100 CO2 23 BUN 122 creatinine 8.82 calcium was low at 5.8 troponin level pending Testing in the emergency room revealed chest x-ray done in the emergency room revealed prominent perihilar interstitial lung marking which can be seen with pulmonary edema versus atypical viral pneumonia. EKG is still pending Patient was admitted to medical floor for further evaluation and treatment. Patient has a known history of end-stage renal disease on hemodialysis, patient stated that in the last 2 weeks he has been having difficulties with fluid overload and electrolyte imbalance and he had to have an extra dialysis session every week over the last 2 weeks nephrology consultation was called in the emergency room and patient is scheduled to have hemodialysis tonight Past medical history is significant for history of diabetes mellitus type 2, history of hypertension, history of hyperlipidemia, history of hypothyroidism, history of obstructive sleep apnea, history of gout, and history of end-stage renal disease on hemodialysis, patient denies any previous history of coronary artery disease or myocardial infarction On review of systems patient is alert and oriented 3 in no apparent distress there is no fever or chills no headache or dizziness no cough he has complaint of chest pressure since yesterday on and off with shortness of breath and chest tightness, there is no nausea or vomiting no abdominal pain no diarrhea no blood in the stools no burning with urination no frequency or urgency and no hematuria. On 11/05/2022 patient was seen and examined on the medical floor he is alert and oriented 3 in no apparent distress, he reports significant improvement in his shortness of breath otherwise he denies any complaints there is no fever or chills no headache or dizziness no chest pain no no cough no nausea or vomiting no abdominal pain no diarrhea and no urinary symptoms On 11/06/2022 patient is alert and oriented 3. Per cardiology patient will be scheduled for cardiac catheterization tomorrow. Patient underwent hemodialysis yesterday. Nephrology services are following. Potassium today 4.9. Creatinine 6.26 and bun 66. Patient denies chest pain or shortness of breath. Patient denies nausea vomiting diarrhea. Patient denies any urinary burning or frequency Objective - Vital Signs Vital signs: Vital Signs Temp 98.3 F 11/06/22 08:00 Pulse 80 11/06/22 11:41 Resp 16 11/06/22 11:41 BP 154/61 11/06/22 11:41 Pulse Ox 97 11/06/22 11:41 FiO2 Intake & Output 11/05/22 11/06/22 11/06/22 18:59 06:59 18:59 Intake Total 518 Output Total 3600 Balance -3082 Weight 96.5 kg Intake: Oral 118 Hemodialysis 400 Output: Hemodialysis 3600 Other: Voiding Method Toilet Toilet Toilet Urinal Urinal Urinal # Voids 1 1 - Exam In general patient is alert and oriented x 3 in no distress HEENT head normocephalic and atraumatic Neck is supple no JVD no goiter no lymphadenopathy no carotid bruit Chest examination is clear to auscultation no crackles no wheezing Cardiac exam reveals regular heart sounds S1 and S2 no gallops no murmurs Abdomen is soft nontender no organomegaly with normal bowel sounds Extremity exam reveals no edema no cyanosis or clubbing Neurological examination reveals no gross focal deficits - Labs CBC & Chem 7: 11/06/22 08:07 11/06/22 08:07 Labs: Abnormal Lab Results - Last 24 Hours (Table) 11/05/22 11/05/22 11/06/22 Range/Units 16:28 20:04 08:07 WBC 3.7 L (3.8-10.6) k/uL RBC 3.17 L (4.30-5.90) m/uL Hgb 9.4 L (13.0-17.5) gm/dL Hct 29.6 L (39.0-53.0) % RDW 17.4 H (11.5-15.5) % Plt Count 74 L (150-450) k/uL Lymphocytes # 0.3 L (1.0-4.8) k/uL Sodium (137-145) mmol/L Chloride (98-107) mmol/L BUN (9-20) mg/dL Creatinine (0.66-1.25) mg/dL Glucose (74-99) mg/dL POC Glucose (mg/dL) 220 H 253 H (70-110) mg/dL Calcium (8.4-10.2) mg/dL Total Protein (6.3-8.2) g/dL 11/06/22 11/06/22 Range/Units 08:07 11:43 WBC (3.8-10.6) k/uL RBC (4.30-5.90) m/uL Hgb (13.0-17.5) gm/dL Hct (39.0-53.0) % RDW (11.5-15.5) % Plt Count (150-450) k/uL Lymphocytes # (1.0-4.8) k/uL Sodium 135 L (137-145) mmol/L Chloride 95 L (98-107) mmol/L BUN 66 H (9-20) mg/dL Creatinine 6.26 H (0.66-1.25) mg/dL Glucose 156 H (74-99) mg/dL POC Glucose (mg/dL) 161 H (70-110) mg/dL Calcium 7.4 L (8.4-10.2) mg/dL Total Protein 5.8 L (6.3-8.2) g/dL Assessment and Plan Plan: Chest pain and chest tightness that started 1 day prior to presentation on and off, will check EKG and check serial troponin, will consult cardiology. Plans for cardiac catheterization tomorrow 11/07/2022 Evidence of fluid overload, nephrology consultation requested, plan is to proceed with hemodialysis tonight Electrolytes imbalance with severe hyperkalemia potassium 7.2, patient received dextrose and regular insulin in the emergency room, and is scheduled for hemodialysis tonight. Resolved Hypocalcemia calcium on presentation 5.8. Improved Evidence of anemia was hemoglobin of 9.4 on presentation Underlying history of end-stage renal disease on hemodialysis Underlying history of hypertension Underlying history of hypothyroidism Underlying history of hyperlipidemia Underlying history of diabetes mellitus type 2 At this time patient will be admitted to telemetry floor Patient underwent hemodialysis 11/05/2022 Plans for cardiac catheterization per cardiology of 11/07/2022 Home medications reviewed and reordered For DVT prophylaxis we will use subcu Lovenox Will follow during this admission for medical management Prognosis is guarded
[2022-11-06 16:34] LABS: Glucose,Whole Blood 205 mg/dL (70-110)
[2022-11-06 20:00] LABS: Glucose,Whole Blood 263 mg/dL (70-110)
[2022-11-06] MEDS: INSULIN DETEMIR (LEVEMIR) 100 UNIT/ML SYR SQ SCH (20:06)
[2022-11-06] MEDS: ATORVASTATIN 20 MG TAB PO SCH (20:08)
[2022-11-06] MEDS: TAMSULOSIN 0.4 MG CAP.ER.24H PO SCH (20:08)
[2022-11-07] MEDS: LEVOTHYROXINE 125 MCG TAB PO SCH (05:23)
[2022-11-07] MEDS: carvediloL 12.5 MG TAB PO SCH ×2 (05:23→17:56)
[2022-11-07] MEDS: PANTOPRAZOLE 40 MG TABLET PO SCH (05:23)
[2022-11-07] MEDS: CHOLECALCIFEROL 25 MCG (1000 IU) TABLET PO SCH (05:23)
[2022-11-07] MEDS: CALCIUM CARBONATE 500 MG CHEWABLE PO SCH ×2 (05:24→20:14)
[2022-11-07 05:45] LABS: Glucose,Whole Blood 67 mg/dL (70-110)
[2022-11-07] MEDS ORDERED: ASPIRIN 325 MG TAB PO ONE (06:00)
[2022-11-07] MEDS ORDERED: ATORVASTATIN 80 MG TAB PO ONE (06:00)
[2022-11-07 06:08] LABS: Glucose,Whole Blood 95 mg/dL (70-110)
[2022-11-07] MEDS ORDERED: HEPARIN SODIUM,PORCINE 2,500 UNIT in SODIUM CHLORIDE 0.9% 250 ML IRRIGATION PRN (07:00)
[2022-11-07] MEDS ORDERED: HEPARIN SODIUM,PORCINE 10,000 UNIT in SODIUM CHLORIDE 0.9% 1,000 ML IRRIGATION PRN (07:00)
[2022-11-07] MEDS ORDERED: SODIUM CHLORIDE 0.9% 1,000 ML IV ONE (07:37)
[2022-11-07] MEDS ORDERED: MIDAZOLAM 2 MG/2 ML VIAL IV ONE (07:38)
[2022-11-07] MEDS ORDERED: fentaNYL (PF) 50 MCG/ML 2 ML AMP IV ONE (07:38)
[2022-11-07] MEDS ORDERED: LIDOCAINE 1% INJ 10MG/ML (5 ML VIAL-PF) SQ ONE (07:40)
[2022-11-07] MEDS: VERAPAMIL SYRINGE (5 MG/10 ML) INTRAARTER ONE ×2 (07:41→08:12)
[2022-11-07] MEDS: HEPARIN SODIUM 1,000 UN/ML (10ML VL) IV ONE ×2 (07:45→08:50)
[2022-11-07] MEDS ORDERED: IOPAMIDOL-370 125ML BTL INJ ONE (08:35)
[2022-11-07] MEDS ORDERED: CLOPIDOGREL 75 MG TAB PO ONE (08:49)
[2022-11-07] MEDS ORDERED: NITROGLYCERIN 1000MCG/10ML SYRINGE INTRACORON ONE (08:50)
[2022-11-07] MEDS ORDERED: ATROPINE SULFATE 0.1 MG/ML 10ML SYRINGE IV PRN (08:54)
[2022-11-07] MEDS ORDERED: NITROGLYCERIN SL TABS 0.4 MG TAB SUBLINGUAL PRN (08:54)
[2022-11-07] MEDS ORDERED: RX INFO: IV CONTRAST WAS GIVEN 1 EACH MISC MISCELLANE PRN (08:54)
[2022-11-07] MEDS ORDERED: MAG HYDROX/AL HYDROX/SIMETH 30 ML CUP PO PRN (08:54)
[2022-11-07] MEDS ORDERED: ZOLPIDEM 5 MG TAB PO PRN (08:54)
[2022-11-07] MEDS ORDERED: IOPAMIDOL-370 100ML BTL INJ ONE (08:57)
--- NOTE | 2022-11-07 08:57 | P.PCN ---
Date of Procedure: 11/07/22 Operative Findings: PERCUTANEOUS CORONARY INTERVENTION Performing physician Varinder Srinivasan M.D. Procedure Performed: 1. Successful stenting of the proximal LCx using 2.75 x 15 mm Xience drug- eluting stent with an excellent angiographic results. Indication: Acute non-ST elevation myocardial infarction Approach: Right radial approach Complications: None Level of Sedation: Moderate with a sedation length of 33 minutes Procedure Discussion: Please refer to diagnostic heart catheterization was performed earlier today. Anticoagulation was initiated using heparin with continuous ACT monitoring. Engaging the left main was performed using JL 3.5 guiding catheter. Wire the left circumflex was performed using 2 wires first one was a whisper wire and second one was a run-through wire giving the acute angulation of the left circ umflex from the left main coronary artery and a calcified lesion. Following angioplasty was done using 2.5 mm balloon and subsequently I deployed 2.75 x 15 mm stent where the stent was positioned under fluoroscopy guidance and deployed under its nominal pressure. The following angiogram showed good angiographic results and the procedure was completed was no complications Postprocedure Management: 1. Dual antiplatelet therapy using aspirin and Plavix for 12 months 2. Aggressive cholesterol control 3. Factors modification
[2022-11-07] MEDS: FOLIC ACID-VIT B COMPLEX-VIT C 1 CAP PO SCH (09:27)
[2022-11-07] MEDS: predniSONE 5 MG TAB PO SCH (09:27)
[2022-11-07] MEDS: FUROSEMIDE 80 MG TAB PO SCH ×2 (09:28→17:56)
[2022-11-07 11:09] VITALS: BMI 33.3
[2022-11-07 11:44] LABS: Glucose,Whole Blood 160 mg/dL (70-110)
--- NOTE | 2022-11-07 16:35 | P.PN ---
Subjective Progress Note Date: 11/07/22 Michele Romero, is a 62-year-old male who presented to [facility] emergency room with a chief complaint of chest pain. He was evaluated in the emergency room vital examination on presentation revealed a temperature of 98.3 pulse 89 respiration 18 blood pressure 159/82 pulse ox 98% on room air Laboratory data revealed a white blood count of 6.1 hemoglobin 9.4 platelet count 89 sodium 137 potassium 7.2 chloride 100 CO2 23 BUN 122 creatinine 8.82 calcium was low at 5.8 troponin level pending Testing in the emergency room revealed chest x-ray done in the emergency room revealed prominent perihilar interstitial lung marking which can be seen with pulmonary edema versus atypical viral pneumonia. EKG is still pending Patient was admitted to medical floor for further evaluation and treatment. Patient has a known history of end-stage renal disease on hemodialysis, patient stated that in the last 2 weeks he has been having difficulties with fluid overload and electrolyte imbalance and he had to have an extra dialysis session every week over the last 2 weeks nephrology consultation was called in the emergency room and patient is scheduled to have hemodialysis tonight Past medical history is significant for history of diabetes mellitus type 2, history of hypertension, history of hyperlipidemia, history of hypothyroidism, history of obstructive sleep apnea, history of gout, and history of end-stage renal disease on hemodialysis, patient denies any previous history of coronary artery disease or myocardial infarction On review of systems patient is alert and oriented 3 in no apparent distress there is no fever or chills no headache or dizziness no cough he has complaint of chest pressure since yesterday on and off with shortness of breath and chest tightness, there is no nausea or vomiting no abdominal pain no diarrhea no blood in the stools no burning with urination no frequency or urgency and no hematuria. On 11/05/2022 patient was seen and examined on the medical floor he is alert and oriented 3 in no apparent distress, he reports significant improvement in his shortness of breath otherwise he denies any complaints there is no fever or chills no headache or dizziness no chest pain no no cough no nausea or vomiting no abdominal pain no diarrhea and no urinary symptoms On 11/06/2022 patient is alert and oriented 3. Per cardiology patient will be scheduled for cardiac catheterization tomorrow. Patient underwent hemodialysis yesterday. Nephrology services are following. Potassium today 4.9. Creatinine 6.26 and bun 66. Patient denies chest pain or shortness of breath. Patient denies nausea vomiting diarrhea. Patient denies any urinary burning or frequency. On 11/07/2022 patient was seen and examined on the medical floor he is alert and oriented 3 in no apparent distress he is scheduled for cardiac catheterization today he is also scheduled for repeat hemodialysis today he is feeling well at this time and denies any complaints there is no fever or chills no headache or dizziness no chest pain no shortness of breath no cough no nausea or vomiting no abdominal pain no diarrhea and no urinary symptoms Objective - Vital Signs Vital signs: Vital Signs Temp 97.9 F 11/07/22 05:26 Pulse 63 11/07/22 09:56 Resp 17 11/07/22 09:26 BP 173/80 11/07/22 09:56 Pulse Ox 98 11/07/22 09:26 FiO2 Intake & Output 11/06/22 11/07/22 11/07/22 18:59 06:59 18:59 Intake Total 360 100 Balance 360 100 Weight 99.5 kg Intake: IV 100 Oral 360 Other: Voiding Method Toilet Toilet Urinal Urinal # Voids 1 1 - Exam In general patient is alert and oriented x 3 in no distress HEENT head normocephalic and atraumatic Neck is supple no JVD no goiter no lymphadenopathy no carotid bruit Chest examination is clear to auscultation no crackles no wheezing Cardiac exam reveals regular heart sounds S1 and S2 no gallops no murmurs Abdomen is soft nontender no organomegaly with normal bowel sounds Extremity exam reveals no edema no cyanosis or clubbing Neurological examination reveals no gross focal deficits - Labs CBC & Chem 7: 11/06/22 08:07 11/06/22 08:07 Labs: Abnormal Lab Results - Last 24 Hours (Table) 11/06/22 11/06/22 11/06/22 Range/Units 11:43 16:32 19:58 POC Glucose (mg/dL) 161 H 205 H 263 H (70-110) mg/dL 11/07/22 Range/Units 05:43 POC Glucose (mg/dL) 67 L (70-110) mg/dL Assessment and Plan Plan: Chest pain and chest tightness that started 1 day prior to presentation on and off, will check EKG and check serial troponin, will consult cardiology. Plans for cardiac catheterization tomorrow 11/07/2022 Evidence of fluid overload, nephrology consultation requested, plan is to proceed with hemodialysis tonight Electrolytes imbalance with severe hyperkalemia potassium 7.2, patient received dextrose and regular insulin in the emergency room, and is scheduled for hemodialysis tonight. Resolved Hypocalcemia calcium on presentation 5.8. Improved Evidence of anemia was hemoglobin of 9.4 on presentation Underlying history of end-stage renal disease on hemodialysis Underlying history of hypertension Underlying history of hypothyroidism Underlying history of hyperlipidemia Underlying history of diabetes mellitus type 2 At this time patient will be admitted to telemetry floor Patient underwent hemodialysis 11/05/2022 Plans for cardiac catheterization per cardiology of 11/07/2022 Home medications reviewed and reordered For DVT prophylaxis we will use subcu Lovenox Will follow during this admission for medical management Prognosis is guarded
[2022-11-07 16:37] LABS: Glucose,Whole Blood 239 mg/dL (70-110)
[2022-11-07] MEDS: TAMSULOSIN 0.4 MG CAP.ER.24H PO SCH (20:15)
[2022-11-07] MEDS: ATORVASTATIN 20 MG TAB PO SCH (20:15)
[2022-11-07 20:21] LABS: Glucose,Whole Blood 278 mg/dL (70-110)
[2022-11-07] MEDS: INSULIN DETEMIR (LEVEMIR) 100 UNIT/ML SYR SQ SCH (20:21)
--- NOTE | 2022-11-07 20:45 | P.PN ---
Subjective Patient is seen for follow-up for end-stage renal disease. He was admitted with severe hyperkalemia and volume overload. Patient has had consecutive treatments and states he is feeling better. S/p cardiac cath and coronary stent placement in circumflex Objective - Vital Signs Vital signs: Vital Signs Temp 97.9 F 11/07/22 15:34 Pulse 74 11/07/22 15:34 Resp 19 11/07/22 15:34 BP 151/67 11/07/22 15:34 Pulse Ox 97 11/07/22 15:34 FiO2 Intake & Output 11/07/22 11/07/22 11/08/22 06:59 18:59 06:59 Intake Total 280 Balance 280 Weight 99.5 kg 99.5 kg Intake: IV 100 Oral 180 Other: Voiding Method Toilet Urinal # Voids 1 0 - Exam Patient is awake, comfortable, alert oriented 3. 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 End-stage renal disease on hemodialysis on a Friday schedule 2. Volume overload 3. CK D mineral bone disorder 4. History of failed renal transplant currently with poor urine output and weaned off of immunosuppressants except prednisone. 5. Hypocalcemia associated with CK D mineral bone disorder. Started on Tums with meals as a phosphate binder instead of Renvela. 6. History of hypothyroidism 7. Type 2 diabetes maintained on insulin 8. Hyperkalemia associated with end-stage renal disease status post hemodialysis yesterday. Blood sugar was 198 on initial admission 9. Anemia rule out GI bleed. Component of anemia of chronic disease as well. 10. S/p cardiac cath and coronary stent placement Plan: Next HD on 11/09/21
[2022-11-08] MEDS: carvediloL 12.5 MG TAB PO SCH (06:00)
[2022-11-08] MEDS: LEVOTHYROXINE 125 MCG TAB PO SCH (06:00)
[2022-11-08 06:14] LABS: Glucose,Whole Blood 76 mg/dL (70-110)
[2022-11-08 07:23] LABS: Anisocytosis Slight; HGB 8.4 gm/dL (13.0-17.5); MCH 30.7 pg (25.0-35.0); MCHC 33.6 g/dL (31.0-37.0); MCV 91.3 fL (80.0-100.0); Mean Platelet Volume 7.9; RBC 2.74 m/uL (4.30-5.90); RDW 16.6 % (11.5-15.5); WBC 3.3 k/uL (3.8-10.6)
[2022-11-08 07:41] LABS: Platelet Count 60 k/uL (150-450)
[2022-11-08 07:48] LABS: Calcium 6.7 mg/dL (8.4-10.2); Potassium 4.4 mmol/L (3.5-5.1)
[2022-11-08] MEDS ORDERED: ASPIRIN 81 MG PO SCH (09:00)
[2022-11-08] MEDS ORDERED: CLOPIDOGREL 75 MG TAB PO SCH (09:00)
[2022-11-08] MEDS: PANTOPRAZOLE 40 MG TABLET PO SCH (09:39)
[2022-11-08] MEDS: FUROSEMIDE 80 MG TAB PO SCH (09:39)
[2022-11-08] MEDS: CHOLECALCIFEROL 25 MCG (1000 IU) TABLET PO SCH (09:39)
[2022-11-08] MEDS: FOLIC ACID-VIT B COMPLEX-VIT C 1 CAP PO SCH (09:40)
[2022-11-08] MEDS: CALCIUM CARBONATE 500 MG CHEWABLE PO SCH (09:40)
[2022-11-08] MEDS: predniSONE 5 MG TAB PO SCH (09:40)
--- NOTE | 2022-11-08 10:06 | P.DS ---
Providers Date of admission: 11/04/22 18:17 Expected date of discharge: 11/08/22 Attending physician: Bebo Nicholson Consults: 11/04/22 18:17 Consult Physician Routine Consulting Provider: Kristel Uriostegui Consult Reason/Comments: ESRD on HD, fluid overload, hyperkalemia Do you want consulting provider notified?: Already Contacted 11/04/22 19:01 Consult Physician Routine Consulting Provider: Joel Pond Consult Reason/Comments: chest pain Do you want consulting provider notified?: Yes 11/07/22 08:55 Consult Physician Routine Consulting Provider: [facility] Consult Reason/Comments: Post Interventional Patient Do you want consulting provider notified?: Already Contacted Primary care physician: Beborufina CastellonBharat [facility] Course: Discharge diagnosis Chest pain and chest tightness that started 1 day prior to presentation on and off, will check EKG and check serial troponin, will consult cardiology. Plans for cardiac catheterization tomorrow 11/07/2022 Evidence of fluid overload, nephrology consultation requested, plan is to proceed with hemodialysis tonight Electrolytes imbalance with severe hyperkalemia potassium 7.2, patient received dextrose and regular insulin in the emergency room, and is scheduled for hemodialysis tonight. Resolved Hypocalcemia calcium on presentation 5.8. Improved Evidence of anemia was hemoglobin of 9.4 on presentation Underlying history of end-stage renal disease on hemodialysis Underlying history of hypertension Underlying history of hypothyroidism Underlying history of hyperlipidemia Underlying history of diabetes mellitus type 2 Hospital course Michele Romero, is a 62-year-old male who presented to [facility] emergency room with a chief complaint of chest pain. He was evaluated in the emergency room vital examination on presentation revealed a temperature of 98.3 pulse 89 respiration 18 blood pressure 159/82 pulse ox 98% on room air Laboratory data revealed a white blood count of 6.1 hemoglobin 9.4 platelet count 89 sodium 137 potassium 7.2 chloride 100 CO2 23 BUN 122 creatinine 8.82 calcium was low at 5.8 troponin level pending Testing in the emergency room revealed chest x-ray done in the emergency room revealed prominent perihilar interstitial lung marking which can be seen with pulmonary edema versus atypical viral pneumonia. EKG is still pending Patient was admitted to medical floor for further evaluation and treatment. Patient has a known history of end-stage renal disease on hemodialysis, patient stated that in the last 2 weeks he has been having difficulties with fluid overload and electrolyte imbalance and he had to have an extra dialysis session every week over the last 2 weeks nephrology consultation was called in the emergency room and patient is scheduled to have hemodialysis tonight Past medical history is significant for history of diabetes mellitus type 2, history of hypertension, history of hyperlipidemia, history of hypothyroidism, history of obstructive sleep apnea, history of gout, and history of end-stage renal disease on hemodialysis, patient denies any previous history of coronary artery disease or myocardial infarction On review of systems patient is alert and oriented 3 in no apparent distress there is no fever or chills no headache or dizziness no cough he has complaint of chest pressure since yesterday on and off with shortness of breath and chest tightness, there is no nausea or vomiting no abdominal pain no diarrhea no blood in the stools no burning with urination no frequency or urgency and no hematuria. On 11/05/2022 patient was seen and examined on the medical floor he is alert and oriented 3 in no apparent distress, he reports significant improvement in his shortness of breath otherwise he denies any complaints there is no fever or chills no headache or dizziness no chest pain no no cough no nausea or vomiting no abdominal pain no diarrhea and no urinary symptoms On 11/06/2022 patient is alert and oriented 3. Per cardiology patient will be scheduled for cardiac catheterization tomorrow. Patient underwent hemodialysis yesterday. Nephrology services are following. Potassium today 4.9. Creatinine 6.26 and bun 66. Patient denies chest pain or shortness of breath. Patient denies nausea vomiting diarrhea. Patient denies any urinary burning or frequency. On 11/07/2022 patient was seen and examined on the medical floor he is alert and oriented 3 in no apparent distress he is scheduled for cardiac catheterization today he is also scheduled for repeat hemodialysis today he is feeling well at this time and denies any complaints there is no fever or chills no headache or dizziness no chest pain no shortness of breath no cough no nausea or vomiting no abdominal pain no diarrhea and no urinary symptoms On 11/08/2022 patient underwent cardiac catheterization yesterday and received a stent to the left circumflex. Discussed case with cardiology nurse practitioner Katya. Patient has been cleared for discharge from cardiology standpoint. Patient to follow up with cardiology services outpatient patient will be DC'd on cardiology recommendation of Plavix, aspirin and lisinopril. Patient to receive hemodialysis tomorrow. At this time patient denies chest pain or shortness breath. Patient denies nausea vomiting or diarrhea. Patient denies any urinary burning or frequency Patient Condition at Discharge: Stable Plan - Discharge Summary Discharge Rx Participant: No New Discharge Prescriptions: New Folic Acid-Vit B Complex-Vit C [Nephrocaps] 1 each PO DAILY 30 Days #30 cap Clopidogrel [Plavix] 75 mg PO DAILY 30 Days #30 tab lisinopriL [Zestril] 2.5 mg PO DAILY 30 Days #30 tab Continue Aspirin 81 mg PO DAILY Levothyroxine Sodium [Synthroid] 125 mcg PO DAILY Insulin Aspart [NovoLOG Flexpen] 24 unit SQ AC-SUPPER Insulin Aspart [NovoLOG Flexpen] 16 unit SQ AC-LUNCH Insulin Aspart [NovoLOG Flexpen] 14 unit SQ AC-BRKFST Tamsulosin HCl [Flomax] 0.4 mg PO HS Calcium Carbonate [Tums] 500 mg PO QID Cholecalciferol [Vitamin D3 (25 Mcg = 1000 Iu)] 50 mcg PO DAILY Pantoprazole [Protonix] 40 mg PO DAILY Furosemide [Lasix] 80 mg PO BID predniSONE See Taper PO DIRECTED carvediloL [Coreg] 25 mg PO BID Atorvastatin Calcium 20 mg PO HS Insulin Glargine,Hum.rec.anlog [Tounancyo Alejandro Solostar] 50 units SQ HS Insulin Aspart [NovoLOG Flexpen] See Protocol SQ AC-TID Nephro-Missy 0.8mg 0.8 mg PO DAILY Discharge Medication List Aspirin 81 mg PO DAILY 03/01/14 [History] Levothyroxine Sodium [Synthroid] 125 mcg PO DAILY 02/06/16 [History] Atorvastatin Calcium 20 mg PO HS 11/04/22 [History] Calcium Carbonate [Tums] 500 mg PO QID 11/04/22 [History] Cholecalciferol [Vitamin D3 (25 Mcg = 1000 Iu)] 50 mcg PO DAILY 11/04/22 [History] Furosemide [Lasix] 80 mg PO BID 11/04/22 [History] Insulin Aspart [NovoLOG Flexpen] 14 unit SQ AC-BRKFST 11/04/22 [History] Insulin Aspart [NovoLOG Flexpen] 16 unit SQ AC-LUNCH 11/04/22 [History] Insulin Aspart [NovoLOG Flexpen] 24 unit SQ AC-SUPPER 11/04/22 [History] Pantoprazole [Protonix] 40 mg PO DAILY 11/04/22 [History] Tamsulosin HCl [Flomax] 0.4 mg PO HS 11/04/22 [History] carvediloL [Coreg] 25 mg PO BID 11/04/22 [History] predniSONE See Taper PO DIRECTED 11/04/22 [History] Insulin Aspart [NovoLOG Flexpen] See Protocol SQ AC-TID 11/05/22 [History] Insulin Glargine,Hum.rec.anlog [Toujeo Max Solostar] 50 units SQ HS 11/05/22 [History] Nephro-Missy 0.8mg 0.8 mg PO DAILY 11/05/22 [History] Clopidogrel [Plavix] 75 mg PO DAILY 30 Days #30 tab 11/08/22 [Rx] Folic Acid-Vit B Complex-Vit C [Nephrocaps] 1 each PO DAILY 30 Days #30 cap 11/08/22 [Rx] lisinopriL [Zestril] 2.5 mg PO DAILY 30 Days #30 tab 11/08/22 [Rx] Follow up Appointment(s)/Referral(s): Bebo Nicholson MD [Primary Care Provider] - 1-2 days Varinder Srinivasan MD [STAFF PHYSICIAN] - 1 Week Activity/Diet/Wound Care/Special Instructions: Activity as tolerated Diet heart healthy Hemodialysis scheduled Friday Discharge Disposition: HOME SELF-CARE
[2022-11-08 10:25] VITALS: BP 131/69; PULSE 82; RESP 16; TEMP 98.4
--- NOTE | 2022-11-08 10:28 | P.PN ---
Subjective Progress Note Date: 11/08/22 History of present illness: This is a 62-year-old female patient of Dr. Mares with past medical history of diabetes, hypertension, hyperlipidemia, end-stage renal disease status post kidney transplant on hemodialysis. Patient was last seen in the office on 09/04/2022 and was treated at that time for dizziness. Holter monitor revealed sinus rhythm with average heart rate of 98. No episodes of sustained ventricular or supraventricular tachyarrhythmias. No episodes of more than 2 second pauses. We have been asked to see the patient regarding chest pain. Patient states that he developed chest pain 2 nights ago on the right side of his chest in his ribs and one around to his back. It was worse with deep breathing. He denies having any lightheadedness or dizziness. No nausea and no diaphoresis. He does have a dry cough this on and off yesterday. He denies any fever or chills but states he had what seemed to be hot and cold flashes yesterday in the emergency center. He is feeling better today. EKG sinus rhythm with nonspecific T-wave inversion, heart rate 90 bpm WBC 3.8, hemoglobin 8.8, platelet count 75. D-dimer 5.68. Initial potassium 7.2 and repeat 5.3. BUN 95 and creatinine 6.84. Calcium 6.1. Troponin 0.064 and 0.080. Influenza A, influenza B, RSV and Covid 19 not detected. Chest x-ray reveals prominent perihilar interstitial lung markings which can be seen with pulmonary edema versus atypical viral pneumonia CTA of the chest revealed no evidence of pulmonary embolism. Small bilateral pleural effusions with associated atelectasis. Patchy perihilar groundglass opa cities with May represent pulmonary edema versus atypical pneumonia Lexiscan stress test 04/2022 No reversible myocardial perfusion defects to suggest ischemia. EF 55% Echocardiogram 12/26/2021 revealed EF of 50-55%, mild concentric left ventricular hypertrophy. Mild mitral regurgitation, mild tricuspid regurgitation, increased pulmonary artery systolic pressure. PAS P 39 mild meters per degree. 11/06 Patient denies having any chest pain or shortness of breath. He states he is feeling well overall. Echocardiogram came back with EF of 40-45%, mild mitral regurgitation, mild tricuspid regurgitation. Due to the change in that EF and abnormal troponins, case was discussed with Dr. Pond and patient will be scheduled for cardiac catheterization tomorrow. This has been discussed with the patient and he is in agreement. Patient's heart rate is in the 70s and 80s, blood pressure 144/72, pulse ox 90% on room air. panel monitor is sinus rhythm. Hemoglobin 9.4, WBC 3.7, platelet count 74. Sodium 135, potassium 4.9, BUN 66 and creatinine 6.26. Sed rate came back normal. Third troponin 0.077. 11/08 Yesterday, patient underwent cardiac catheterization and stenting of the left circumflex with Dr. Srinivasan. He is denying any chest pain this morning. He has been in a normal sinus rhythm. Blood pressure is slightly elevated and VIVIAN inhibitor will be added to his medication regime. Potassium is 4.4, hemoglobin 8.4, BUN 55 and creatinine 5.78. Physical examination: Gen: This is a 62-year-old male, resting in bed and appears to be comfortable and in no acute distress VS: reviewed HEENT: Head is atraumatic, normocephalic. Pupils equal, round. Sclerae is anicteric. NECK: Supple. No JVD. No lymphadenopathy. No thyromegaly. LUNGS: Clear to auscultation. No wheezes or rhonchi. No intercostal retractions. HEART: Regular rate and rhythm. No murmur. ABDOMEN: Soft. EXTREMITIES: No pedal edema. No calf tenderness. NEUROLOGICAL: Patient is awake, alert and oriented x3. Assessment: Non-ST elevated myocardial infarction Severe hyperkalemia Hypertension Hyperlipidemia Diabetes End-stage renal disease on hemodialysis Pancytopenia Plan: Continue patient on current medication regime Patient is cleared from cardiology for discharge home and follow-up in the office with Dr. Srinivasan in one week Nurse practitioner note has been reviewed, I agree with documented findings and plan of care. Patient was seen and examined. Objective - Vital Signs Vital signs: Vital Signs Temp 98 F 11/07/22 20:15 Pulse 92 11/08/22 03:55 Resp 18 11/08/22 03:55 BP 150/69 11/08/22 03:55 Pulse Ox 96 11/08/22 03:55 FiO2 Intake & Output 11/07/22 11/08/22 11/08/22 18:59 06:59 18:59 Intake Total 280 Balance 280 Weight 99.5 kg 98.8 kg Intake: IV 100 Oral 180 Other: Voiding Method Toilet Urinal # Voids 0 - Labs CBC & Chem 7: 11/08/22 06:29 11/08/22 06:29 Labs: Abnormal Lab Results - Last 24 Hours (Table) 11/07/22 11/07/22 11/07/22 Range/Units 11:43 16:36 20:20 WBC (3.8-10.6) k/uL RBC (4.30-5.90) m/uL Hgb (13.0-17.5) gm/dL Hct (39.0-53.0) % RDW (11.5-15.5) % Plt Count (150-450) k/uL Sodium (137-145) mmol/L Chloride (98-107) mmol/L BUN (9-20) mg/dL Creatinine (0.66-1.25) mg/dL Glucose (74-99) mg/dL POC Glucose (mg/dL) 160 H 239 H 278 H (70-110) mg/dL Calcium (8.4-10.2) mg/dL 11/08/22 11/08/22 Range/Units 06:29 06:29 WBC 3.3 L (3.8-10.6) k/uL RBC 2.74 L (4.30-5.90) m/uL Hgb 8.4 L (13.0-17.5) gm/dL Hct 25.0 L (39.0-53.0) % RDW 16.6 H (11.5-15.5) % Plt Count 60 L (150-450) k/uL Sodium 133 L (137-145) mmol/L Chloride 97 L (98-107) mmol/L BUN 55 H (9-20) mg/dL Creatinine 5.78 H (0.66-1.25) mg/dL Glucose 62 L (74-99) mg/dL POC Glucose (mg/dL) (70-110) mg/dL Calcium 6.7 L (8.4-10.2) mg/dL
--- NOTE | 2022-11-08 18:23 | P.PN ---
Subjective Patient is seen for follow-up for end-stage renal disease. He was admitted with severe hyperkalemia and volume overload. Patient has had consecutive treatments and states he is feeling better. S/p cardiac cath and coronary stent placement in circumflex No complaints today. For discharge. Objective - Vital Signs Vital signs: Vital Signs Temp 98.4 F 11/08/22 08:00 Pulse 82 11/08/22 08:00 Resp 16 11/08/22 08:00 BP 131/69 11/08/22 08:00 Pulse Ox 97 11/08/22 08:00 FiO2 Intake & Output 11/07/22 11/08/22 11/08/22 18:59 06:59 18:59 Intake Total 280 180 Balance 280 180 Weight 99.5 kg 98.8 kg Intake: IV 100 Oral 180 180 Other: Voiding Method Toilet Urinal # Voids 0 - Exam Patient is awake, comfortable, alert oriented 3. 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 End-stage renal disease on hemodialysis on a Friday schedule 2. Volume overload 3. CK D mineral bone disorder 4. History of failed renal transplant currently with poor urine output and weaned off of immunosuppressants except prednisone. 5. Hypocalcemia associated with CK D mineral bone disorder. Started on Tums with meals as a phosphate binder instead of Renvela. 6. History of hypothyroidism 7. Type 2 diabetes maintained on insulin 8. Hyperkalemia associated with end-stage renal disease status post hemodialysis yesterday. Blood sugar was 198 on initial admission 9. Anemia rule out GI bleed. Component of anemia of chronic disease as well. 10. S/p cardiac cath and coronary stent placement Plan: Hemodialysis as ouptaient tomorrow.
--- NOTE | 2022-11-14 11:42 | CC ---
CARDIAC CATHETERIZATION REPORT INDICATIONS: [id number] elevation TN. PROCEDURE NOTE: After obtaining informed consent, left heart catheterization and coronary angiogram were performed via the right radial artery using Samantha catheters. A size 3.5 right Samantha was used to engage the right coronary artery and a 3.5 left Samantha was used to engage the left coronary artery. The patient tolerated the procedure well without any obvious immediate complications, received moderate conscious sedation. Total sedation time was 30 minutes. The right radial artery access was obtained using modified Seldinger technique. A 6- Maced[place] sheath was placed and catheters and wires were exchanged in the ascending aorta under fluoroscopic guidance. The patient received 5 mg of verapamil and IV heparin per protocol. FINDINGS: 1. Hemodynamics: Left ventricular end-diastolic pressure is 26 mm, there is no significant gradient across the aortic valve. 2. Left Ventriculogram: Left ventriculogram is not performed. 3. Angiographic Data: a.Right coronary artery: Right coronary artery is a large dominant vessel and is free of significant stenosis. Left main coronary artery appears calcified but is free of significant disease, divides into left anterior descending coronary artery and circumflex coronary artery. Circumflex coronary artery shows a 70% to 80% focal stenosis. LAD shows mild nonobstructive disease. CONCLUSIONS: Focal 70-80% stenosis involving circumflex coronary artery. PLAN: Patient will undergo angioplasty with stent placement of the same by Dr. Srinivasan, the on- call toll line inspector. DENISE / MELISSA: [id number] /
== END 2022-11-08 12:02 | disposition home or self-care (01) | DRG 246 ==
LOC: EC 13:34 → 3SCARD 18:17
PROVIDERS: ADMIT Internal Medicine; ATTEND Internal Medicine
PROC: 5A1D70Z Performance of Urinary Filtration, Intermittent, Less than 6 Hours Per Day (ICD-10-PCS; 2022-11-04)
PROC: 027034Z Dilation of Coronary Artery, One Artery with Drug-eluting Intraluminal Device, Percutaneous Approach (ICD-10-PCS; principal; 2022-11-07 07:30)
PROC: B2111ZZ Fluoroscopy of Multiple Coronary Arteries using Low Osmolar Contrast (ICD-10-PCS; 2022-11-07 07:30)
PROC: 4A023N7 Measurement of Cardiac Sampling and Pressure, Left Heart, Percutaneous Approach (ICD-10-PCS; 2022-11-07 07:30)
DX: I21.4 Non-ST elevation (NSTEMI) myocardial infarction (principal); N18.6 End stage renal disease; D61.818 Other pancytopenia; T86.12 Kidney transplant failure; I12.0 Hypertensive chronic kidney disease with stage 5 chronic kidney disease or end stage renal disease; J98.11 Atelectasis; D63.1 Anemia in chronic kidney disease; E83.51 Hypocalcemia; E83.9 Disorder of mineral metabolism, unspecified; E11.22 Type 2 diabetes mellitus with diabetic chronic kidney disease; K76.0 Fatty (change of) liver, not elsewhere classified; Z99.2 Dependence on renal dialysis; Z79.4 Long term (current) use of insulin; Z20.822 Contact with and (suspected) exposure to COVID-19; I25.10 Atherosclerotic heart disease of native coronary artery without angina pectoris; I08.1 Rheumatic disorders of both mitral and tricuspid valves; E87.70 Fluid overload, unspecified; E78.5 Hyperlipidemia, unspecified; E03.9 Hypothyroidism, unspecified; E87.5 Hyperkalemia; G47.33 Obstructive sleep apnea (adult) (pediatric); I83.90 Asymptomatic varicose veins of unspecified lower extremity; K21.9 Gastro-esophageal reflux disease without esophagitis; Z77.22 Contact with and (suspected) exposure to environmental tobacco smoke (acute) (chronic); Z79.82 Long term (current) use of aspirin; Z79.890 Hormone replacement therapy; Z79.899 Other long term (current) drug therapy; Y83.0 Surgical operation with transplant of whole organ as the cause of abnormal reaction of the patient, or of later complication, without mention of misadventure at the time of the procedure
CPT/HCPCS: 36415; 71046; 71275; 80048; 80053; 83735; 83880; 84484; 85025; 85027; 85379; 85610; 85652; 85730; 87636; 90935; 93005; 93306; 93458; 96374; 99285